=== PATIENT | female | born 1960 | race Caucasian/White ===

== ENCOUNTER 2019-02-23 19:57 | Emergency (ER) | payer MEDICARE, OTHER ==
--- NOTE | 2019-02-23 21:50 | ED ---
Extremity Problem HPI - General Chief complaint: Extremity Problem,Nontraumatic Stated complaint: Knee pain Time Seen by Provider: 02/23/19 21:31 Source: patient Mode of arrival: EMS Limitations: no limitations - History of Present Illness Initial comments: Patient is a 58-year-old female presenting to the emergency Department with complaints of left knee pain 2 days. Patient states her left knee started hurting yesterday but when she woke up this morning the pain has increased. Patient is having a hard time walking and is not able to bend the knee very far. Patient has no prior history of pain or injury in her left knee. Patient denies history of gout. Patient denies fever, chills, nausea, vomiting, redness to the area. No other complaints at this time. - Related Data Allergies Allergy/AdvReac Type Severity Reaction Status Date / Time No Known Allergies Allergy Verified 02/23/19 20:35 Review of Systems ROS Statement: Those systems with pertinent positive or pertinent negative responses have been documented in the HPI. ROS Other: All systems not noted in ROS Statement are negative. Past Medical History Past Medical History: COPD, Dementia, Hypertension, Thyroid Disorder Additional Past Medical History / Comment(s): Hernia History of Any Multi-Drug Resistant Organisms: None Reported Past Surgical History: Orthopedic Surgery Past Psychological History: No Psychological Hx Reported Smoking Status: Current every day smoker Past Alcohol Use History: None Reported Past Drug Use History: None Reported General Exam - General Exam Comments Initial Comments: GENERAL: Well-appearing, well-nourished and in no acute distress. HEAD: Atraumatic, normocephalic. EYES: Pupils equal round and reactive to light, extraocular movements intact, sclera anicteric, conjunctiva are normal. ENT: TMs normal, nares patent, oropharynx clear without exudates. Moist mucous membranes. NECK: Normal range of motion, supple without lymphadenopathy or JVD. LUNGS: Breath sounds clear to auscultation bilaterally and equal. No wheezes rales or rhonchi. HEART: Regular rate and rhythm without murmurs, rubs or gallops. ABDOMEN: Soft, nontender, normoactive bowel sounds. No guarding, no rebound. No masses appreciated. : Deferred EXTREMITIES: Pain with palpation on the lateral aspect of the left knee. Patient has full extension but limited flexion secondary to pain. There is no erythema of the left knee. NEUROLOGICAL: Cranial nerves II through XII grossly intact. Normal speech, normal gait. PSYCH: Normal mood, normal affect. SKIN: Warm, Dry, normal turgor, no rashes or lesions noted. Limitations: no limitations Course Vital Signs 02/23/19 02/23/19 20:30 22:25 Temperature 98.8 F 98.0 F Pulse Rate 99 88 Respiratory 19 22 Rate Blood Pressure 175/84 158/78 O2 Sat by Pulse 93 L 95 Oximetry Medical Decision Making - Medical Decision Making Patient is a 58-year-old female complains of left knee pain 2 days. Patient denies any fall or trauma to the knee. On exam patient is very tender to the lateral aspect of the left knee. There is no swelling of the knee or erythema. X-ray of the left knee shows a small calcification overlying the left LCL. No acute bony abnormalities. Patient will be discharged home and given instructions of icing and gentle range of motion. Patient was given orthopedic referral if symptoms continue for 1-2 weeks. Patient is in agreement with this plan. Return parameters were discussed with patient she verbalized understanding. Case discussed with Dr. Wills. Disposition Clinical Impression: Left lateral knee pain Disposition: HOME SELF-CARE Condition: Stable Instructions (If sedation given, give patient instructions): Knee Pain (ED) Additional Instructions: Please return to the Emergency Department if symptoms worsen or any other concerns. Use ice and Tylenol for knee pain as discussed. Follow up with orthopedic in one to 2 weeks if symptoms continue. Is patient prescribed a controlled substance at d/c from ED?: No Referrals: None,Stated [Primary Care Provider] - 1-2 days Silver Padilla MD [STAFF PHYSICIAN] - 1-2 days
--- NOTE | 2019-02-23 22:11 | XR ---
EXAM: XR Left Knee, 3 views CLINICAL HISTORY: ITS.REASON XR Reason: Pain TECHNIQUE: Three views of the left knee. COMPARISON: None. FINDINGS: Bones/joints: Mild tricompartmental arthrosis. Calcification overlying the left lateral collateral ligament which may represent sequela of prior injury. No acute fracture. No dislocation. Soft tissues: Unremarkable. IMPRESSION: 1. No acute osseous abnormality. 2. Mild tricompartmental arthrosis.
[2019-02-23 22:36] VITALS: BP 158/78; PULSE 88; RESP 22; TEMP 98
== END 2019-02-23 22:25 | disposition home or self-care (01) ==
LOC: EC 19:57
DX: M25.562 Pain in left knee (principal); R93.7 Abnormal findings on diagnostic imaging of other parts of musculoskeletal system; F17.200 Nicotine dependence, unspecified, uncomplicated
CPT/HCPCS: 99283

== ENCOUNTER 2019-04-12 18:43 | Inpatient (IN) | payer MEDICARE, OTHER ==
[2019-04-12] MEDS ORDERED: ALBUTEROL NEBULIZED 2.5 MG/3 ML INHALATION STA (19:20)
[2019-04-12] MEDS ORDERED: IPRATROPIUM 0.5 MG/2.5 ML NEBU INHALATION STA (19:20)
[2019-04-12] MEDS ORDERED: DEXAMETHASONE 4 MG TAB PO STA (19:21)
--- NOTE | 2019-04-12 19:24 | ED ---
General Adult HPI - General Chief complaint: Shortness of Breath Stated complaint: SOB Time Seen by Provider: 04/12/19 18:46 Source: patient, EMS Mode of arrival: EMS Limitations: no limitations - History of Present Illness Initial comments: Dictation was produced using [employer] dictation software. please excuse any grammatical, word or spelling errors. Chief Complaint: 59-year-old female presents with dyspnea. History of Present Illness: 89-year-old female she has been without her medications ever since she was kicked out of a homeless [place] [facility] 3 days ago. Patient states that her medications were thrown away when she got kicked out. She is without her albuterol. Patient reports that she does not have any primary care physician. At one point she was given an six-month supply from a doctor in [place]. Patient disposition to short of breath has not had her medications 3 days. Patient states she has had 4 medications that she does not know the name of them are. The ROS documented in this emergency department record has been reviewed and confirmed by me. Those systems with pertinent positive or negative responses have been documented in the HPI. All other systems are other negative and/or noncontributory. PHYSICAL EXAM: General Impression: Alert and oriented x3, not in acute distress HEENT: Normocephalic atraumatic, extra-ocular movements intact, pupils equal and reactive to light bilaterally, mucous membranes moist. Cardiovascular: Heart regular rate and rhythm, S1&S2 audible, no murmurs, rubs or gallops Chest: Diffuse lung wheezing Abdomen: Bowel sounds present, abdomen soft, non-tender, non-distended, no organomegaly Musculoskeletal: Pulses present and equal in all extremities, no peripheral edema Motor: no focal deficits noted Neurological: CN II-XII grossly intact, no focal motor or sensory deficits noted Skin: Intact with no visualized rashes Psych: Normal affect and mood ED course: 59-year-old female presents with mild COPD exacerbation secondary to medication. She is homeless and without resources to obtain his medications. As upon arrival shows heart rate of 111, O2 sat of 90, rest of vital signs within acceptable limits. Laboratory evaluation obtained. Mild occipital 0.9, rest of labs unremarkable. Chest x-ray shows questionable bilateral lower lobe infiltrates. Patient has any symptoms of pneumonia however given that patient have extensive history of COPD exacerbation patient is given azithromycin. Patient be admitted to observation for COPD exacerbation. EKG interpretation: Ventricular rate 104, sinus tachycardia,. 150, Q is 92, QTC 49. No AR prolongation, no QTC prolongation, no ST or T-wave changes noted. Overall, this EKG is unremarkable - Related Data Home Medications Medication Instructions Recorded Confirmed Albuterol Inhaler [Ventolin Hfa 1 - 2 puff INHALATION RT-Q6H PRN 04/12/19 04/12/19 Inhaler] Atorvastatin [Lipitor] 20 mg PO DAILY 04/12/19 04/12/19 Diltiazem HCl [Cardizem CD] 360 mg PO DAILY 04/12/19 04/12/19 Fluticasone/Vilanterol [Breo 1 puff INHALATION RT-DAILY 04/12/19 04/12/19 Ellipta 100-25 Mcg Inhaler] Ipratropium-Albuterol Nebulize 3 ml INHALATION RT-QID 04/12/19 04/12/19 [Duoneb 0.5 mg-3 mg/3 ml Soln] Levothyroxine Sodium 200 mcg PO DAILY 04/12/19 04/12/19 Lisinopril 40 mg PO BID 04/12/19 04/12/19 Omeprazole 20 mg PO DAILY 04/12/19 04/12/19 amLODIPine [Norvasc] 5 mg PO DAILY 04/12/19 04/12/19 metFORMIN HCL [Glucophage] 1,000 mg PO BID 04/12/19 04/12/19 Allergies Allergy/AdvReac Type Severity Reaction Status Date / Time NSAIDS (Non-Steroidal AdvReac ULCERS Verified 04/12/19 19:05 Anti-Inflamma Review of Systems ROS Statement: Those systems with pertinent positive or pertinent negative responses have been documented in the HPI. ROS Other: All systems not noted in ROS Statement are negative. Past Medical History Past Medical History: COPD, Dementia, Hypertension, Thyroid Disorder Additional Past Medical History / Comment(s): Hernia History of Any Multi-Drug Resistant Organisms: None Reported Past Surgical History: Orthopedic Surgery Past Psychological History: No Psychological Hx Reported Smoking Status: Current every day smoker Past Alcohol Use History: None Reported Past Drug Use History: None Reported General Exam Limitations: no limitations Course Vital Signs 04/12/19 04/12/19 04/12/19 18:46 19:45 20:00 Temperature 98.8 F Pulse Rate 111 H 100 102 H Respiratory 24 Rate Blood Pressure 170/102 O2 Sat by Pulse 90 L Oximetry 04/12/19 21:21 Temperature Pulse Rate 99 Respiratory 18 Rate Blood Pressure 144/79 O2 Sat by Pulse 94 L Oximetry Medical Decision Making - Lab Data Result diagrams: 04/12/19 19:55 04/12/19 19:55 Lab Results 04/12/19 04/12/19 Range/Units 19:55 19:55 WBC 12.9 H (3.8-10.6) k/uL RBC 4.98 (3.80-5.40) m/uL Hgb 13.7 (11.4-16.0) gm/dL Hct 43.2 (34.0-46.0) % MCV 86.7 (80.0-100.0) fL MCH 27.4 (25.0-35.0) pg MCHC 31.6 (31.0-37.0) g/dL RDW 16.2 H (11.5-15.5) % Plt Count 355 (150-450) k/uL Neutrophils % 58 % Lymphocytes % 28 % Monocytes % 4 % Eosinophils % 7 % Basophils % 1 % Neutrophils # 7.5 (1.3-7.7) k/uL Lymphocytes # 3.6 (1.0-4.8) k/uL Monocytes # 0.6 (0-1.0) k/uL Eosinophils # 0.9 H (0-0.7) k/uL Basophils # 0.2 (0-0.2) k/uL Hypochromasia Slight Anisocytosis Slight Sodium 137 (137-145) mmol/L Potassium 4.4 (3.5-5.1) mmol/L Chloride 106 (98-107) mmol/L Carbon Dioxide 23 (22-30) mmol/L Anion Gap 8 mmol/L BUN 23 H (7-17) mg/dL Creatinine 1.07 H (0.52-1.04) mg/dL Est GFR (CKD-EPI)AfAm 66 (>60 ml/min/1.73 sqM) Est GFR (CKD-EPI)NonAf 57 (>60 ml/min/1.73 sqM) Glucose 166 H (74-99) mg/dL Calcium 8.9 (8.4-10.2) mg/dL Disposition Clinical Impression: COPD exacerbation Disposition: ADMITTED IP TO THIS HOSP Condition: Fair Referrals: None,Stated [Primary Care Provider] - 1-2 days Decision Time: 21:25
--- NOTE | 2019-04-12 19:49 | XR ---
EXAMINATION TYPE: XR chest 2V DATE OF EXAM: 04/12/2019 COMPARISON: NONE HISTORY: Short of breath TECHNIQUE: Frontal and lateral views of the chest are obtained. FINDINGS: Heart and mediastinum are normal. There is a 1.5 cm dense nodular opacity in the left para spinal left lower lobe. There is no heart failure. There is probably some infiltrate in both lower lo bes. There is no pleural effusion. Bony thorax appears intact. There is no pleural effusion. IMPRESSION: Mild bilateral lower lobe pulmonary infiltrates. Left lower lobe nodule. This nodule cou ld be a granuloma. Follow-up is recommended show clearing.
[2019-04-12 20:20] LABS: Anisocytosis Slight; Basophils # (A) 0.2 k/uL (0-0.2); Basophils % (A) 1 %; Eosinophils # (A) 0.9 k/uL (0-0.7); Eosinophils % (A) 7 %; HCT 43.2 % (34.0-46.0); HGB 13.7 gm/dL (11.4-16.0); Hypochromasia Slight; Lymphocytes # (A) 3.6 k/uL (1.0-4.8); Lymphocytes % (A) 28 %; MCH 27.4 pg (25.0-35.0); MCHC 31.6 g/dL (31.0-37.0); MCV 86.7 fL (80.0-100.0); Mean Platelet Volume 7.4; Monocytes # (A) 0.6 k/uL (0-1.0); Monocytes % (A) 4 %; Neutrophils # (A) 7.5 k/uL (1.3-7.7); Neutrophils % (A) 58 %; Platelet Count 355 k/uL (150-450); RBC 4.98 m/uL (3.80-5.40); RDW 16.2 % (11.5-15.5); WBC 12.9 k/uL (3.8-10.6)
[2019-04-12 20:25] LABS: Calcium 8.9 mg/dL (8.4-10.2); Potassium 4.4 mmol/L (3.5-5.1)
[2019-04-12] MEDS ORDERED: AZITHROMYCIN 500 MG TAB PO STA (20:31)
[2019-04-12 23:11] LABS: Glucose,Whole Blood 174 mg/dL (75-99)
[2019-04-13] MEDS ORDERED: ALBUTEROL NEBULIZED 2.5 MG/3 ML INHALATION PRN (04:00)
[2019-04-13] MEDS: LEVOTHYROXINE 100 MCG TAB PO SCH (05:43)
[2019-04-13] MEDS: SYMBICORT 80-4.5 MCG INHALER INHALATION SCH ×2 (07:23→19:24)
[2019-04-13] MEDS: IPRATROPIUM-ALBUTEROL 3 ML NEB INHALATION PRN ×3 (07:23→15:14)
[2019-04-13] MEDS: metFORMIN 500 MG TAB PO SCH ×2 (07:44→20:50)
[2019-04-13] MEDS: amLODIPine 5 MG TAB PO SCH (07:44)
[2019-04-13] MEDS: ATORVASTATIN 20 MG TAB PO SCH (07:44)
[2019-04-13] MEDS: INSULIN ASPART (NovoLOG) 100 UNIT/ML VIAL SQ SCH ×4 (07:44→22:48)
[2019-04-13] MEDS: PANTOPRAZOLE 40 MG TABLET PO SCH (07:44)
[2019-04-13] MEDS: LISINOPRIL 20 MG TAB PO SCH ×2 (07:44→20:51)
[2019-04-13] MEDS: AZITHROMYCIN 500 MG TAB PO SCH (07:44)
[2019-04-13 07:45] LABS: Glucose,Whole Blood 276 mg/dL (75-99)
[2019-04-13] MEDS: DILTIAZEM CD 180 MG CAP.ER.24H PO SCH (07:58)
[2019-04-13 12:04] LABS: Glucose,Whole Blood 234 mg/dL (75-99)
[2019-04-13] MEDS ORDERED: ALPRAZolam 0.25 MG TAB PO PRN (16:04)
[2019-04-13] MEDS ORDERED: ACETAMINOPHEN TAB 500 MG TAB PO PRN (16:04)
[2019-04-13 16:59] LABS: Glucose,Whole Blood 179 mg/dL (75-99)
[2019-04-13] MEDS: NICOTINE 14MG/24HR PATCH TRANSDERM SCH (17:29)
[2019-04-13] MEDS: methylPREDNISolone SOD SUCCI 125 MG/2 ML VIAL IV SCH ×2 (17:37→23:52)
--- NOTE | 2019-04-13 18:25 | HP ---
HISTORY AND PHYSICAL DATE OF SERVICE: 04/13/2019 CHIEF COMPLAINT: Shortness of breath. HISTORY OF PRESENT ILLNESS: This 59-year-old woman with a past medical history of multiple medical problems, including COPD, history of diabetes, hypertension, hypothyroidism, hernia, being followed by no primary physician in the outpatient setting, apparently is currently homeless. The patient's medicines were thrown away when she was kicked out of the assisted, according to her. Currently the patient is having increased shortness of breath and cough and sputum. Patient came to [facility] and was admitted for further evaluation and treatment. Chest x-ray showed bilateral pneumonia, right more than left, and the patient was admitted for further evaluation. There is no history of any fever, rigor or chills at this time. PAST MEDICAL HISTORY: 1. COPD. 2. Diabetes mellitus. 3. Hypertension. 4. Hypothyroidism. 5. Hernia repair. HOME MEDICATIONS: 1. Glucophage 1000 mg p.o. b.i.d. 2. Norvasc 5 mg p.o. daily. 3. Omeprazole 20 mg p.o. daily. 4. Lisinopril 40 mg p.o. b.i.d. 5. Levothyroxine 200 mcg p.o. daily. 6. DuoNeb q.i.d. 7. Breo Ellipta 100/25 mg p.o. daily. 8. Cardizem CD 360 mg p.o. daily. 9. Lipitor 20 mg p.o. daily. 10.Ventolin HFA 1-2 puffs q.6 p.r.n. ALLERGIES: NSAIDS. FAMILY HISTORY: No history of heart disease or strokes in the family. SOCIAL HISTORY: History of smoking, ongoing. REVIEW OF SYSTEMS: ENT: Diminished hearing. Diminished vision. CARDIOVASCULAR SYSTEM: No angina, palpitations. RESPIRATORY SYSTEM: As mentioned earlier. GI: No nausea, vomiting. : No dysuria or retention. NERVOUS SYSTEM: No numbness, weakness. ALLERGY/IMMUNOLOGY: No asthma, hayfever. MUSCULOSKELETAL: As mentioned earlier. HEMATOLOGY/ONCOLOGY: No history of anemia. ENDOCRINE: Hypothyroidism. CONSTITUTIONAL: As mentioned earlier. DERMATOLOGY: Negative. RHEUMATOLOGY: Negative. PSYCHIATRY: As mentioned earlier. PHYSICAL EXAMINATION: Patient alert and oriented x3. Pulse is 68, blood pressure 107/61, respiration 16, temperature 98.2, pulse ox 94% on 3 L. HEENT: Conjunctivae normal. Oral mucosa moist. NECK: No jugular venous distention. No carotid bruit. No lymph node enlargement. CARDIOVASCULAR SYSTEM: S1, S2 muffled. No S3. No S4. RESPIRATORY SYSTEM: Breath sounds diminished at the bases. Breathing efforts are markedly increased. Bilateral scattered rhonchi and crackles. Expiratory wheezing also present. ABDOMEN: Soft, non-tender. No mass palpable. LEGS: No edema. No swelling. NERVOUS SYSTEM: Higher functions as mentioned earlier. Moves all 4 limbs. No focal motor or sensory deficit. LYMPHATICS: No lymph node palpable in neck, axillae or groin. SKIN: No ulcer, rash, bleeding. JOINTS: No active deforming arthropathy. LABS: WBC 12.9, hemoglobin 13.7. Sodium 137, potassium 4.4, creatinine 1.07. Accu-Cheks are 174, 276. ASSESSMENT: 1. Chronic obstructive pulmonary disease, acute exacerbation, with bilateral pneumonia, right more than left, possibly gram-negative. 2. Diabetes mellitus, type 2, with hyperglycemia. 3. Increased creatinine with possible acute renal failure, prerenal renal failure, acute tubular necrosis. 4. Increased white count. 5. History of chronic obstructive pulmonary disease. 6. Diabetes mellitus, type 2. 7. Hypertension. 8. Hypothyroidism. 9. History of hernia. 10.History of degenerative joint disease. 11.History of nicotine dependence, continued ongoing. 12.Obesity with body mass index 44.7. 13.Homelessness. RECOMMENDATIONS AND DISCUSSION: In this 59-year-old woman who presented with multiple complex medical issues, we will monitor the patient closely, continue the current management, continue symptomatic treatment. Will initiate pulmonary consultation. Will start bronchodilators. Otherwise, empiric antibiotics. Also recommend close followup with a primary physician Guarded prognosis because of multiple complex medical issues. Further recommendations to follow. Discussed with the patient, who understands and agrees. MMODL / IJN: [id number] /
[2019-04-13] MEDS: IPRATROPIUM-ALBUTEROL 3 ML NEB INHALATION SCH (19:26)
--- NOTE | 2019-04-13 19:43 | P.CNPUL ---
History of Present Illness Consult date: 04/13/19 Requesting physician: Marlo Weaver Reason for consult: dyspnea Chief complaint: Shortness of breath. History of present illness: This is a 59-year-old female patient with a history of hypertension, hypothyroidism, hyperlipidemia, chronic and ongoing tobacco dependence, COPD. She is on Breo, Ventolin HFA, DuoNeb inhalations. She had presented here to the emergency room today with complaints of increasing shortness of breath cough and congestion. She states she has been without her medications for at least 3 days now since she was kicked out of a long term. She states she did not have any primary care physician and her last medications were filled for a 6 month supply from physician in [place]. Chest x-ray shows mild bilateral lobe pulmonary infiltrates, left lower lobe nodule possible granuloma. Initial oxygen saturation 90% on room air. Influenza screen negative. White count 12.9. Hemoglobin 13.7. Creatinine 1.07. She's been initiated on DuoNeb inhalations, IV Solu-Medrol, Symbicort. She is on ceftriaxone and azithromycin. She is seen today in consultation on the regular medical floor. She is currently awake and alert in no acute distress. Breathing a bit easier tonight as compared to earlier this morning. Maintaining O2 saturations in the low 90s on 3 L/m per n mauro cannula. She's afebrile. Hemodynamically stable. Review of Systems REVIEW OF SYSTEMS: CONSTITUTIONAL: Denies any recent significant weight loss or weight gain. EYES: Diminished vision. EARS, NOSE, MOUTH, THROAT: Somewhat hard of hearing. Denies headaches, denies s ore throat. CARDIOVASCULAR: Denies chest pain, palpitations or syncopal episodes. RESPIRATORY: Positive for shortness of breath, cough, congestion no hemoptysis. GASTROINTESTINAL: Denies change in appetite, denies abdominal pain GENITOURINARY: Denies hematuria, denies infections. MUSKULOSKELETAL: Denies pain, denies swelling. INTEGUMENTARY: Denies rash, denies eczema. NEUROLOGICAL: Denies recent memory loss, no recent seizure activity. PSYCHIATRIC: Denies anxiety, denies depression. HEMATOLOGIC/LYMPHATIC: Denies anemia, denies enlarged lymph nodes. Past Medical History Past Medical History: COPD, Diabetes Mellitus, Hypertension, Thyroid Disorder Additional Past Medical History / Comment(s): Hernia History of Any Multi-Drug Resistant Organisms: None Reported Past Surgical History: Orthopedic Surgery Past Psychological History: No Psychological Hx Reported Smoking Status: Current every day smoker Past Alcohol Use History: None Reported Past Drug Use History: None Reported Medications and Allergies Home Medications Medication Instructions Recorded Confirmed Type Albuterol Inhaler [Ventolin Hfa 1 - 2 puff INHALATION RT-Q6H PRN 04/12/19 04/12/19 History Inhaler] Atorvastatin [Lipitor] 20 mg PO DAILY 04/12/19 04/12/19 History Diltiazem HCl [Cardizem CD] 360 mg PO DAILY 04/12/19 04/12/19 History Fluticasone/Vilanterol [Breo 1 puff INHALATION RT-DAILY 04/12/19 04/12/19 History Ellipta 100-25 Mcg Inhaler] Ipratropium-Albuterol Nebulize 3 ml INHALATION RT-QID 04/12/19 04/12/19 History [Duoneb 0.5 mg-3 mg/3 ml Soln] Levothyroxine Sodium 200 mcg PO DAILY 04/12/19 04/12/19 History Lisinopril 40 mg PO BID 04/12/19 04/12/19 History Omeprazole 20 mg PO DAILY 04/12/19 04/12/19 History amLODIPine [Norvasc] 5 mg PO DAILY 04/12/19 04/12/19 History metFORMIN HCL [Glucophage] 1,000 mg PO BID 04/12/19 04/12/19 History Allergies Allergy/AdvReac Type Severity Reaction Status Date / Time NSAIDS (Non-Steroidal AdvReac ULCERS Verified 04/12/19 19:05 Anti-Inflamma Physical Exam Vitals: Vital Signs Temp Pulse Pulse Resp BP BP Pulse Ox 04/13/19 19:26 90 94 L 04/13/19 15:28 92 04/13/19 15:14 88 04/13/19 15:12 16 04/13/19 14:07 98.2 F 68 16 107/61 94 L 04/13/19 11:12 100 04/13/19 10:57 100 04/13/19 08:00 20 04/13/19 07:39 96 04/13/19 07:24 92 04/13/19 05:00 98 F 94 20 127/76 93 L 04/12/19 22:50 98.1 F 99 20 161/89 92 L 04/12/19 22:13 98.8 F 95 20 148/85 93 L 04/12/19 21:47 90 L 04/12/19 21:21 99 24 144/79 94 L 04/12/19 20:00 102 H 04/12/19 19:55 22 04/12/19 19:45 100 Intake and Output 04/13/19 04/13/19 04/13/19 06:59 14:59 22:59 Intake Total 100 520 Balance 100 520 Intake: Oral 100 520 Other: Voiding Method Toilet Toilet Toilet # Voids 2 3 GENERAL EXAM: Alert, pleasant 59-year-old female, comfortable in no apparent distress. On 3 L per nasal cannula. HEAD: Normocephalic. EYES: Normal reaction of pupils, equal size. NOSE: Clear with pink turbinates. THROAT: No erythema or exudates. NECK: No masses, no JVD. CHEST: No chest wall deformity. LUNGS: Equal air entry with end expiratory wheeze, diminished. CVS: S1 and S2 normal with no audible murmur, regular rhythm. ABDOMEN: No hepatosplenomegaly, normal bowel sounds, no guarding or rigidity. SPINE: No scoliosis or deformity SKIN: No rashes CENTRAL NERVOUS SYSTEM: No focal deficits, tone is normal in all 4 extremities. EXTREMITIES: There is no peripheral edema. No clubbing, no cyanosis. Peripheral pulses are intact. Results - Laboratory Findings CBC and BMP: 04/12/19 19:55 04/12/19 19:55 Abnormal lab findings: Abnormal Labs 04/12/19 04/12/19 04/12/19 19:55 19:55 22:58 WBC 12.9 H RDW 16.2 H Eosinophils # 0.9 H BUN 23 H Creatinine 1.07 H Glucose 166 H POC Glucose (mg/dL) 174 H 04/13/19 04/13/19 04/13/19 07:22 11:59 16:54 WBC RDW Eosinophils # BUN Creatinine Glucose POC Glucose (mg/dL) 276 H 234 H 179 H - Diagnostic Findings Chest x-ray: image reviewed Assessment and Plan Assessment: Impression: #1 Acute hypoxic respiratory failure secondary to an acute exacerbation of chronic obstructive pulmonary disease secondary to lack of outpatient medication. #2 Chronic and ongoing tobacco dependence. #3 Hypothyroidism. #4 Hypertension. #5 Hyperlipidemia. #6 Hypothyroidism. Plan: The patient was seen and evaluated by Dr. Roberts. Chest x-ray and labs reviewed. We'll continue with the treatment plan for her COPD exacerbation including DuoNeb inhalations, Symbicort, IV Solu medrol. Empiric antibiotics in the form of ceftriaxone and azithromycin. No clear evidence of pneumonia. She is educated regarding the importance of complete smoking cessation. NicoDerm patch is in place. real estate services coordinator for discharge planning as the patient is currently homeless. Will continue to follow and make further recommendations based on her clinical status. I, the cosigning physician, performed a history & physical examination of the patient. Lungs sounds with end expiratory wheeze.. Maintaining good O2 saturations in the 90s on 3 L/m per nasal cannula I discussed the assessment and plan of care with my nurse practitioner, Esme Smith. I attest to the above note as dictated by her. Time with Patient: Greater than 30
[2019-04-13] MEDS: HEPARIN SODIUM,PORCINE 5,000 UNIT/ML 1 ML VIAL SQ SCH (20:51)
[2019-04-13 21:26] LABS: Glucose,Whole Blood 244 mg/dL (75-99)
[2019-04-14] MEDS: IPRATROPIUM-ALBUTEROL 3 ML NEB INHALATION PRN (00:49)
[2019-04-14] MEDS: methylPREDNISolone SOD SUCCI 125 MG/2 ML VIAL IV SCH ×2 (05:27→12:37)
[2019-04-14] MEDS: LEVOTHYROXINE 100 MCG TAB PO SCH (05:28)
[2019-04-14 07:17] LABS: Glucose,Whole Blood 264 mg/dL (75-99)
[2019-04-14] MEDS: AZITHROMYCIN 500 MG TAB PO SCH (07:45)
[2019-04-14] MEDS: PANTOPRAZOLE 40 MG TABLET PO SCH (07:45)
[2019-04-14] MEDS: ATORVASTATIN 20 MG TAB PO SCH (07:45)
[2019-04-14] MEDS: LISINOPRIL 20 MG TAB PO SCH ×2 (07:45→20:43)
[2019-04-14] MEDS: amLODIPine 5 MG TAB PO SCH (07:45)
[2019-04-14] MEDS: INSULIN ASPART (NovoLOG) 100 UNIT/ML VIAL SQ SCH ×4 (07:45→20:48)
[2019-04-14] MEDS: NICOTINE 14MG/24HR PATCH TRANSDERM SCH (07:45)
[2019-04-14] MEDS: MULTIVITAMINS, THERA 1 EACH TAB PO SCH (07:46)
[2019-04-14] MEDS: HEPARIN SODIUM,PORCINE 5,000 UNIT/ML 1 ML VIAL SQ SCH ×3 (07:46→20:43)
[2019-04-14] MEDS: DILTIAZEM CD 180 MG CAP.ER.24H PO SCH (07:46)
[2019-04-14] MEDS: metFORMIN 500 MG TAB PO SCH ×2 (07:46→20:43)
[2019-04-14] MEDS: IPRATROPIUM-ALBUTEROL 3 ML NEB INHALATION SCH ×4 (09:16→21:47)
[2019-04-14] MEDS: SYMBICORT 80-4.5 MCG INHALER INHALATION SCH ×2 (09:16→21:47)
[2019-04-14 10:02] LABS: Anisocytosis Slight; Basophils % (A) 0 %; Eosinophils # (A) 0.1 k/uL (0-0.7); Eosinophils % (A) 1 %; HGB 13.2 gm/dL (11.4-16.0); Lymphocytes # (A) 1.5 k/uL (1.0-4.8); Lymphocytes % (A) 13 %; MCH 27.3 pg (25.0-35.0); MCHC 31.4 g/dL (31.0-37.0); MCV 86.9 fL (80.0-100.0); Monocytes # (A) 0.2 k/uL (0-1.0); Monocytes % (A) 1 %; Neutrophils # (A) 9.4 k/uL (1.3-7.7); Neutrophils % (A) 84 %; Platelet Count 421 k/uL (150-450); RBC 4.83 m/uL (3.80-5.40); RDW 16.4 % (11.5-15.5); WBC 11.1 k/uL (3.8-10.6)
[2019-04-14 10:09] LABS: Calcium 9.1 mg/dL (8.4-10.2); Potassium 5.2 mmol/L (3.5-5.1)
[2019-04-14 12:18] LABS: Glucose,Whole Blood 311 mg/dL (75-99)
[2019-04-14 13:22] LABS: Glucose,Whole Blood 286 mg/dL (75-99)
--- NOTE | 2019-04-14 13:58 | P.PN ---
Subjective Progress Note Date: 04/14/19 Principal diagnosis: Acute exacerbation of chronic obstructive pulmonary disease. This is a 59-year-old female patient with a history of hypertension, hypothyroidism, hyperlipidemia, chronic and ongoing tobacco dependence, COPD. She is on Breo, Ventolin HFA, DuoNeb inhalations. She had presented here to the emergency room today with complaints of increasing shortness of breath cough and congestion. She states she has been without her medications for at least 3 days now since she was kicked out of a jail. She states she did not have any primary care physician and her last medications were filled for a 6 month supply from physician in [place]. Chest x-ray shows mild bilateral lobe pulmonary infiltrates, left lower lobe nodule possible granuloma. Initial oxygen saturation 90% on room air. Influenza screen negative. White count 12.9. Hemoglobin 13.7. Creatinine 1.07. She's been initiated on DuoNeb inhalations, IV Solu-Medrol, Symbicort. She is on ceftriaxone and azithromycin. She is seen today in consultation on the regular medical floor. She is currently awake and alert in no acute distress. Breathing a bit easier tonight as compared to earlier this morning. Maintaining O2 saturations in the low 90s on 3 L/m per nasal cannula. She's afebrile. Hemodynamically stable. The patient is seen today 04/14/2019 in follow-up on the regular medical floor. She is awake and alert in no acute distress. She is breathing a bit easier today as compared to yesterday. Not quite back to her baseline. 18 O2 saturations in the 90s on room air. She's afebrile. Count 11.1. Hemoglobin 13.2. Creatinine 1.44. Objective - Vital Signs Vital signs: Vital Signs Temp 97.6 F 04/14/19 12:10 Pulse 76 04/14/19 13:14 Resp 20 04/14/19 12:10 BP 102/58 04/14/19 12:10 Pulse Ox 91 L 04/14/19 12:10 Intake & Output 04/13/19 04/14/19 04/14/19 18:59 06:59 18:59 Intake Total 520 Balance 520 Intake: Oral 520 Other: Voiding Method Toilet Toilet # Voids 3 0 1 # Bowel Movements 0 - Exam GENERAL EXAM: Alert, pleasant 59-year-old female, comfortable in no apparent distress. On room air. HEAD: Normocephalic. EYES: Normal reaction of pupils, equal size. NOSE: Clear with pink turbinates. THROAT: No erythema or exudates. NECK: No masses, no JVD. CHEST: No chest wall deformity. LUNGS: Equal air entry with end expiratory wheeze, diminished. CVS: S1 and S2 normal with no audible murmur, regular rhythm. ABDOMEN: No hepatosplenomegaly, normal bowel sounds, no guarding or rigidity. SPINE: No scoliosis or deformity SKIN: No rashes CENTRAL NERVOUS SYSTEM: No focal deficits, tone is normal in all 4 extremities. EXTREMITIES: There is no peripheral edema. No clubbing, no cyanosis. Peripheral pulses are intact. - Labs CBC & Chem 7: 04/14/19 09:04/14/19 09: Labs: Abnormal Lab Results - Last 24 Hours (Table) 04/13/19 04/13/19 04/14/19 Range/Units 16:54 21:17 07:16 WBC (3.8-10.6) k/uL RDW (11.5-15.5) % Neutrophils # (1.3-7.7) k/uL Sodium (137-145) mmol/L Potassium (3.5-5.1) mmol/L Carbon Dioxide (22-30) mmol/L BUN (7-17) mg/dL Creatinine (0.52-1.04) mg/dL Glucose (74-99) mg/dL POC Glucose (mg/dL) 179 H 244 H 264 H (75-99) mg/dL 04/14/19 04/14/19 04/14/19 Range/Units 09:26 09:26 12:12 WBC 11.1 H (3.8-10.6) k/uL RDW 16.4 H (11.5-15.5) % Neutrophils # 9.4 H (1.3-7.7) k/uL Sodium 132 L (137-145) mmol/L Potassium 5.2 H (3.5-5.1) mmol/L Carbon Dioxide 18 L (22-30) mmol/L BUN 42 H (7-17) mg/dL Creatinine 1.44 H (0.52-1.04) mg/dL Glucose 305 H (74-99) mg/dL POC Glucose (mg/dL) 311 H (75-99) mg/dL 04/14/19 Range/Units 13:19 WBC (3.8-10.6) k/uL RDW (11.5-15.5) % Neutrophils # (1.3-7.7) k/uL Sodium (137-145) mmol/L Potassium (3.5-5.1) mmol/L Carbon Dioxide (22-30) mmol/L BUN (7-17) mg/dL Creatinine (0.52-1.04) mg/dL Glucose (74-99) mg/dL POC Glucose (mg/dL) 286 H (75-99) mg/dL Assessment and Plan Assessment: Impression: #1 Acute hypoxic respiratory failure secondary to an acute exacerbation of chronic obstructive pulmonary disease secondary to lack of outpatient medication. #2 Chronic and ongoing tobacco dependence. #3 Hypothyroidism. #4 Hypertension. #5 Hyperlipidemia. #6 Hypothyroidism. Plan: The patient was seen and evaluated by Dr. Roberts. He is improved today as compared to yesterday. We'll continue with the current treatment plan. She is educated regarding the importance of complete smoking cessation. NicoDerm patch is in place. human resources services specialist for discharge planning as the patient is currently homeless. Will continue to follow and make further recommendations based on her clinical status. I, the cosigning physician, performed a history & physical examination of the patient. Lungs sounds with end expiratory wheeze.. Maintaining good O2 saturations in the 90s on room air I discussed the assessment and plan of care with my nurse practitioner, Esme Smith. I attest to the above note as dictated by her.
[2019-04-14] MEDS ORDERED: INSULIN REGULAR 100 UNIT/ML VIAL SQ ONE (14:07)
[2019-04-14] MEDS ORDERED: INSULIN ASPART (NovoLOG) 100 UNIT/ML VIAL SQ ONE (14:28)
[2019-04-14] MEDS ORDERED: ONDANSETRON 4 MG/2 ML VIAL IVP PRN (14:36)
[2019-04-14] MEDS: HYDROcodone/APAP 5-325MG 1 EACH TAB PO PRN ×2 (14:43→20:41)
--- NOTE | 2019-04-14 17:17 | XR ---
EXAMINATION TYPE: XR chest 1V portable DATE OF EXAM: 04/14/2019 COMPARISON: 04/12/2019 HISTORY: Pneumonia TECHNIQUE: Single frontal view of the chest is obtained. FINDINGS: Heart and mediastinum are normal. Lungs are clear. Diaphragm is normal. There is no sign o f pleural effusion. IMPRESSION: No active cardiopulmonary disease. No adverse change compared to recent exam.
[2019-04-14] MEDS: methylPREDNISolone SOD SUCCI 40 MG/ML 1 ML VIAL IV SCH (17:36)
[2019-04-14 17:42] LABS: Glucose,Whole Blood 255 mg/dL (75-99)
[2019-04-14 20:50] LABS: Glucose,Whole Blood 255 mg/dL (75-99)
[2019-04-14 21:04] LABS: Hemoglobin A1C 6.7 % (4.0-6.0)
--- NOTE | 2019-04-14 21:12 | PN ---
PROGRESS NOTE DATE OF SERVICE: 04/14/2019. This 59-year-old woman was admitted with COPD acute exacerbation as well as possible bilateral pneumonia, is being closely monitored at this time. The patient's blood sugar is also elevated up to 311 at this time. Patient also had mild hyponatremia and mild hyperkalemia as well. PAST MEDICAL HISTORY: Reviewed. REVIEW OF SYSTEMS: Cardiovascular system: No angina or palpitations. RESPIRATORY: As mentioned earlier. GI no nausea or vomiting. no dysuria. NERVOUS SYSTEM: No numbness or weakness. ALLERGY/IMMUNOLOGY: No asthma, hayfever. CURRENT MEDICATIONS: Current medications are reviewed and include: 1. Tylenol 500 mg q.6h p.r.n. 2. [place] 5 mg q.6h p.r.n. 3. DuoNeb q.i.d. and p.r.n. 4. Xanax 0.5 t.i.d. 5. Norvasc 5 mg p.o. daily. 6. Lipitor 20 mg. 7. Zithromax 500 mg daily. 8. Symbicort 80/4.5 two puffs b.i.d. 9. Rocephin 1 g daily. 10.Cardizem 360 mg daily. 11.Heparin 5000 subcu b.i.d. 12.NovoLog a.c. and q.h.s. 13.Synthroid 200 mcg p.o. daily. 14.Zestril 40 mg p.o. b.i.d. 15.Glucophage 1000 mg p.o. b.i.d. 16.Solu-Medrol 40 IV q.8h. 17.Multivitamins one p.o. daily. 18.Habitrol 14 daily. 19.Zofran p.r.n. 20.Protonix 40 mg p.o. daily. PHYSICAL EXAM: Patient is alert and oriented x2. Pulse is 71. Blood pressure 102/58, respiration 20, temperature 97.6, pulse ox 91 percent on room air. HEENT is conjunctivae normal. NECK: No JVD. CARDIOVASCULAR: S1, S2. RESPIRATIONS: Breath sounds diminished in the bases. Bilateral scattered rhonchi and crackles. ABDOMEN: Soft, nontender. No mass palpable. LEGS: No edema. No swelling. NERVOUS SYSTEM: Higher functions as mentioned earlier. Moves all four limbs. No focal motor or sensory deficits. SKIN: No ulcer, no rash. No bleeding. JOINTS: No active deforming arthropathy. LABS: WBC 11.1, sodium 132, potassium 5.2. Creatinine is 1.44. Influenza is negative. ASSESSMENT: 1. Chronic obstructive pulmonary disease acute exacerbation with acute bilateral pneumonia, right more than the left with possibly gram-negative. 2. Diabetes mellitus type 2 with hyperglycemia. 3. Increased creatinine with possible acute renal failure possible acute tubular necrosis with prerenal factors. 4. Increased WBC. 5. Chronic obstructive pulmonary disease history. 6. Hypertension. 7. Hypothyroidism. 8. History of hernia. 9. History of degenerative joint disease. 10.History of nicotine dependence, continued ongoing. 11.Obesity with body mass index of 44.7. 12.Homelessness. RECOMMENDATIONS AND DISCUSSION: In this 59-year-old woman who presented with multiple complex medical issues, we will monitor the patient closely, continue the current medications, management and symptomatic treatment. We will taper the steroids at this time. We will repeat labs. Monitor blood sugars closely and additional dose of steroids ordered to control the blood sugars. Continue the antibiotics. I would also recommend repeat chest x-ray also to evaluate for any persistent pneumonia. Otherwise, prognosis guarded because of multiple complex medical issues. Further recommendations to follow. MMODL / IJN: [id number] /
[2019-04-15] MEDS: methylPREDNISolone SOD SUCCI 40 MG/ML 1 ML VIAL IV SCH ×2 (01:08→08:34)
[2019-04-15] MEDS: LEVOTHYROXINE 100 MCG TAB PO SCH (05:31)
[2019-04-15 07:21] LABS: Glucose,Whole Blood 236 mg/dL (75-99)
[2019-04-15] MEDS: IPRATROPIUM-ALBUTEROL 3 ML NEB INHALATION SCH ×4 (07:36→21:38)
[2019-04-15] MEDS: SYMBICORT 80-4.5 MCG INHALER INHALATION SCH ×2 (07:36→21:38)
[2019-04-15] MEDS: PANTOPRAZOLE 40 MG TABLET PO SCH (08:25)
[2019-04-15] MEDS: DILTIAZEM CD 180 MG CAP.ER.24H PO SCH (08:25)
[2019-04-15] MEDS: AZITHROMYCIN 500 MG TAB PO SCH (08:25)
[2019-04-15] MEDS: NICOTINE 14MG/24HR PATCH TRANSDERM SCH (08:25)
[2019-04-15] MEDS: metFORMIN 500 MG TAB PO SCH (08:25)
[2019-04-15] MEDS: amLODIPine 5 MG TAB PO SCH (08:25)
[2019-04-15] MEDS: LISINOPRIL 20 MG TAB PO SCH (08:25)
[2019-04-15] MEDS: ATORVASTATIN 20 MG TAB PO SCH (08:25)
[2019-04-15] MEDS: MULTIVITAMINS, THERA 1 EACH TAB PO SCH (08:25)
[2019-04-15] MEDS: INSULIN ASPART (NovoLOG) 100 UNIT/ML VIAL SQ SCH ×4 (08:26→21:04)
[2019-04-15] MEDS: HEPARIN SODIUM,PORCINE 5,000 UNIT/ML 1 ML VIAL SQ SCH ×2 (08:26→21:04)
[2019-04-15 08:50] LABS: Anisocytosis Slight; Basophils % (A) 0 %; Eosinophils % (A) 0 %; HCT 42.8 % (34.0-46.0); HGB 13.6 gm/dL (11.4-16.0); Lymphocytes # (A) 1.4 k/uL (1.0-4.8); Lymphocytes % (A) 11 %; MCH 27.6 pg (25.0-35.0); MCHC 31.8 g/dL (31.0-37.0); MCV 86.9 fL (80.0-100.0); Monocytes # (A) 0.3 k/uL (0-1.0); Monocytes % (A) 3 %; Neutrophils % (A) 86 %; Platelet Count 444 k/uL (150-450); RBC 4.93 m/uL (3.80-5.40); RDW 16.7 % (11.5-15.5); WBC 12.9 k/uL (3.8-10.6)
[2019-04-15 09:04] LABS: Calcium 9.4 mg/dL (8.4-10.2); Potassium 5.9 mmol/L (3.5-5.1)
[2019-04-15] MEDS: HYDROcodone/APAP 5-325MG 1 EACH TAB PO PRN ×2 (11:56→19:42)
[2019-04-15 11:58] LABS: Glucose,Whole Blood 240 mg/dL (75-99)
[2019-04-15] MEDS: predniSONE 20 MG TAB PO SCH (12:00)
--- NOTE | 2019-04-15 13:13 | P.PN ---
Subjective Progress Note Date: 04/15/19 Acute exacerbation of chronic obstructive pulmonary disease. This is a 59-year-old female patient with a history of hypertension, hypothyroidism, hyperlipidemia, chronic and ongoing tobacco dependence, COPD. She is on Breo, Ventolin HFA, DuoNeb inhalations. She had presented here to the emergency room today with complaints of increasing shortness of breath cough and congestion. She states she has been without her medications for at least 3 days now since she was kicked out of a retirement. She states she did not have any primary care physician and her last medications were filled for a 6 month supply from physician in [place]. Chest x-ray shows mild bilateral lobe pulmonary infiltrates, left lower lobe nodule possible granuloma. Initial oxygen saturation 90% on room air. Influenza screen negative. White count 12.9. Hemoglobin 13.7. Creatinine 1.07. She's been initiated on DuoNeb inhalations, IV Solu-Medrol, Symbicort. She is on ceftriaxone and azithromycin. She is seen today in consultation on the regular medical floor. She is currently awake and alert in no acute distress. Breathing a bit easier tonight as compared to earlier this morning. Maintaining O2 saturations in the low 90s on 3 L/m per nasal cannula. She's afebrile. Hemodynamically stable. The patient is seen today 04/14/2019 in follow-up on the regular medical floor. She is awake and alert in no acute distress. She is breathing a bit easier today as compared to yesterday. Not quite back to her baseline. 18 O2 saturations in the 90s on room air. She's afebrile. Count 11.1. Hemoglobin 13.2. Creatinine 1.44. On 04/15/2019 the patient is slowly improving pH is less short of breath. Less bronchospastic and wheezy. She has no new complaints. She is worried about her discharge planning of the patient is homeless and she was living in a retirement from which she was let go. Her white cell count of 12.8. She was treated with IV Solu Medrol and she was switched to prednisone burst taper starting with 40 mg. He is still on DuoNeb nebulized treatments around the clock. She is also on Rocephin and Zithromax. She did develop an acute kidney injury. On today's evaluation creatinine is up to 1.7 exact cause for this is not clear. I'm going to stop the ERLIN inhibitor. She did not receive any form of nephrotoxic medications. She'll be given IV fluids accordingly. We'll continue to follow. We'll monitor urine output. Objective - Vital Signs Vital signs: Vital Signs Temp 97.7 F 04/15/19 07:00 Pulse 80 04/15/19 11:43 Resp 20 04/15/19 07:00 BP 113/70 04/15/19 07:00 Pulse Ox 91 L 04/15/19 07:00 Intake & Output 04/14/19 04/15/19 04/15/19 18:59 06:59 18:59 Intake Total 200 Balance 200 Intake: Oral 200 Other: Voiding Method Toilet # Voids 3 0 # Bowel Movements 0 - Exam GENERAL EXAM: Alert, pleasant 59-year-old female, comfortable in no apparent distress. On room air. HEAD: Normocephalic. EYES: Normal reaction of pupils, equal size. NOSE: Clear with pink turbinates. THROAT: No erythema or exudates. NECK: No masses, no JVD. CHEST: No chest wall deformity. LUNGS: Equal air entry with end expiratory wheeze, diminished. CVS: S1 and S2 normal with no audible murmur, regular rhythm. ABDOMEN: No hepatosplenomegaly, normal bowel sounds, no guarding or rigidity. SPINE: No scoliosis or deformity SKIN: No rashes CENTRAL NERVOUS SYSTEM: No focal deficits, tone is normal in all 4 extremities. EXTREMITIES: There is no peripheral edema. No clubbing, no cyanosis. Peripheral pulses are intact. - Labs CBC & Chem 7: 04/15/19 08:24 04/15/19 08:24 Labs: Abnormal Lab Results - Last 24 Hours (Table) 04/14/19 04/14/19 04/14/19 Range/Units 09:26 13:19 17:14 WBC (3.8-10.6) k/uL RDW (11.5-15.5) % Neutrophils # (1.3-7.7) k/uL Sodium (137-145) mmol/L Potassium (3.5-5.1) mmol/L Carbon Dioxide (22-30) mmol/L BUN (7-17) mg/dL Creatinine (0.52-1.04) mg/dL Glucose (74-99) mg/dL POC Glucose (mg/dL) 286 H 255 H (75-99) mg/dL Hemoglobin A1c 6.7 H (4.0-6.0) % 04/14/19 04/15/19 04/15/19 Range/Units 20:47 07:14 08:24 WBC 12.9 H (3.8-10.6) k/uL RDW 16.7 H (11.5-15.5) % Neutrophils # 11.0 H (1.3-7.7) k/uL Sodium (137-145) mmol/L Potassium (3.5-5.1) mmol/L Carbon Dioxide (22-30) mmol/L BUN (7-17) mg/dL Creatinine (0.52-1.04) mg/dL Glucose (74-99) mg/dL POC Glucose (mg/dL) 255 H 236 H (75-99) mg/dL Hemoglobin A1c (4.0-6.0) % 04/15/19 04/15/19 Range/Units 08:24 11:49 WBC (3.8-10.6) k/uL RDW (11.5-15.5) % Neutrophils # (1.3-7.7) k/uL Sodium 134 L (137-145) mmol/L Potassium 5.9 H (3.5-5.1) mmol/L Carbon Dioxide 18 L (22-30) mmol/L BUN 61 H (7-17) mg/dL Creatinine 1.70 H (0.52-1.04) mg/dL Glucose 265 H (74-99) mg/dL POC Glucose (mg/dL) 240 H (75-99) mg/dL Hemoglobin A1c (4.0-6.0) % Assessment and Plan Plan: #1 Acute hypoxic respiratory failure secondary to an acute exacerbation of chronic obstructive pulmonary disease secondary to lack of outpatient medication. The patient is a chronic smoker. The patient was Hospital as for an acute COPD exacerbation pH is gradually improving. She is less short of breath on today's evaluation. She is on a prednisone burst taper. She is also on Rocephin and Zithromax. #2 Chronic and ongoing tobacco dependence. #3 Hypothyroidism. #4 Hypertension. #5 Hyperlipidemia. #6 Hypothyroidism. #7 acute kidney injury, the exact cause is not clear. The creatinine is up and the patient is nonoliguric. Rule out ATN. No intake of any nephrotoxic agents. Plan: Monitor urine output. Start the patient normal sed rate of 75 mL's an hour. Repeat blood work in a.m. Obtain ultrasound the kidneys. Nephrology consultation no improvement. Continue prednisone burst taper. Continue DuoNeb nebulized treatments around the clock. We'll continue to follow. While, it's reasonable to stop the ERLIN inhibitor was at the higher dose of 40 mg of lisinopril daily basis.
[2019-04-15] MEDS: SODIUM CHLORIDE 0.9% 1,000 ML IV SCH (13:50)
--- NOTE | 2019-04-15 15:43 | US ---
EXAMINATION TYPE: US kidneys/renal and bladder DATE OF EXAM: 04/15/2019 COMPARISON: NONE CLINICAL HISTORY: PARMINDER. Abnormal labs EXAM MEASUREMENTS: Right Kidney: 10.4 x 4.3 x 4.4 cm Left Kidney: 10.1 x 5.1 x 4.8 cm Pt morbidly obese, difficult exam Right Kidney: Lobulated contour, otherwise appeared wnl Left Kidney: Lobulated contour, otherwise appeared wnl Bladder: Unable to visualize due to large pt body habitus There is no evidence for hydronephrosis at this point in time. No nephrolithiasis is seen. No steven s are identified. The urinary bladder is anechoic. Bilateral ureteral jets are seen. IMPRESSION: No evidence of renal mass or obstruction. Urinary bladder not well evaluated.
[2019-04-15 17:31] LABS: Glucose,Whole Blood 172 mg/dL (75-99)
[2019-04-15] MEDS ORDERED: SODIUM POLYSTYRENE SULFONATE 15 GM/60 ML BOTTLE PO STA (17:34)
--- NOTE | 2019-04-15 19:45 | PN ---
PROGRESS NOTE DATE OF SERVICE: 04/15/2019. This 59-year-old woman was admitted with COPD exacerbation as well as pneumonia is being closely monitored. The patient has significant shortness of breath with cough also. Ultrasound of the abdomen showed no evidence of renal mass or obstruction at this time. The creatinine is elevated. Patient also had hyperkalemia, hyponatremia, also. Kayexalate. Blood sugars elevated. The patient being closely monitored. The patient is apparently homeless currently. Pulmonary is following the patient closely. PAST MEDICAL HISTORY: Reviewed. REVIEW OF SYSTEMS: CARDIOVASCULAR SYSTEM: No angina or palpitations. RESPIRATORY: As mentioned earlier. GI no nausea or vomiting. as mentioned earlier. CENTRAL NERVOUS SYSTEM: No numbness or weakness. CURRENT MEDICATIONS: Reviewed and include: 1. Tylenol p.r.n. 2. [place] 5 mg. 3. DuoNeb q.i.d. and p.r.n. 4. Xanax 0.5 t.i.d. 5. Norvasc 5 mg daily. 6. Lipitor 20 mg p.o. daily. 7. Zithromax 500 mg daily. 8. Symbicort 160/4.5 2 puffs b.i.d. 9. Rocephin 1 g daily. 10.Cardizem. 11.Heparin 5000 subcu b.i.d. 12.NovoLog. 13.Synthroid. 14.Multivitamins. 15.Habitrol 14. 16.Protonix. 17.Prednisone. 18.Kayexalate. PHYSICAL EXAM: Patient is alert and oriented times three. Pulse 72, blood pressure 120/79, respirations 16, temperature 97.8, pulse ox 97 percent on room air. HEENT: Conjunctivae normal. Oral mucosa moist. NECK is no jugular venous distention. No carotid bruit. No lymph node enlargement. CARDIOVASCULAR SYSTEM: S1, S2 muffled. RESPIRATORY: Breath sounds diminished in the bases. Bilateral scattered rhonchi and crackles. ABDOMEN: Soft, nontender. No mass palpable. LEGS: No edema. No swelling. NERVOUS SYSTEM: Higher functions as mentioned earlier. Moves all four limbs. No focal motor or sensory deficits. Lymphatics: No lymph nodes palpable in the neck, axillae or groin. SKIN: No ulcer, rashes or bleeding. JOINTS: No active deforming arthropathy. LABS: WBC 12.2, hemoglobin 13.2. Sodium 130, potassium 5.2. Creatinine is 1.7. ASSESSMENT: 1. Chronic obstructive pulmonary disease acute exacerbation with acute bilateral pneumonia, right more the left possibly gram-negative. 2. Diabetes mellitus type 2 with hyperglycemia. 3. Increased creatinine with possible acute renal failure with possible acute tubular necrosis with prerenal factors. 4. Hyperkalemia. 5. Hyponatremia. 6. Increased WBC. 7. Chronic obstructive pulmonary disease. 8. Hypertension. 9. Hypothyroidism. 10.History of hernia. 11.History of degenerative joint disease. 12.History of nicotine dependence, continued ongoing. 13.Obesity with body mass index 44.7. 14.Homelessness. RECOMMENDATIONS AND DISCUSSION: Recommend to continue current medications, management and symptomatic treatment. Recommend low-potassium diet, Kayexalate, exact etiology of hyperkalemia unclear at this time. We will hold metformin. Monitor blood sugars closely. The overall prognosis guarded because of multiple complex medical issues. Further recommendations to follow. Continue the antibiotics. Follow closely with Pulmonary. MMODL / IJN: [id number] /
[2019-04-15 20:23] LABS: Glucose,Whole Blood 230 mg/dL (75-99)
[2019-04-16] MEDS: SODIUM CHLORIDE 0.9% 1,000 ML IV SCH ×2 (06:11→12:27)
[2019-04-16] MEDS: LEVOTHYROXINE 100 MCG TAB PO SCH (06:11)
[2019-04-16] MEDS: HYDROcodone/APAP 5-325MG 1 EACH TAB PO PRN ×2 (06:12→17:09)
[2019-04-16 07:13] LABS: Glucose,Whole Blood 221 mg/dL (75-99)
[2019-04-16] MEDS: DILTIAZEM CD 180 MG CAP.ER.24H PO SCH (07:54)
[2019-04-16] MEDS: MULTIVITAMINS, THERA 1 EACH TAB PO SCH (07:55)
[2019-04-16] MEDS: AZITHROMYCIN 500 MG TAB PO SCH (07:55)
[2019-04-16] MEDS: amLODIPine 5 MG TAB PO SCH (07:55)
[2019-04-16] MEDS: ATORVASTATIN 20 MG TAB PO SCH (07:55)
[2019-04-16] MEDS: HEPARIN SODIUM,PORCINE 5,000 UNIT/ML 1 ML VIAL SQ SCH ×2 (07:55→21:42)
[2019-04-16] MEDS: predniSONE 20 MG TAB PO SCH (07:56)
[2019-04-16] MEDS: NICOTINE 14MG/24HR PATCH TRANSDERM SCH (07:56)
[2019-04-16] MEDS: INSULIN ASPART (NovoLOG) 100 UNIT/ML VIAL SQ SCH ×4 (07:56→21:41)
[2019-04-16] MEDS: PANTOPRAZOLE 40 MG TABLET PO SCH (07:56)
[2019-04-16] MEDS: IPRATROPIUM-ALBUTEROL 3 ML NEB INHALATION SCH ×4 (08:04→20:47)
[2019-04-16] MEDS: SYMBICORT 80-4.5 MCG INHALER INHALATION SCH ×2 (08:05→20:47)
[2019-04-16 09:23] LABS: HCT 40.7 % (34.0-46.0); HGB 13.2 gm/dL (11.4-16.0); MCHC 32.5 g/dL (31.0-37.0); MCV 86.2 fL (80.0-100.0); RBC 4.72 m/uL (3.80-5.40); WBC 9.6 k/uL (3.8-10.6)
[2019-04-16 09:24] LABS: Anisocytosis Slight; Basophils # (A) 0.1 k/uL (0-0.2); Basophils % (A) 1 %; Eosinophils # (A) 0.1 k/uL (0-0.7); Eosinophils % (A) 1 %; Lymphocytes # (A) 1.2 k/uL (1.0-4.8); Lymphocytes % (A) 12 %; Monocytes # (A) 0.5 k/uL (0-1.0); Monocytes % (A) 6 %; Neutrophils # (A) 7.6 k/uL (1.3-7.7); Neutrophils % (A) 80 %; Platelet Count 339 k/uL (150-450); RDW 17.3 % (11.5-15.5)
[2019-04-16 12:07] LABS: Glucose,Whole Blood 241 mg/dL (75-99)
[2019-04-16 12:31] LABS: Calcium 8.9 mg/dL (8.4-10.2); Potassium 5.9 mmol/L (3.5-5.1)
--- NOTE | 2019-04-16 13:25 | P.PN ---
Subjective Progress Note Date: 04/16/19 Principal diagnosis: Exacerbation of chronic obstructive pulmonary disease This is a 59-year-old female patient with a history of hypertension, hypothyroidism, hyperlipidemia, chronic and ongoing tobacco dependence, COPD. She is on Breo, Ventolin HFA, DuoNeb inhalations. She had presented here to the emergency room today with complaints of increasing shortness of breath cough and congestion. She states she has been without her medications for at least 3 days now since she was kicked out of a long term. She states she did not have any primary care physician and her last medications were filled for a 6 month supply from physician in [place]. Chest x-ray shows mild bilateral lobe pulmonary infiltrates, left lower lobe nodule possible granuloma. Initial oxygen saturat ion 90% on room air. Influenza screen negative. White count 12.9. Hemoglobin 13.7. Creatinine 1.07. She's been initiated on DuoNeb inhalations, IV Solu- Medrol, Symbicort. She is on ceftriaxone and azithromycin. She is seen today in consultation on the regular medical floor. She is currently awake and alert in no acute distress. Breathing a bit easier tonight as compared to earlier this morning. Maintaining O2 saturations in the low 90s on 3 L/m per nasal cannula. She's afebrile. Hemodynamically stable. The patient is seen today 04/14/2019 in follow-up on the regular medical floor. She is awake and alert in no acute distress. She is breathing a bit easier today as compared to yesterday. Not quite back to her baseline. 18 O2 saturations in the 90s on room air. She's afebrile. Count 11.1. Hemoglobin 13.2. Creatinine 1.44. On 04/15/2019 the patient is slowly improving pH is less short of breath. Less bronchospastic and wheezy. She has no new complaints. She is worried about her discharge planning of the patient is homeless and she was living in a long term from which she was let go. Her white cell count of 12.8. She was treated with IV Solu Medrol and she was switched to prednisone burst taper starting with 40 mg. He is still on DuoNeb nebulized treatments around the clock. She is also on Rocephin and Zithromax. She did develop an acute kidney injury. On today's evaluation creatinine is up to 1.7 exact cause for this is not clear. I'm going to stop the ERLIN inhibitor. She did not receive any form of nephrotoxic medications. She'll be given IV fluids accordingly. We'll continue to follow. We'll monitor urine output. On 04/16/2019 patient seen in follow-up on medical surgical floor. Still quite bronchospastic, although she states during has been some improvement in her breathing. Yesterday patient's labs showed evidence of acute kidney injury, and was started on gentle hydration and her ERLIN inhibitor was placed on hold, follow-up labs today showed improvement in patient's renal profile, with BUN of 69 and creatinine down to 1.62. No fever or chills, vital signs are stable, hemodynamically stable, room air pulse ox is 91-92%. Objective - Vital Signs Vital signs: Vital Signs Temp 97.6 F 04/16/19 04:40 Pulse 77 04/16/19 11:39 Resp 20 04/16/19 04:40 BP 100/64 04/16/19 04:40 Pulse Ox 91 L 04/16/19 04:40 Intake & Output 04/15/19 04/16/19 04/16/19 18:59 06:59 18:59 Intake Total 520 650 Balance 520 650 Intake: IV 650 Sodium Chloride 0.9% 1, 600 000 ml @ 75 mls/hr IV . [id number] [facility] Rx#:[id number] cefTRIAXone 1 gm In 50 Sodium Chloride 0.9% 50 ml @ 100 mls/hr IVPB Q24HR [facility] Rx#:[id number] Oral 520 Other: # Voids 3 1 - Exam GENERAL EXAM: Alert, pleasant, 59-year-old obese white female comfortable in no apparent distress. HEAD: Normocephalic/atraumatic. EYES: Normal reaction of pupils, equal size. Conjunctiva pink, sclera white. NOSE: Clear with pink turbinates. THROAT: No erythema or exudates. NECK: No masses, no JVD, no thyroid enlargement, no adenopathy. CHEST: No chest wall deformity. Symmetrical expansion. LUNGS: Equal air entry with diffuse audible wheezing CVS: Regular rate and rhythm, normal S1 and S2, no gallops, no murmurs, no rubs ABDOMEN: Soft, nontender. No hepatosplenomegaly, normal bowel sounds, no guarding or rigidity. EXTREMITIES: No clubbing, no edema, no cyanosis, 2+ pulses and upper and lower extremities. MUSCULOSKELETAL: Muscle strength and tone normal. SPINE: No scoliosis or deformity SKIN: No rashes CENTRAL NERVOUS SYSTEM: Alert and oriented -3. No focal deficits, tone is normal in all 4 extremities. PSYCHIATRIC: Alert and oriented -3. Appropriate affect. Intact judgment and insight. - Labs CBC & Chem 7: 04/16/19 08:08 04/16/19 11:24 Labs: Abnormal Lab Results - Last 24 Hours (Table) 04/15/19 04/15/19 04/16/19 Range/Units 17:16 20:22 07:08 RDW (11.5-15.5) % Sodium (137-145) mmol/L Potassium (3.5-5.1) mmol/L Carbon Dioxide (22-30) mmol/L BUN (7-17) mg/dL Creatinine (0.52-1.04) mg/dL Glucose (74-99) mg/dL POC Glucose (mg/dL) 172 H 230 H 221 H (75-99) mg/dL 04/16/19 04/16/19 04/16/19 Range/Units 08:08 11:24 12:05 RDW 17.3 H (11.5-15.5) % Sodium 134 L (137-145) mmol/L Potassium 5.9 H (3.5-5.1) mmol/L Carbon Dioxide 18 L (22-30) mmol/L BUN 69 H (7-17) mg/dL Creatinine 1.62 H (0.52-1.04) mg/dL Glucose 231 H (74-99) mg/dL POC Glucose (mg/dL) 241 H (75-99) mg/dL Assessment and Plan Plan: #1 Acute hypoxic respiratory failure secondary to an acute exacerbation of chronic obstructive pulmonary disease secondary to lack of outpatient medication. The patient is a chronic smoker. The patient was Hospital as for an acute COPD exacerbation pH is gradually improving. She is less short of breath on today's evaluation. She is on a prednisone burst taper. She is also on Rocephin and Zithromax. #2 Chronic and ongoing tobacco dependence. #3 Hypothyroidism. #4 Hypertension. #5 Hyperlipidemia. #6 Hypothyroidism. #7 acute kidney injury, the exact cause is not clear. The creatinine is up and the patient is nonoliguric. Rule out ATN. No intake of any nephrotoxic agents. Plan: Continue with IV hydration, follow-up BMP tomorrow, continue Rocephin and Zithromax, nebulized bronchodilators. Continue Symbicort, steroids. Still dyspneic and bronchospastic, quite back to baseline I performed a history & physical examination of the patient and discussed their management with my nurse practitioner, Quyen Hunt. I reviewed the nurse practitioner's note and agree with the documented findings and plan of care. Lung sounds are positive for diffuse wheezes throughout the lung cota. The f indings and the impression was discussed with the patient. I attest to the documentation by the nurse practitioner. Time with Patient: Less than 30
[2019-04-16] MEDS ORDERED: DEXTROSE 50% SYRINGE 50 ML IVP STA (16:50)
[2019-04-16] MEDS ORDERED: SODIUM BICARB 8.4% 50 ML SYR (1 MEQ/ML) IV STA (16:51)
[2019-04-16] MEDS ORDERED: INSULIN REGULAR 100 UNIT/ML VIAL IV ONE (16:51)
[2019-04-16] MEDS ORDERED: SODIUM POLYSTYRENE SULFONATE 15 GM/60 ML BOTTLE PO STA (16:53)
[2019-04-16] MEDS ORDERED: DEXTROSE 10 % IN WATER 250 ML IV ONE (16:56)
[2019-04-16 17:19] LABS: Glucose,Whole Blood 286 mg/dL (75-99)
[2019-04-16] MEDS ORDERED: CALCIUM GLUCONATE 1 GM in SODIUM CHLORIDE 0.9% 100 ML IVPB ONE (17:30)
--- NOTE | 2019-04-16 20:07 | PN ---
PROGRESS NOTE DATE OF SERVICE: 04/16/2019. This 59-year-old woman who was admitted with COPD, acute exacerbation, with acute bilateral pneumonia, right more than left, possibly gram-negative, is being closely monitored. No chest pain. No palpitations. No fever. REVIEW OF SYSTEMS: CARDIOVASCULAR SYSTEM: No angina, palpitations. RESPIRATORY SYSTEM: As mentioned earlier. GI: As mentioned earlier. : No dysuria or retention. NERVOUS SYSTEM: No numbness, weakness. MEDICATIONS: Current medications are reviewed and include: 1. Tylenol 500 q.6 p.r.n. 2. [place] 5 mg. 3. DuoNeb q.i.d. and p.r.n. 4. Xanax. 5. Norvasc. 6. Lipitor. 7. Zithromax. 8. Symbicort. 9. Rocephin. 10.Cardizem CD. 11.Heparin. 12.NovoLog. 13.Multivitamins. 14.Habitrol. 15.Zofran. 16.Protonix. 17.Prednisone. 18.Saline drops. Doses are reviewed. PHYSICAL EXAMINATION: On exam, alert and oriented x3. Pulse is 69, blood pressure 114/65, respiration 18, temperature 97.7, pulse ox 94% on room air. HEENT: Conjunctivae normal. NECK: No jugular venous distention. CARDIOVASCULAR SYSTEM: S1, S2 muffled. RESPIRATORY SYSTEM: Breath sounds diminished at the bases. A few scattered rhonchi and crackles. ABDOMEN: Soft, non-tender. LEGS: No edema. No swelling. NERVOUS SYSTEM: No focal deficit. LABS: CBC within normal limits. Sodium 134, potassium 5.9, creatinine 1.62. ASSESSMENT: 1. Chronic obstructive pulmonary disease, acute exacerbation, with acute bilateral pneumonia, right more than left, possibly gram-negative. 2. Diabetes mellitus, type 2, with hyperglycemia. 3. Increased creatinine with possible acute renal failure with possible acute tubular necrosis and prerenal factors. 4. Hyperkalemia. 5. Hyponatremia. 6. Increased white count. 7. Chronic obstructive pulmonary disease. 8. Hypertension. 9. Hypothyroidism. 10.History of hernia. 11.History of degenerative joint disease. 12.History of nicotine dependence, continued and ongoing. 13.Obesity with body mass index of 44.7. 14.Homelessness. RECOMMENDATIONS AND DISCUSSION: I recommend to continue current medications, continue with the monitoring, symptomatic treatment. Otherwise at this time I would recommend Kayexalate. I would also recommend a nephrology consultation. Continue to monitor. Guarded prognosis because of multiple complex medical problems. Will also recommend insulin/glucose regimen. See orders for further details. MMODL / IJN: [id number] /
[2019-04-16 20:42] LABS: Glucose,Whole Blood 337 mg/dL (75-99)
[2019-04-17] MEDS: HYDROcodone/APAP 5-325MG 1 EACH TAB PO PRN ×2 (04:58→12:51)
[2019-04-17] MEDS: LEVOTHYROXINE 100 MCG TAB PO SCH (06:00)
[2019-04-17] MEDS: SODIUM CHLORIDE 0.9% 1,000 ML IV SCH ×2 (06:01→19:14)
[2019-04-17 07:01] LABS: Glucose,Whole Blood 150 mg/dL (75-99)
[2019-04-17] MEDS: SYMBICORT 80-4.5 MCG INHALER INHALATION SCH ×2 (07:19→19:19)
[2019-04-17] MEDS: IPRATROPIUM-ALBUTEROL 3 ML NEB INHALATION SCH ×4 (07:19→19:19)
[2019-04-17] MEDS: INSULIN ASPART (NovoLOG) 100 UNIT/ML VIAL SQ SCH ×4 (08:17→20:43)
[2019-04-17] MEDS: AZITHROMYCIN 500 MG TAB PO SCH (08:18)
[2019-04-17] MEDS: NICOTINE 14MG/24HR PATCH TRANSDERM SCH (08:18)
[2019-04-17] MEDS: ATORVASTATIN 20 MG TAB PO SCH (08:18)
[2019-04-17] MEDS: PANTOPRAZOLE 40 MG TABLET PO SCH (08:18)
[2019-04-17] MEDS: predniSONE 20 MG TAB PO SCH (08:18)
[2019-04-17] MEDS: HEPARIN SODIUM,PORCINE 5,000 UNIT/ML 1 ML VIAL SQ SCH ×2 (08:18→20:43)
[2019-04-17] MEDS: amLODIPine 5 MG TAB PO SCH (08:18)
[2019-04-17] MEDS: DILTIAZEM CD 180 MG CAP.ER.24H PO SCH (08:19)
--- NOTE | 2019-04-17 12:06 | P.PN ---
Subjective Progress Note Date: 04/17/19 Principal diagnosis: Acute exacerbation of chronic obstructive pulmonary disease. This is a 59-year-old female patient with a history of hypertension, hypothyroidism, hyperlipidemia, chronic and ongoing tobacco dependence, COPD. She is on Breo, Ventolin HFA, DuoNeb inhalations. She had presented here to the emergency room today with complaints of increasing shortness of breath cough and congestion. She states she has been without her medications for at least 3 days now since she was kicked out of a prison. She states she did not have any primary care physician and her last medications were filled for a 6 month supply from physician in [place]. Chest x-ray shows mild bilateral lobe pulmonary infiltrates, left lower lobe nodule possible granuloma. Initial oxygen saturation 90% on room air. Influenza screen negative. White count 12.9. Hemoglobin 13.7. Creatinine 1.07. She's been initiated on DuoNeb inhalations, IV Solu-Medrol, Symbicort. She is on ceftriaxone and azithromycin. She is seen today in consultation on the regular medical floor. She is currently awake and alert in no acute distress. Breathing a bit easier tonight as compared to earlier this morning. Maintaining O2 saturations in the low 90s on 3 L/m per nasal cannula. She's afebrile. Hemodynamically stable. Patient is seen today 04/17/2019 in follow-up on the regular medical floor. She is up ambulating in the room. Awake and alert in no acute distress. Less bronchospastic and wheezy. She is maintaining O2 saturations in the 90s on room air. She's been afebrile. Hemodynamically stable. Blood glucose 150. She had been transitioned to oral prednisone. Remains on DuoNeb inhalations, Symbicort, azithromycin. Objective - Vital Signs Vital signs: Vital Signs Temp 97.5 F L 04/17/19 04:55 Pulse 76 04/17/19 07:30 Resp 16 04/17/19 08:00 BP 154/53 04/17/19 04:55 Pulse Ox 94 L 04/17/19 07:21 Intake & Output 04/16/19 04/17/19 04/17/19 18:59 06:59 18:59 Intake Total 650 Balance 650 Intake: IV 650 Sodium Chloride 0.9% 1, 600 000 ml @ 75 mls/hr IV . [id number] [facility] Rx#:[id number] cefTRIAXone 1 gm In 50 Sodium Chloride 0.9% 50 ml @ 100 mls/hr IVPB Q24HR [facility] Rx#:[id number] Other: Voiding Method Toilet Toilet # Voids 3 - Exam GENERAL EXAM: Alert, pleasant 59-year-old female, comfortable in no apparent distress. On room air. HEAD: Normocephalic. EYES: Normal reaction of pupils, equal size. NOSE: Clear with pink turbinates. THROAT: No erythema or exudates. NECK: No masses, no JVD. CHEST: No chest wall deformity. LUNGS: Equal air entry with end expiratory wheeze, diminished. CVS: S1 and S2 normal with no audible murmur, regular rhythm. ABDOMEN: No hepatosplenomegaly, normal bowel sounds, no guarding or rigidity. SPINE: No scoliosis or deformity SKIN: No rashes CENTRAL NERVOUS SYSTEM: No focal deficits, tone is normal in all 4 extremities. EXTREMITIES: There is no peripheral edema. No clubbing, no cyanosis. Peripheral pulses are intact. - Labs CBC & Chem 7: 04/16/19 08:08 04/16/19 11:24 Labs: Abnormal Lab Results - Last 24 Hours (Table) 04/16/19 04/16/19 04/16/19 Range/Units 11:24 12:05 17:10 Sodium 134 L (137-145) mmol/L Potassium 5.9 H (3.5-5.1) mmol/L Carbon Dioxide 18 L (22-30) mmol/L BUN 69 H (7-17) mg/dL Creatinine 1.62 H (0.52-1.04) mg/dL Glucose 231 H (74-99) mg/dL POC Glucose (mg/dL) 241 H 286 H (75-99) mg/dL 04/16/19 04/17/19 Range/Units 20:41 06:58 Sodium (137-145) mmol/L Potassium (3.5-5.1) mmol/L Carbon Dioxide (22-30) mmol/L BUN (7-17) mg/dL Creatinine (0.52-1.04) mg/dL Glucose (74-99) mg/dL POC Glucose (mg/dL) 337 H 150 H (75-99) mg/dL Assessment and Plan Assessment: Impression: #1 Acute hypoxic respiratory failure secondary to an acute exacerbation of chronic obstructive pulmonary disease secondary to lack of outpatient medication. #2 Chronic and ongoing tobacco dependence. #3 Hypothyroidism. #4 Hypertension. #5 Hyperlipidemia. #6 Hypothyroidism. Plan: The patient was seen and evaluated by Dr. Guan She is cleared for discharge from the pulmonary standpoint. information services vice president for discharge planning as the patient is currently homeless. I, the cosigning physician, performed a history & physical examination of the patient. Lungs sounds with end expiratory wheeze. Maintaining good O2 saturations in the 90s on room air. I discussed the assessment and plan of care with my nurse practitioner, Esme Smith. I attest to the above note as dictated by her.
[2019-04-17 12:27] LABS: Glucose,Whole Blood 174 mg/dL (75-99)
[2019-04-17 12:41] LABS: Calcium 9.5 mg/dL (8.4-10.2); Potassium 5.9 mmol/L (3.5-5.1)
[2019-04-17] MEDS: MULTIVITAMINS, THERA 1 EACH TAB PO SCH (12:48)
[2019-04-17] MEDS ORDERED: FUROSEMIDE 10 MG/ML 4 ML VIAL IV STA (15:03)
[2019-04-17 16:49] LABS: Glucose,Whole Blood 219 mg/dL (75-99)
--- NOTE | 2019-04-17 20:40 | CONS ---
CONSULTATION REASON FOR CONSULT: Renal failure. HISTORY OF PRESENT ILLNESS: Patient is a 59-year-old female who was initially admitted to the hospital on 04/12/2019 with complaints of shortness of breath. Patient has underlying history of COPD. She was also started on treatment for pneumonia. Patient's serum creatinine on initial admission was 1.0. It did increase to 1.7 mg/dL yesterday and it is down to 1.28 today. Patient has been voiding. She is currently not hypotensive. She is maintained on IV fluids. Serum potassium has been elevated at 5.9 mEq/L for the last 3 days. Patient has received Kayexalate and IV insulin and dextrose. Currently patient is not on any ERLIN inhibitors. She is incontinent and apparently has been voiding. PAST MEDICAL HISTORY: Past medical history is significant for: 1. Obesity. 2. Hypertension. 3. COPD. 4. Hypothyroidism. 5. Type 2 diabetes. PAST SURGICAL HISTORY: Hernia repair. SOCIAL HISTORY: Patient is a smoker. No history of drug abuse or alcohol abuse. MEDICATIONS: Medications at home prior to admission included: 1. Lipitor. 2. Cardizem. 3. Breathing treatments. 4. Synthroid. 5. Lisinopril. 6. Omeprazole. 7. Norvasc. 8. Glucophage. ALLERGIES: ALLERGIES include NSAIDS. REVIEW OF SYSTEMS: As per HPI. Other systems negative. PHYSICAL EXAMINATION: Patient is comfortable, awake, alert, oriented x3. She is not in any acute distress. Blood pressure was 154/53, heart rate 74 per minute. Patient is afebrile. EXAMINATION OF THE HEART: S1 and S2. EXAMINATION OF LUNGS: Bilateral breath sounds are heard. ABDOMEN: Soft, non-tender. Examination of lower extremities shows chronic skin changes. No edema is noted. 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 LABS: Sodium 138, potassium 5.9, chloride 110. CO2 is 20, BUN 58, serum creatinine 1.28. ASSESSMENT: 1. Acute kidney injury, nonoliguric, currently improved. Etiology is likely hypoperfusion. Blood pressure had been slightly on the lower side at 107 and 102 mmHg about 3-4 days ago and patient was maintained on high-dose ERLIN inhibitors. She is currently off of lisinopril and renal function has improved. Continue with the IV fluids for one more day. 2. Hyperkalemia associated with acute kidney injury. Serum potassium remains elevated. Patient will be maintained on low-potassium diet. Control the blood sugars. I will give her a dose of IV Lasix today as well. Check bladder scan. Rule out urine retention as a cause of hyperkalemia as well. Check CBC, although I doubt any underlying GI bleed. 3. Chronic obstructive pulmonary disease exacerbation, currently improved. 4. Hypothyroidism. 5. Type 2 diabetes. PLAN: Continue IV fluids. Lasix IV x1. Maintain patient on low-potassium diet. Repeat labs in a.m. Thank you for this consultation. Will continue to follow the patient with you during her hospitalization. MMODL / IJN: [id number] /
[2019-04-17 20:57] LABS: Glucose,Whole Blood 220 mg/dL (75-99)
[2019-04-17 22:33] VITALS: RESP 18
--- NOTE | 2019-04-17 23:52 | PN ---
PROGRESS NOTE DATE OF SERVICE: 04/17/2019. This 59-year-old woman who was admitted with COPD, acute exacerbation, and acute bilateral pneumonia is being closely monitored. No chest pain. No palpitations. No fever. The patient is apparently homeless, also. The patient had some issues with the intermediate from where the patient was kicked out apparently. No chest pain. No palpitations. No fever. On exam, alert and oriented x3. Pulse is 77, blood pressure 130/67, respiration 18, temperature 98.5, pulse ox 93% on room air. HEENT: Conjunctivae normal. NECK: No jugular venous distention. CARDIOVASCULAR SYSTEM: S1, S2 muffled. RESPIRATORY SYSTEM: Breath sounds diminished at the bases. A few scattered rhonchi and crackles. ABDOMEN: Soft, non-tender. LEGS: No edema. No swelling. NERVOUS SYSTEM: No focal deficit. LABS: Sodium 138, potassium 5.9. Creatinine is 1.28. ASSESSMENT: 1. Chronic obstructive pulmonary disease, acute exacerbation, with acute bilateral pneumonia, right more than left; possibly gram-negative. 2. Diabetes mellitus, type 2, with hyperglycemia. 3. Increased creatinine with possible acute renal failure with acute tubular necrosis and prerenal factors. 4. Hyperkalemia. 5. Hyponatremia. 6. Increased white count. 7. Chronic obstructive pulmonary disease. 8. Hypertension. 9. Hypothyroidism. 10.History of angina. 11.History of degenerative joint disease. 12.History of nicotine dependence, continued and ongoing. 13.History of obesity with body mass index of 44.7. 14.Homelessness. RECOMMENDATIONS AND DISCUSSION: I recommend to continue current medications, continue with the monitoring, symptomatic treatment. Continue steroids. Continue with antibiotics. Continue with the rest of the medications. Monitor closely with Nephrology. Guarded prognosis because of multiple complex medical issues. Further recommendations to follow. MMODL / IJN: [id number] /
[2019-04-18] MEDS: LEVOTHYROXINE 100 MCG TAB PO SCH (05:34)
[2019-04-18] MEDS: HYDROcodone/APAP 5-325MG 1 EACH TAB PO PRN (05:43)
[2019-04-18 06:21] VITALS: BP 137/73; TEMP 97.5
[2019-04-18 06:59] LABS: Glucose,Whole Blood 126 mg/dL (75-99)
[2019-04-18] MEDS: INSULIN ASPART (NovoLOG) 100 UNIT/ML VIAL SQ SCH ×2 (07:11→11:54)
[2019-04-18] MEDS: IPRATROPIUM-ALBUTEROL 3 ML NEB INHALATION SCH ×2 (07:17→11:03)
[2019-04-18] MEDS: SYMBICORT 80-4.5 MCG INHALER INHALATION SCH (07:17)
[2019-04-18 07:27] VITALS: PULSE 80
[2019-04-18 08:05] LABS: Anisocytosis Slight; Basophils # (A) 0.2 k/uL (0-0.2); Basophils % (A) 2 %; Eosinophils # (A) 0.1 k/uL (0-0.7); Eosinophils % (A) 1 %; HCT 41.9 % (34.0-46.0); HGB 13.1 gm/dL (11.4-16.0); Lymphocytes # (A) 4.3 k/uL (1.0-4.8); Lymphocytes % (A) 37 %; MCH 26.7 pg (25.0-35.0); MCHC 31.2 g/dL (31.0-37.0); MCV 85.6 fL (80.0-100.0); Mean Platelet Volume 7.7; Monocytes # (A) 0.7 k/uL (0-1.0); Monocytes % (A) 6 %; Neutrophils # (A) 6.3 k/uL (1.3-7.7); Neutrophils % (A) 53 %; Platelet Count 322 k/uL (150-450); RDW 16.1 % (11.5-15.5); WBC 11.8 k/uL (3.8-10.6)
[2019-04-18 08:24] LABS: Potassium 5.4 mmol/L (3.5-5.1)
[2019-04-18] MEDS: AZITHROMYCIN 500 MG TAB PO SCH (08:49)
[2019-04-18] MEDS: amLODIPine 5 MG TAB PO SCH (08:49)
[2019-04-18] MEDS: ATORVASTATIN 20 MG TAB PO SCH (08:49)
[2019-04-18] MEDS: predniSONE 20 MG TAB PO SCH (08:49)
[2019-04-18] MEDS: HEPARIN SODIUM,PORCINE 5,000 UNIT/ML 1 ML VIAL SQ SCH (08:49)
[2019-04-18] MEDS: NICOTINE 14MG/24HR PATCH TRANSDERM SCH (08:49)
[2019-04-18] MEDS: PANTOPRAZOLE 40 MG TABLET PO SCH (08:49)
[2019-04-18] MEDS: SODIUM CHLORIDE 0.9% 1,000 ML IV SCH (08:50)
[2019-04-18] MEDS: DILTIAZEM CD 180 MG CAP.ER.24H PO SCH (08:50)
[2019-04-18] MEDS: MULTIVITAMINS, THERA 1 EACH TAB PO SCH (11:52)
[2019-04-18 12:15] LABS: Glucose,Whole Blood 172 mg/dL (75-99)
--- NOTE | 2019-04-18 13:19 | DS ---
DISCHARGE SUMMARY DATE OF SERVICE: 04/18/2019 FINAL DIAGNOSES: 1. Chronic obstructive pulmonary disease acute exacerbation with acute bilateral pneumonia, right more than the left with possibly gram-negative. 2. Diabetes mellitus type 2 with hyperglycemia. 3. Increased creatinine with possible acute renal failure with acute tubular necrosis and prerenal factors. 4. Hyperkalemia. 5. Hyponatremia. 6. Increased WBC. 7. Chronic obstructive pulmonary disease. 8. Hypertension. 9. Hypothyroidism. 10.History of angina. 11.History of degenerative joint disease. 12.History of nicotine dependence, continued ongoing. 13.Obesity with body mass index 44.7. 14.Homelessness. DISCHARGE DISPOSITION: The patient will be discharged in stable condition with guarded prognosis. HISTORY OF PRESENT ILLNESS: This 59-year-old woman with a past medical history of multiple medical problems admitted with COPD acute exacerbation. Patient also had pneumonia treated with antibiotics, bronchodilators, steroids. Dr. Guan saw the patient. Social Work/Case Management is working towards the home situation. Please refer to their notes for further details. On exam, vitals are stable. CARDIOVASCULAR: S1, S2 muffled. RESPIRATORY: A few rhonchi. ABDOMEN: Soft. NERVOUS SYSTEM: No focal deficits. DISCHARGE ADVICE: 1. Diet is cardiac. 2. Activity limited until followup. 3. Follow up with Dr. Hiral Negrete in 2 to 3 days. 4. Follow up with Dr. Esme Smith as recommended. Her medications will be: 1. Breo Ellipta 1 puff daily. 2. Cardizem CD 360 daily. 3. DuoNeb q.i.d. and p.r.n. 4. Glucophage 1000 mg b.i.d. 5. Levothyroxine 200 mcg p.o. daily. 6. Lipitor 20 mg p.o. daily. 7. Lisinopril 40 mg p.o. b.i.d. 8. Norvasc 5 mg p.o. daily. 9. Omeprazole 20 mg p.o. daily. 10.Ventolin p.r.n. 11.Prednisone 40 mg daily for 3 days, 30 for 3 days, 20 for 3 days and 10 for 3 days. 12.Zithromax 500 mg daily for 5 days. Once again the patient will be discharged in stable condition with guarded prognosis. MMODL / IJN: [id number] /
--- NOTE | 2019-04-18 13:53 | P.PN ---
Subjective Progress Note Date: 04/18/19 Principal diagnosis: Acute exacerbation of chronic obstructive pulmonary disease. This is a 59-year-old female patient with a history of hypertension, hypothyroidism, hyperlipidemia, chronic and ongoing tobacco dependence, COPD. She is on Breo, Ventolin HFA, DuoNeb inhalations. She had presented here to the emergency room today with complaints of increasing shortness of breath cough and congestion. She states she has been without her medications for at least 3 days now since she was kicked out of a detention. She states she did not have any primary care physician and her last medications were filled for a 6 month supply from physician in [place]. Chest x-ray shows mild bilateral lobe pulmonary infiltrates, left lower lobe nodule possible granuloma. Initial oxygen saturation 90% on room air. Influenza screen negative. White count 12.9. Hemoglobin 13.7. Creatinine 1.07. She's been initiated on DuoNeb inhalations, IV Solu-Medrol, Symbicort. She is on ceftriaxone and azithromycin. She is seen today in consultation on the regular medical floor. She is currently awake and alert in no acute distress. Breathing a bit easier tonight as compared to earlier this morning. Maintaining O2 saturations in the low 90s on 3 L/m per nasal cannula. She's afebrile. Hemodynamically stable. Patient is seen today 04/17/2019 in follow-up on the regular medical floor. She is up ambulating in the room. Awake and alert in no acute distress. Less bronchospastic and wheezy. She is maintaining O2 saturations in the 90s on room air. She's been afebrile. Hemodynamically stable. Blood glucose 150. She had been transitioned to oral prednisone. Remains on DuoNeb inhalations, Symbicort, azithromycin. The patient is seen today 04/18/2019 in follow-up on the regular medical floor. She is awake and alert in no acute distress. Feeling back to her baseline. No worsening shortness of breath, cough or congestion. She is anxious to be discharged. Objective - Vital Signs Vital signs: Vital Signs Temp 97.5 F L 04/18/19 05:00 Pulse 80 04/18/19 07:26 Resp 18 04/18/19 05:00 BP 137/73 04/18/19 05:00 Pulse Ox 95 04/18/19 05:00 Intake & Output 04/17/19 04/18/19 04/18/19 18:59 06:59 18:59 Intake Total 900 Balance 900 Intake: Oral 900 Other: Voiding Method Toilet Toilet # Voids 3 2 - Exam GENERAL EXAM: Alert, pleasant 59-year-old female, comfortable in no apparent distress. On room air. HEAD: Normocephalic. EYES: Normal reaction of pupils, equal size. NOSE: Clear with pink turbinates. THROAT: No erythema or exudates. NECK: No masses, no JVD. CHEST: No chest wall deformity. LUNGS: Equal air entry with end expiratory wheeze, diminished. CVS: S1 and S2 normal with no audible murmur, regular rhythm. ABDOMEN: No hepatosplenomegaly, normal bowel sounds, no guarding or rigidity. SPINE: No scoliosis or deformity SKIN: No rashes CENTRAL NERVOUS SYSTEM: No focal deficits, tone is normal in all 4 extremities. EXTREMITIES: There is no peripheral edema. No clubbing, no cyanosis. Peripheral pulses are intact. - Labs CBC & Chem 7: 04/18/19 07:14 04/18/19 07:14 Labs: Abnormal Lab Results - Last 24 Hours (Table) 04/17/19 04/17/19 04/18/19 Range/Units 16:35 20:22 06:47 WBC (3.8-10.6) k/uL RDW (11.5-15.5) % Potassium (3.5-5.1) mmol/L BUN (7-17) mg/dL Creatinine (0.52-1.04) mg/dL Glucose (74-99) mg/dL POC Glucose (mg/dL) 219 H 220 H 126 H (75-99) mg/dL 04/18/19 04/18/19 04/18/19 Range/Units 07:14 07:14 11:52 WBC 11.8 H (3.8-10.6) k/uL RDW 16.1 H (11.5-15.5) % Potassium 5.4 H (3.5-5.1) mmol/L BUN 55 H (7-17) mg/dL Creatinine 1.24 H (0.52-1.04) mg/dL Glucose 110 H (74-99) mg/dL POC Glucose (mg/dL) 172 H (75-99) mg/dL Assessment and Plan Assessment: Impression: #1 Acute hypoxic respiratory failure secondary to an acute exacerbation of chronic obstructive pulmonary disease secondary to lack of outpatient medication. #2 Chronic and ongoing tobacco dependence. #3 Hypothyroidism. #4 Hypertension. #5 Hyperlipidemia. #6 Hypothyroidism. Plan: The patient was seen and evaluated by Dr. Guan She is cleared for discharge from the pulmonary standpoint. the plan is return to the detention where she was last stained. She'll continue with bronchodilators, prednisone burst and taper, complete course of antibiotics. She'll follow-up in our office in 1-2 weeks' time. She is encouraged to call sooner with any recurrence of symptoms or other questions or concerns. I, the cosigning physician, performed a history & physical examination of the patient. Lungs sounds with end expiratory wheeze. Maintaining good O2 saturations in the 90s on room air. I discussed the assessment and plan of care with my nurse practitioner, Esme Smith. I attest to the above note as dictated by her.
--- NOTE | 2019-04-18 16:58 | PN ---
PROGRESS NOTE Patient is seen for followup for acute kidney injury. The patient was also hyperkalemic. She received a dose of IV Lasix yesterday. Serum potassium is slightly improved. The patient denies any significant complaints today. On examination, blood pressure 137/73, heart rate 78 per minute. Patient is afebrile. EXAMINATION OF THE HEART: S1 and S2. EXAMINATION OF LUNGS: Bilateral breath sounds are heard. ABDOMEN: Soft, non-tender, obese. Examination of lower extremities shows chronic skin changes. Trace edema is noted. 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 Labs show sodium 137, potassium 5.4, BUN 55, serum creatinine 1.24, hemoglobin 13.1 g/dL. ASSESSMENT: 1. Hyperkalemia associated with acute kidney injury, currently improved. Maintain patient on loop diuretics. 2. Acute kidney injury secondary to hypotension, hypoperfusion, currently improved. Patient is off of ERLIN inhibitors. 3. Hypertension, also controlled. PLAN: Maintain patient on loop diuretics and low-potassium diet. She can be discharged with plans to repeat labs as outpatient. MMODL / IJN: [id number] /
== END 2019-04-18 13:23 | disposition home or self-care (01) | DRG 177 ==
LOC: EC 18:43 → 4MS4W 21:21 → UNDOADMIN 21:21 → INTOOBSV 21:21 → OBSVTOIN 04-16 09:32
PROVIDERS: ADMIT Hospitalist; ATTEND Hospitalist
DX: J15.6 Pneumonia due to other Gram-negative bacteria (principal); N17.0 Acute kidney failure with tubular necrosis; J96.01 Acute respiratory failure with hypoxia; J44.1 Chronic obstructive pulmonary disease with (acute) exacerbation; Z68.41 Body mass index [BMI] 40.0-44.9, adult; E87.1 Hypo-osmolality and hyponatremia; J44.0 Chronic obstructive pulmonary disease with (acute) lower respiratory infection; F17.200 Nicotine dependence, unspecified, uncomplicated; E87.5 Hyperkalemia; E66.9 Obesity, unspecified; I10 Essential (primary) hypertension; E03.9 Hypothyroidism, unspecified; E11.65 Type 2 diabetes mellitus with hyperglycemia; E78.5 Hyperlipidemia, unspecified; F03.90 Unspecified dementia, unspecified severity, without behavioral disturbance, psychotic disturbance, mood disturbance, and anxiety; M19.90 Unspecified osteoarthritis, unspecified site; F17.210 Nicotine dependence, cigarettes, uncomplicated; Z59.0 Homelessness; Z79.899 Other long term (current) drug therapy; Z79.890 Hormone replacement therapy; Z79.84 Long term (current) use of oral hypoglycemic drugs; Z79.51 Long term (current) use of inhaled steroids; Z88.6 Allergy status to analgesic agent
CPT/HCPCS: 36415; 71045; 71046; 76770; 80048; 83036; 85025; 87502; 93005; 94640; 94760; 99285

== ENCOUNTER 2019-04-19 13:37 | Inpatient (IN) | payer MEDICARE, MEDICAID ==
--- NOTE | 2019-04-19 14:41 | ED ---
General Adult HPI - General Chief complaint: Psychiatric Symptoms Stated complaint: mental health Time Seen by Provider: 04/19/19 13:45 Source: patient, RN notes reviewed, old records reviewed Mode of arrival: ambulatory Limitations: no limitations - History of Present Illness Initial comments: 59-year-old female patient presents to ED chief complaint depression. Patient reports that she was recently living at home a senior living, however she states that they gave away her spot making her very depressed that she is homeless. She reports that she does not wish to be live anymore. Patient denies any plan to kill herself or others, denies any actions herself or any other people. Patient denies any other complaints at this time. Systemic: Pt denies fatigue, fever/chills, rash. Pt denies weakness, night sweats, weight loss. Neuro: Pt denies headache, visual disturbances, syncope or pre-syncope. HEENT: Pt denies ocular discharge or irritation, otalgia, rhinorrhea, pharyngitis or notable lymphadenopathy. Cardiopulmonary: Pt denies chest pain, SOB, heart palpitations, dyspnea on exertion. Abdominal/GI: Pt denies abdominal pain, n/v/d. : Pt denies dysuria, burning w/ urination, frequency/urgency. Denies new onset urinary or bowel incontinence. MSK: Pt denies myalgia, loss of strength or function in extremities. Neuro: Pt denies new onset weakness, paresthesias. - Related Data Home Medications Medication Instructions Recorded Confirmed Albuterol Inhaler [Ventolin Hfa 2 puff INHALATION RT-Q6H PRN 04/12/19 04/19/19 Inhaler] Atorvastatin [Lipitor] 20 mg PO DAILY 04/12/19 04/19/19 Diltiazem HCl [Cardizem CD] 360 mg PO DAILY 04/12/19 04/19/19 Fluticasone/Vilanterol [Breo 1 puff INHALATION RT-DAILY 04/12/19 04/19/19 Ellipta 100-25 Mcg Inhaler] Ipratropium-Albuterol Nebulize 3 ml INHALATION RT-QID 04/12/19 04/19/19 [Duoneb 0.5 mg-3 mg/3 ml Soln] Levothyroxine Sodium 200 mcg PO DAILY 04/12/19 04/19/19 Lisinopril 40 mg PO BID 04/12/19 04/19/19 Omeprazole 20 mg PO DAILY 04/12/19 04/19/19 amLODIPine [Norvasc] 5 mg PO DAILY 04/12/19 04/19/19 metFORMIN HCL [Glucophage] 1,000 mg PO BID 04/12/19 04/19/19 Allergies Allergy/AdvReac Type Severity Reaction Status Date / Time NSAIDS (Non-Steroidal AdvReac ULCERS Verified 04/19/19 16:44 Anti-Inflamma Review of Systems ROS Statement: Those systems with pertinent positive or pertinent negative responses have been documented in the HPI. ROS Other: All systems not noted in ROS Statement are negative. Past Medical History Past Medical History: COPD, Diabetes Mellitus, Hypertension, Thyroid Disorder Additional Past Medical History / Comment(s): Hernia History of Any Multi-Drug Resistant Organisms: None Reported Past Surgical History: Orthopedic Surgery Past Psychological History: No Psychological Hx Reported Smoking Status: Current every day smoker Past Alcohol Use History: None Reported Past Drug Use History: None Reported General Exam - General Exam Comments Initial Comments: Constitutional: NAD, AOX3, Pt has pleasant affect. HEENT: NC/AT, trachea midline, neck supple, no lymphadenopathy. Posterior pharynx non erythematous, without exudates. External ears appear normal, without discharge. Mucous membranes moist. Eyes PERRLA, EOM intact. There is no scleral icterus. No pallor noted. Cardiopulmonary: RRR, no murmurs, rubs or gallops, no JVD noted. Lungs CTAB in anterior and posterior cota. No peripheral edema. Abdominal exam: Abdomen soft and non-distended. Abdomen non-tender to palpation in all 4 quadrants. Bowel sounds active in LLQ. No hepatosplenomegaly. No ecchymosis Neuro: CN II-XII grossly intact. No nuchal rigidity. No raccon eyes, no whitfield sign, no hemotympanum. No cervical spinal tenderness. MSK: No posterior calf tenderness bilaterally, homans sign negative bilaterally. Posterior tibialis and radial pulse +2 bilaterally. Sensation intact in upper and lower extremities. Full active ROM in upper and lower extremities, 5/5 stregnth. Limitations: no limitations Course Vital Signs 04/19/19 04/19/19 04/19/19 13:40 15:14 17:50 Temperature 97.4 F L 98.2 F Pulse Rate 118 H 86 81 Respiratory 24 18 18 Rate Blood Pressure 189/84 151/91 137/77 O2 Sat by Pulse 97 94 L 92 L Oximetry Medical Decision Making - Medical Decision Making 59-year-old male patient presents ED for psychiatric complaints. Patient does report depression and some suicidal ideation. Patient is a exam did not display acute pathology. Patient evaluated for EPS recommended admission for further evaluation. Case discussed with Dr. Shin. Disposition Clinical Impression: Psychiatric disturbance Disposition: ADMITTED IP TO THIS HOSP Condition: Serious Is patient prescribed a controlled substance at d/c from ED?: No
[2019-04-19] MEDS ORDERED: NICOTINE 21MG/24HR PATCH TRANSDERM STA (16:32)
[2019-04-19 18:31] LABS: Glucose,Whole Blood 143 mg/dL (75-99)
[2019-04-19 18:56] VITALS: BMI 44.8
[2019-04-19] MEDS ORDERED: MAG HYDROX/AL HYDROX/SIMETH 30 ML CUP PO PRN (19:18)
[2019-04-19] MEDS ORDERED: ZIPRASIDONE 20 MG VIAL IM PRN (19:18)
[2019-04-19] MEDS ORDERED: MAGNESIUM HYDROXIDE 2,400 MG/10 ML CUP PO PRN (19:18)
[2019-04-19] MEDS ORDERED: LORazepam 1 MG TAB PO PRN (19:18)
[2019-04-19 19:52] LABS: Amphetamine Screen,Urine Not Detected (NotDetected); Barbiturate Screen,Urine Not Detected (NotDetected); Benzodiazepines Screen,Urine Not Detected (NotDetected); Cocaine Screen,Urine Not Detected (NotDetected); Methadone Screen, Urine Not Detected (NotDetected); Opiate Screen,Urine Detected (NotDetected); Oxycodone Screen, Urine Not Detected (NotDetected); Phencyclidine Screen,Urine Not Detected (NotDetected); Tricyclic Antidepressant,Urine Not Detected (NotDetected); Urn Cannabinoid Scrn Not Detected (NotDetected)
[2019-04-19 20:08] LABS: Glucose,Whole Blood 131 mg/dL (75-99)
[2019-04-19] MEDS: LISINOPRIL 20 MG TAB PO SCH (20:08)
[2019-04-19] MEDS: metFORMIN 500 MG TAB PO SCH (20:08)
[2019-04-19 20:38] LABS: Appearance,Urine Clear (Clear); Bilirubin,Urine Negative (Negative); Blood,Urine Negative (Negative); Color,Urine Yellow; Glucose,Urine (UA) Negative (Negative); Ketones,Urine Negative (Negative); Leukocyte Esterase,Urine Negative (Negative); Nitrite,Urine Negative (Negative); PH, Urine 5.5 (5.0-8.0); Protein,Urine Trace (Negative); Specific Gravity,Urine 1.016 (1.001-1.035); Urobilinogen,Urine <2.0 mg/dL (<2.0)
[2019-04-19] MEDS: ACETAMINOPHEN TAB 325 MG TAB PO PRN (21:20)
[2019-04-19] MEDS: IPRATROPIUM-ALBUTEROL 3 ML NEB INHALATION SCH (23:21)
[2019-04-20] MEDS: LEVOTHYROXINE 100 MCG TAB PO SCH (06:30)
[2019-04-20 07:43] LABS: Glucose,Whole Blood 86 mg/dL (75-99)
[2019-04-20] MEDS: metFORMIN 500 MG TAB PO SCH ×2 (09:26→18:19)
[2019-04-20] MEDS: LISINOPRIL 20 MG TAB PO SCH ×2 (09:27→21:00)
[2019-04-20] MEDS: PANTOPRAZOLE 40 MG TABLET PO SCH (09:27)
[2019-04-20] MEDS: amLODIPine 5 MG TAB PO SCH (09:27)
[2019-04-20] MEDS: NICOTINE 21MG/24HR PATCH TRANSDERM SCH (09:27)
[2019-04-20] MEDS: DILTIAZEM CD 180 MG CAP.ER.24H PO SCH (09:27)
[2019-04-20] MEDS: ATORVASTATIN 20 MG TAB PO SCH (09:27)
[2019-04-20] MEDS: IPRATROPIUM-ALBUTEROL 3 ML NEB INHALATION SCH ×3 (09:40→20:46)
[2019-04-20] MEDS: SYMBICORT 80-4.5 MCG INHALER INHALATION SCH ×2 (09:40→20:46)
[2019-04-20] MEDS: ESCITALOPRAM 10 MG TAB PO SCH (09:45)
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
[2019-04-20] MEDS: ACETAMINOPHEN TAB 325 MG TAB PO PRN ×2 (09:53→21:54)
[2019-04-20 12:16] LABS: Anisocytosis Slight; Basophils # (A) 0.2 k/uL (0-0.2); Basophils % (A) 2 %; Eosinophils # (A) 0.5 k/uL (0-0.7); Eosinophils % (A) 4 %; Lymphocytes # (A) 3.5 k/uL (1.0-4.8); Lymphocytes % (A) 30 %; MCH 27.4 pg (25.0-35.0); MCHC 32.3 g/dL (31.0-37.0); MCV 84.9 fL (80.0-100.0); Mean Platelet Volume 8.4; Monocytes # (A) 0.8 k/uL (0-1.0); Monocytes % (A) 7 %; Neutrophils # (A) 6.6 k/uL (1.3-7.7); Neutrophils % (A) 57 %; Platelet Count 293 k/uL (150-450); RBC 5.89 m/uL (3.80-5.40); RDW 16.9 % (11.5-15.5); WBC 11.7 k/uL (3.8-10.6)
[2019-04-20 12:17] LABS: HGB 16.1 gm/dL (11.4-16.0)
[2019-04-20 13:03] LABS: Glucose,Whole Blood 111 mg/dL (75-99)
[2019-04-20 15:08] LABS: Albumin 3.8 g/dL (3.5-5.0); Bilirubin,Unconjugated 0.3 mg/dL (0.0-1.1); Calcium 9.7 mg/dL (8.4-10.2); Total Bilirubin 0.3 mg/dL (0.2-1.3); Total Protein 6.6 g/dL (6.3-8.2)
[2019-04-20 17:52] LABS: Glucose,Whole Blood 120 mg/dL (75-99)
[2019-04-20 19:32] LABS: Hemoglobin A1C 7.3 % (4.0-6.0)
[2019-04-20 20:24] LABS: Glucose,Whole Blood 170 mg/dL (75-99)
[2019-04-20] MEDS ORDERED: LOPERAMIDE 2 MG CAP PO STA (20:26)
[2019-04-21] MEDS: IPRATROPIUM-ALBUTEROL 3 ML NEB INHALATION SCH ×4 (03:18→21:25)
[2019-04-21] MEDS: LEVOTHYROXINE 100 MCG TAB PO SCH (06:10)
[2019-04-21 07:48] LABS: Glucose,Whole Blood 106 mg/dL (75-99)
[2019-04-21] MEDS: SYMBICORT 80-4.5 MCG INHALER INHALATION SCH (07:52)
[2019-04-21] MEDS: PANTOPRAZOLE 40 MG TABLET PO SCH (07:52)
[2019-04-21] MEDS: metFORMIN 500 MG TAB PO SCH ×2 (07:52→17:04)
[2019-04-21] MEDS: amLODIPine 5 MG TAB PO SCH (08:00)
[2019-04-21] MEDS: ATORVASTATIN 20 MG TAB PO SCH (08:00)
[2019-04-21] MEDS: ESCITALOPRAM 10 MG TAB PO SCH (08:00)
[2019-04-21] MEDS: LISINOPRIL 20 MG TAB PO SCH ×2 (08:00→21:52)
[2019-04-21] MEDS: NICOTINE 21MG/24HR PATCH TRANSDERM SCH (08:01)
[2019-04-21] MEDS: DILTIAZEM CD 180 MG CAP.ER.24H PO SCH (08:48)
[2019-04-21] MEDS: ACETAMINOPHEN TAB 325 MG TAB PO PRN ×3 (10:30→22:41)
[2019-04-21] MEDS ORDERED: AZITHROMYCIN 500 MG TAB PO STA (12:49)
--- NOTE | 2019-04-21 13:06 | P.HPMEDMHU ---
History of Present Illness H&P Date: 04/21/19 Chief Complaint: consult for MHU HPI The patient is a 59-year-old obese female with a past medical history of COPD, type 2 diabetes essential hypertension hypothyroidism that is currently admitted to the acute inpatient psychiatry service after she presented with depression and increasing feelings of hopelessness. The patient was apparently recently discharged 04/18/19 where she was admitted for bilateral pneumonia and a COPD exacerbation, on discharge the patient did not have any money to fill her prescription and and had subsequently lost her bed [facility] [place] [facility] and subsequently presented here. Apparently the patient is from [place] and is just to find a PCP here, she plans to move to [facility] in the next few weeks. Since discharge the patient denies any subjective fevers or chills, she reports to have quit smoking and has not smoked since 04/18. She denies any significant wheezing but reports a nonproductive cough, she denies any chest pain or shortness of breath. Review of Systems Pertinent positives per HPI all other review of systems negative, she Past Medical History Past Medical History: COPD, Diabetes Mellitus, Hypertension, Thyroid Disorder Additional Past Medical History / Comment(s): Hernia History of Any Multi-Drug Resistant Organisms: None Reported Past Surgical History: Orthopedic Surgery Past Psychological History: No Psychological Hx Reported Smoking Status: Current every day smoker Past Alcohol Use History: None Reported Past Drug Use History: None Reported Medications and Allergies Home Medications Medication Instructions Recorded Confirmed Type Albuterol Inhaler [Ventolin Hfa 2 puff INHALATION RT-Q6H PRN 04/12/19 04/19/19 History Inhaler] Atorvastatin [Lipitor] 20 mg PO DAILY 04/12/19 04/19/19 History Diltiazem HCl [Cardizem CD] 360 mg PO DAILY 04/12/19 04/19/19 History Fluticasone/Vilanterol [Breo 1 puff INHALATION RT-DAILY 04/12/19 04/19/19 History Ellipta 100-25 Mcg Inhaler] Ipratropium-Albuterol Nebulize 3 ml INHALATION RT-QID 04/12/19 04/19/19 History [Duoneb 0.5 mg-3 mg/3 ml Soln] Levothyroxine Sodium 200 mcg PO DAILY 04/12/19 04/19/19 History Lisinopril 40 mg PO BID 04/12/19 04/19/19 History Omeprazole 20 mg PO DAILY 04/12/19 04/19/19 History amLODIPine [Norvasc] 5 mg PO DAILY 04/12/19 04/19/19 History metFORMIN HCL [Glucophage] 1,000 mg PO BID 04/12/19 04/19/19 History Allergies Allergy/AdvReac Type Severity Reaction Status Date / Time NSAIDS (Non-Steroidal AdvReac ULCERS Verified 04/19/19 16:44 Anti-Inflamma Physical Exam Vitals: Vital Signs Temp Pulse Resp BP 04/21/19 06:38 98.4 F 73 18 137/60 04/20/19 21:01 102 H 20 139/86 Constitutional: No acute distress, conversant, pleasant Eyes: Anicteric sclerae, moist conjunctiva, no lid-lag, PERRLA ENMT: NC/AT,Oropharynx clear, no erythema, exudates Neck:Supple, FROM, no masses, or JVD, No carotid bruits; No thyromegaly Lungs: Clear to auscultation, Clear to percussion, Normal respiratory effort, no accessory muscle use Cardiovascular: Heart regular in rate and rhythm, No murmurs, gallops, or rubs no peripheral edema Abdominal: Soft Nontender, nom distended, no guarding, no rebound or rigidity, Normoactive bowel sounds No hepatomegaly, No splenomegaly, No palpable mass No abdominal wall hernia noted Skin: Normal temperature, tone, texture, turgor, No induration No subcutaneous nodules, No rash, lesions, No ulcers Extremities:No digital cyanosis No clubbing, Pedal pulses intact and symmetrical Radial pulses intact and symmetrical Normal gait and station, No ca lf tenderness Psychiatric: Alert and oriented to person, place and time, Appropriate affect Intact judgement Neuro: Muscles Strength 5/5 in all 4 extremities, Sensation to light touch grossly present throughout, Cranial nerves II-XII grossly intact. No focal sensory deficits Cranial Nerve Examination - Cranial Nerves Cranial Nerve II- Optic: Intact Cranial Nerve III- Oculomotor: Intact Cranial Nerve IV- Trochlear: Intact Cranial Nerve V- Trigeminal: Intact Cranial Nerve - Abducens: Intact Cranial Nerve VII- Facial: Intact Cranial Nerve VIII- Auditory: Intact Cranial Nerve IX- Glossopharyngeal: Intact Cranial Nerve X- Vagus: Intact Cranial Nerve XI- Accessory: Intact Cranial Nerve XII- Hypoglossal: Intact Results CBC & Chem 7: 04/20/19 11:28 04/20/19 14:21 Labs: Abnormal Lab Results - Last 24 Hours (Table) 04/20/19 04/20/19 04/20/19 Range/Units 11:28 13:01 14:21 BUN 45 H (7-17) mg/dL Creatinine 1.20 H (0.52-1.04) mg/dL Glucose 167 H (74-99) mg/dL POC Glucose (mg/dL) 111 H (75-99) mg/dL Hemoglobin A1c 7.3 H (4.0-6.0) % Triglycerides 477 H (<150) mg/dL Cholesterol 209 H (<200) mg/dL 04/20/19 04/20/19 04/21/19 Range/Units 17:50 20:22 07:46 BUN (7-17) mg/dL Creatinine (0.52-1.04) mg/dL Glucose (74-99) mg/dL POC Glucose (mg/dL) 120 H 170 H 106 H (75-99) mg/dL Hemoglobin A1c (4.0-6.0) % Triglycerides (<150) mg/dL Cholesterol (<200) mg/dL Assessment and Plan (1) Major depressive disorder Current Visit: Yes Status: Acute Code(s): F32.9 - MAJOR DEPRESSIVE DISORDER, SINGLE EPISODE, UNSPECIFIED SNOMED Code(s): 611499210 (2) Type 2 diabetes mellitus Current Visit: Yes Status: Acute Code(s): E11.9 - TYPE 2 DIABETES MELLITUS WITHOUT COMPLICATIONS SNOMED Code(s): 46764384 (3) Community acquired pneumonia Current Visit: Yes Status: Acute Code(s): J18.9 - PNEUMONIA, UNSPECIFIED ORGANISM SNOMED Code(s): 880943499 (4) COPD (chronic obstructive pulmonary disease) Current Visit: Yes Status: Acute Code(s): J44.9 - CHRONIC OBSTRUCTIVE PULMONARY DISEASE, UNSPECIFIED SNOMED Code(s): 12153071 (5) Essential hypertension Current Visit: Yes Status: Acute Code(s): I10 - ESSENTIAL (PRIMARY) HYPERTENSION SNOMED Code(s): 86752024 Plan: The patient is admitted to acute inpatient psychiatry team will defer to primary regarding ongoing psychotropic medications and cognitive behavioral therapy. Medically speaking the patient was recently discharged for acute COPD exacerbation which now seems to be stable but she was unable to fill her prescriptions for azithromycin and prednisone, we'll plan to resume the patient's antibiotics for the next 5 days, I will hold off on any oral steroids at this time but will restart inhaled steroid. Patient is stable at this time will plan to sign off. I appreciate the opportunity to be involved in this patient's ongoing care. Further questions please not hesitate to contact the [facility] inpatient team
[2019-04-21] MEDS: LOPERAMIDE 2 MG CAP PO PRN (19:29)
[2019-04-21] MEDS: SYMBICORT 160-4.5 MCG INHALER INHALATION SCH (21:25)
[2019-04-22] MEDS: IPRATROPIUM-ALBUTEROL 3 ML NEB INHALATION SCH ×5 (00:31→21:58)
[2019-04-22] MEDS: LEVOTHYROXINE 100 MCG TAB PO SCH (05:59)
[2019-04-22] MEDS: PANTOPRAZOLE 40 MG TABLET PO SCH (08:04)
[2019-04-22] MEDS: metFORMIN 500 MG TAB PO SCH ×2 (08:04→17:53)
[2019-04-22] MEDS: ATORVASTATIN 20 MG TAB PO SCH (08:05)
[2019-04-22] MEDS: LISINOPRIL 20 MG TAB PO SCH ×2 (08:05→21:04)
[2019-04-22] MEDS: amLODIPine 5 MG TAB PO SCH (08:05)
[2019-04-22] MEDS: NICOTINE 21MG/24HR PATCH TRANSDERM SCH (08:05)
[2019-04-22] MEDS: ESCITALOPRAM 10 MG TAB PO SCH (08:05)
[2019-04-22] MEDS: SYMBICORT 160-4.5 MCG INHALER INHALATION SCH ×3 (08:09→21:07)
[2019-04-22] MEDS: DILTIAZEM CD 180 MG CAP.ER.24H PO SCH (08:55)
[2019-04-22] MEDS ORDERED: guaiFENesin 600 MG TABLET.ER PO PRN (12:17)
[2019-04-22] MEDS: AZITHROMYCIN 500 MG TAB PO SCH (12:23)
--- NOTE | 2019-04-22 12:25 | P.PN ---
Progress Note - Text Interval history: The patient's found in her room sleeping she is verbally arousable and follows me to an interview room. She indicates her mood is improving. She is hopeful that her brothers helping her find a residence upon discharge. She states that she doesn't feel as good today struggling with symptoms related to a possible sinus infection. She was seen by internal medicine yesterday she was started on azithromycin to complete her course of antibiotics that was started with her last hospitalization for COPD. The patient has not attended groups this morning but indicates she will continue the rest of the day. She did eat she slept through the night. Mental status exam: The patient is an obese female appearing her stated age. She has a disheveled appearance hygiene is adequate. Speech is fluent spontaneous nonpressured. She is pleasant and cooperative. She denies having any acute suicidal ideation here in the hospital she reports no homicidal ideation intent or plan. She is reporting no symptoms of psychosis. She demonstrates no symptoms of hypomania or william. Insight and judgment improving. Strengths no verbal or physical aggressiveness. Plan: The patient will continue on her current psychotropic medication. We will monitor for safety and continue encouraging her to fully comply with the milieu. Social work will explore placement options for her. She appears to be clinically stabilizing.
[2019-04-22] MEDS: ACETAMINOPHEN TAB 325 MG TAB PO PRN ×2 (13:22→21:04)
[2019-04-22] MEDS: LOPERAMIDE 2 MG CAP PO PRN ×2 (21:04→23:41)
[2019-04-23] MEDS: LEVOTHYROXINE 100 MCG TAB PO SCH (06:43)
[2019-04-23] MEDS: IPRATROPIUM-ALBUTEROL 3 ML NEB INHALATION SCH ×4 (06:43→21:58)
[2019-04-23] MEDS: ACETAMINOPHEN TAB 325 MG TAB PO PRN ×2 (07:10→20:42)
[2019-04-23] MEDS: LISINOPRIL 20 MG TAB PO SCH ×2 (08:20→20:41)
[2019-04-23] MEDS: amLODIPine 5 MG TAB PO SCH (08:20)
[2019-04-23] MEDS: ESCITALOPRAM 10 MG TAB PO SCH (08:20)
[2019-04-23] MEDS: metFORMIN 500 MG TAB PO SCH ×2 (08:20→17:39)
[2019-04-23] MEDS: PANTOPRAZOLE 40 MG TABLET PO SCH (08:20)
[2019-04-23] MEDS: ATORVASTATIN 20 MG TAB PO SCH (08:21)
[2019-04-23] MEDS: DILTIAZEM CD 180 MG CAP.ER.24H PO SCH (08:22)
--- NOTE | 2019-04-23 08:32 | PN ---
PROGRESS NOTE DATE OF SERVICE: 04/23/2019 CHIEF COMPLAINT: The patient was admitted for depression. She felt hopeless and had thoughts of jumping in front of traffic to commit suicide. INTERVAL HISTORY: Patient has been doing better. She said her mood is improving. She has been talking to her brother about options for residence once she is discharged. She says at this point there is an option that she could live in a residential facility in [place] that is close to where her brother lives. At this point, she said her brother has been checking on bed availability. In addition, part of the plans would be that her sister- in-law would need to pick her up after [id number]'s work. She then would go to social security because she would need to have a payee in order to be admitted to that facility. She said if all the plans are put in place, she has the option of living there for 6 to 12 months, which would give her time to work on more independent living. The patient still has some anxiety about getting all the plans in place. She has had some contact with her family over the weekend. She tolerates her psychotropic medications. MENTAL STATUS: Patient gave fairly good eye contact. She was somewhat restless. She answered questions with direct responses. Her thoughts were clear. Her affect was somewhat constricted. Her mood was reserved though not clearly down or depressed. She did not appear to be significantly distressed. ASSESSMENT: I will continue the current diagnosis and treatment plan. I will continue psychotropic medications the same. I reviewed issues with Social Work. We will need to have contacts most likely with the brother and [id number] as part of arranging followup. It is anticipated that the patient might be able to be discharged as early as tomorrow if she continues to show improvement in her mood and if discharge planning is solidified. We will continue to focus on stabilization and discharge planning. MMODL / IJN: [id number] /
[2019-04-23] MEDS: NICOTINE 21MG/24HR PATCH TRANSDERM SCH (10:23)
[2019-04-23] MEDS: SYMBICORT 160-4.5 MCG INHALER INHALATION SCH ×2 (10:27→20:40)
[2019-04-23] MEDS: AZITHROMYCIN 500 MG TAB PO SCH (14:05)
[2019-04-24] MEDS: IPRATROPIUM-ALBUTEROL 3 ML NEB INHALATION SCH ×3 (00:07→21:48)
[2019-04-24] MEDS: LEVOTHYROXINE 100 MCG TAB PO SCH (06:24)
[2019-04-24] MEDS: ESCITALOPRAM 10 MG TAB PO SCH (08:58)
[2019-04-24] MEDS: PANTOPRAZOLE 40 MG TABLET PO SCH (08:58)
[2019-04-24] MEDS: DILTIAZEM CD 180 MG CAP.ER.24H PO SCH (08:58)
[2019-04-24] MEDS: metFORMIN 500 MG TAB PO SCH ×2 (08:58→16:41)
[2019-04-24] MEDS: amLODIPine 5 MG TAB PO SCH (08:59)
[2019-04-24] MEDS: LISINOPRIL 20 MG TAB PO SCH ×2 (08:59→22:24)
[2019-04-24] MEDS: NICOTINE 21MG/24HR PATCH TRANSDERM SCH (08:59)
[2019-04-24] MEDS: ATORVASTATIN 20 MG TAB PO SCH (08:59)
[2019-04-24] MEDS: SYMBICORT 160-4.5 MCG INHALER INHALATION SCH ×2 (08:59→20:57)
--- NOTE | 2019-04-24 09:53 | P.DS ---
Providers Date of admission: 04/19/19 17:27 Expected date of discharge: 04/24/19 Attending physician: Juan R Hendricks Consults: 04/19/19 19:18 Consult Physician Routine Consulting Provider: Maureen Jose Consult Reason/Comments: H & P and medical care Do you want consulting provider notified?: Yes Primary care physician: Stated None - Discharge Diagnosis(es) (1) Major depressive disorder, recurrent severe without psychotic features Current Visit: Yes Status: Acute Priority: High (2) Anxiety disorder, unspecified Current Visit: Yes Status: Acute Priority: Medium Hospital Course: Brief summary of admission note: This patient is a 59-year-old but female who was admitted to the mental health unit through the emergency room for suicidal ideation. The patient states that she's been struggling with severe symptoms of depression and she felt hopeless. She presented to the hospital reporting that she would jump in front of a vehicle to commit suicide. She reported her primary stressor was being homeless. She described a history of major depressive episodes as well as anxiety attacks. For full details please refer to my psychiatric evaluation dated 04/20/2019. Summary of hospital course: The patient was admitted to the mental health unit voluntarily. We reviewed her present symptoms and treatment options. We decided to initiate Lexapro 10 mg daily for depressive and anxiety symptoms. She was seen by internal medicine for routine history and physical exam. She was placed on a course of antibiotics for recent pulmonary issue. She was seen by social work for routine psychosocial assessment and for discharge planning. The patient had been residing with her brother who is trying to assist her in finding placement. It appears that she may be able to get her own apartment once discharged she plans to stay with a friend as part of a transition process. During the course of her admission she reported a progressive improvement of symptoms as well as a resolution of suicidal ideation. Mental status exam: The patient is a morbidly obese female appearing her stated age. She has adequate hygiene and fair grooming. Eye contact is appropriate. Speech is fluent spontaneous nonpressured. She is pleasant and cooperative during the interaction. She reports her mood is better she denies having any suicidal or homicidal ideation intent or plan. She states she no longer feels hopeless. She reports no auditory or visual hallucinations or any specific delusions. There is no observed evidence of psychosis. She demonstrates no tangential thinking loose associations or flight of ideas he does not appear hypomanic or manic. Insight and judgment grossly intact. She is oriented to person place and date. She demonstrates no involuntary movements she demonstrates no verbal or physical aggressiveness. Continuously she describes several examples of future oriented thinking. Impressions 1. Major depressive disorder recurrent severe without psychosis, anxiety unspecified Plan: The patient will be discharged mental health unit today to reside with her friend Bill. This will be part of a transition process until she gets her own residence. She feels that her brother has been supportive and is assisting with this search. She will continue on Lexapro 10 mg daily. She will follow-up with her primary care physician as needed. She has not been using any alcohol marijuana or illicit drugs. At this time there is no imminent safety risk she is appropriate for transition outpatient care. She is instructed to return to the hospital with any acute safety concerns. Patient Condition at Discharge: Stable Plan - Discharge Summary New Discharge Prescriptions: New Nicotine 21Mg/24Hr Patch [Habitrol] 1 patch TRANSDERM DAILY #14 patch Escitalopram [Lexapro] 10 mg PO DAILY #30 tab Azithromycin [Zithromax] 500 mg PO DAILY@1200 #3 tab Continue Omeprazole 20 mg PO DAILY Albuterol Inhaler [Ventolin Hfa Inhaler] 2 puff INHALATION RT-Q6H PRN PRN Reason: Shortness Of Breath metFORMIN HCL [Glucophage] 1,000 mg PO BID Lisinopril 40 mg PO BID Levothyroxine Sodium 200 mcg PO DAILY Diltiazem HCl [Cardizem CD] 360 mg PO DAILY amLODIPine [Norvasc] 5 mg PO DAILY Ipratropium-Albuterol Nebulize [Duoneb 0.5 mg-3 mg/3 ml Soln] 3 ml INHALATION RT-QID Fluticasone/Vilanterol [Breo Ellipta 100-25 Mcg Inhaler] 1 puff INHALATION RT-DAILY Atorvastatin [Lipitor] 20 mg PO DAILY Discharge Medication List Albuterol Inhaler [Ventolin Hfa Inhaler] 2 puff INHALATION RT-Q6H PRN 04/12/19 [History] Atorvastatin [Lipitor] 20 mg PO DAILY 04/12/19 [History] Diltiazem HCl [Cardizem CD] 360 mg PO DAILY 04/12/19 [History] Fluticasone/Vilanterol [Breo Ellipta 100-25 Mcg Inhaler] 1 puff INHALATION RT- DAILY 04/12/19 [History] Ipratropium-Albuterol Nebulize [Duoneb 0.5 mg-3 mg/3 ml Soln] 3 ml INHALATION RT-QID 04/12/19 [History] Levothyroxine Sodium 200 mcg PO DAILY 04/12/19 [History] Lisinopril 40 mg PO BID 04/12/19 [History] Omeprazole 20 mg PO DAILY 04/12/19 [History] amLODIPine [Norvasc] 5 mg PO DAILY 04/12/19 [History] metFORMIN HCL [Glucophage] 1,000 mg PO BID 04/12/19 [History] Azithromycin [Zithromax] 500 mg PO DAILY@1200 #3 tab 04/24/19 [Rx] Escitalopram [Lexapro] 10 mg PO DAILY #30 tab 04/24/19 [Rx] Nicotine 21Mg/24Hr Patch [Habitrol] 1 patch TRANSDERM DAILY #14 patch 04/24/19 [Rx] Follow up Appointment(s)/Referral(s): None,Stated [Primary Care Provider] - 1-2 days
[2019-04-24] MEDS: AZITHROMYCIN 500 MG TAB PO SCH (13:55)
[2019-04-24] MEDS: ACETAMINOPHEN TAB 325 MG TAB PO PRN (15:58)
[2019-04-24] MEDS: LOPERAMIDE 2 MG CAP PO PRN (15:59)
[2019-04-25] MEDS: IPRATROPIUM-ALBUTEROL 3 ML NEB INHALATION SCH (06:01)
[2019-04-25] MEDS: LEVOTHYROXINE 100 MCG TAB PO SCH (06:09)
[2019-04-25 06:36] VITALS: BP 106/52; PULSE 68; RESP 16; TEMP 97.8
--- NOTE | 2019-04-25 08:50 | P.DS ---
Providers Date of admission: 04/19/19 17:27 Expected date of discharge: 04/25/19 Attending physician: Juan R Hendricks Consults: 04/19/19 19:18 Consult Physician Routine Consulting Provider: Maureen Jose Consult Reason/Comments: H & P and medical care Do you want consulting provider notified?: Yes Primary care physician: Stated None - Discharge Diagnosis(es) (1) Major depressive disorder, recurrent severe without psychotic features Current Visit: Yes Status: Acute Priority: High (2) Anxiety disorder, unspecified Current Visit: Yes Status: Acute Priority: Medium Hospital Course: The patient was slated to be discharged yesterday. Please refer to the discharge summary dictated 04/24/2019. The discharge was discontinued as she could not be transported to her residence until today. Mental status exam: The patient is an overweight female appearing her stated age. She is dressed in her own clothing hygiene grooming fair. Eye contact is appropriate. Speech is fluent spontaneous nonpressured. She indicates her mood is good. Affect is euthymic. She denies having any suicidal or homicidal ideation intent or plan. She reports no auditory or visual hallucinations or any specific delusions. There is no observed evidence of psychosis. She demonstrates no hypomanic or manic symptoms. She seated calmly in the chair. She is oriented to person place and date. She describes future oriented thinking. Insight and judgment grossly intact. Impressions 1. Major depressive disorder recurrent severe without psychosis, anxiety disorder unspecified Plan: The patient will be discharged mental health unit today. She'll continue on BuSpar 10 mg daily. Her family has identified a placement for her and they will transfer her there upon discharge. There is no imminent safety risk is appropriate for transition outpatient care. She is instructed to return to the hospital any acute safety concerns. Patient Condition at Discharge: Stable Plan - Discharge Summary New Discharge Prescriptions: New Nicotine 21Mg/24Hr Patch [Habitrol] 1 patch TRANSDERM DAILY #14 patch Escitalopram [Lexapro] 10 mg PO DAILY #30 tab Azithromycin [Zithromax] 500 mg PO DAILY@1200 #3 tab Continue Omeprazole 20 mg PO DAILY Albuterol Inhaler [Ventolin Hfa Inhaler] 2 puff INHALATION RT-Q6H PRN PRN Reason: Shortness Of Breath metFORMIN HCL [Glucophage] 1,000 mg PO BID Lisinopril 40 mg PO BID Levothyroxine Sodium 200 mcg PO DAILY Diltiazem HCl [Cardizem CD] 360 mg PO DAILY amLODIPine [Norvasc] 5 mg PO DAILY Ipratropium-Albuterol Nebulize [Duoneb 0.5 mg-3 mg/3 ml Soln] 3 ml INHALATION RT-QID Fluticasone/Vilanterol [Breo Ellipta 100-25 Mcg Inhaler] 1 puff INHALATION RT-DAILY Atorvastatin [Lipitor] 20 mg PO DAILY Discharge Medication List Albuterol Inhaler [Ventolin Hfa Inhaler] 2 puff INHALATION RT-Q6H PRN 04/12/19 [History] Atorvastatin [Lipitor] 20 mg PO DAILY 04/12/19 [History] Diltiazem HCl [Cardizem CD] 360 mg PO DAILY 04/12/19 [History] Fluticasone/Vilanterol [Breo Ellipta 100-25 Mcg Inhaler] 1 puff INHALATION RT- DAILY 04/12/19 [History] Ipratropium-Albuterol Nebulize [Duoneb 0.5 mg-3 mg/3 ml Soln] 3 ml INHALATION RT-QID 04/12/19 [History] Levothyroxine Sodium 200 mcg PO DAILY 04/12/19 [History] Lisinopril 40 mg PO BID 04/12/19 [History] Omeprazole 20 mg PO DAILY 04/12/19 [History] amLODIPine [Norvasc] 5 mg PO DAILY 04/12/19 [History] metFORMIN HCL [Glucophage] 1,000 mg PO BID 04/12/19 [History] Azithromycin [Zithromax] 500 mg PO DAILY@1200 #3 tab 04/24/19 [Rx] Escitalopram [Lexapro] 10 mg PO DAILY #30 tab 04/24/19 [Rx] Nicotine 21Mg/24Hr Patch [Habitrol] 1 patch TRANSDERM DAILY #14 patch 04/24/19 [Rx] Follow up Appointment(s)/Referral(s): [facility] [Other] - 04/25/19 12:00 pm (Radha Sewell ) [facility] [NON-STAFF] - 1 Week Patient Instructions/Handouts: How to Stop Smoking (DC), Pneumococcal Vaccine for Adults (DC), Depression (DC), COPD (Chronic Obstructive Pulmonary Disease) (DC), Hypertension (DC), Anxiety (GEN), Diabetes and Nutrition (DC) Activity/Diet/Wound Care/Special Instructions: Activity and diet as tolerated. No guns or weapons in the home. Refrain from drugs or alcohol not prescribed by the doctor. Take all meds as prescribed adn attend all follow up appointments as scheduled. If in need of refills go to the outpatient psychiatrist or your primary doctor. If in crisis please go to the emergency department for evaluation
[2019-04-25] MEDS: NICOTINE 21MG/24HR PATCH TRANSDERM SCH (08:52)
[2019-04-25] MEDS: LISINOPRIL 20 MG TAB PO SCH (08:53)
[2019-04-25] MEDS: ESCITALOPRAM 10 MG TAB PO SCH (08:53)
[2019-04-25] MEDS: metFORMIN 500 MG TAB PO SCH (08:53)
[2019-04-25] MEDS: amLODIPine 5 MG TAB PO SCH (08:53)
[2019-04-25] MEDS: DILTIAZEM CD 180 MG CAP.ER.24H PO SCH (08:53)
[2019-04-25] MEDS: PANTOPRAZOLE 40 MG TABLET PO SCH (08:53)
[2019-04-25] MEDS: ATORVASTATIN 20 MG TAB PO SCH (08:53)
[2019-04-25] MEDS: SYMBICORT 160-4.5 MCG INHALER INHALATION SCH (08:54)
== END 2019-04-25 10:23 | disposition home or self-care (01) | DRG 885 ==
LOC: EC 13:37 → 3MHU 17:27
PROVIDERS: ADMIT Psychiatry & Neurology Psychiatry; ATTEND Psychiatry & Neurology Psychiatry
DX: F33.2 Major depressive disorder, recurrent severe without psychotic features (principal); J18.9 Pneumonia, unspecified organism; R45.851 Suicidal ideations; J44.0 Chronic obstructive pulmonary disease with (acute) lower respiratory infection; E03.9 Hypothyroidism, unspecified; E11.9 Type 2 diabetes mellitus without complications; E66.01 Morbid (severe) obesity due to excess calories; E78.5 Hyperlipidemia, unspecified; F17.200 Nicotine dependence, unspecified, uncomplicated; F41.1 Generalized anxiety disorder; I10 Essential (primary) hypertension; Z62.810 Personal history of physical and sexual abuse in childhood; T43.225A Adverse effect of selective serotonin reuptake inhibitors, initial encounter; Z59.0 Homelessness; Z79.899 Other long term (current) drug therapy; Z79.890 Hormone replacement therapy; Z91.410 Personal history of adult physical and sexual abuse
CPT/HCPCS: 80053; 80061; 80306; 81003; 82075; 82248; 83036; 84443; 85025; 94640; 99285

== ENCOUNTER 2019-09-10 23:06 | Inpatient (IN) | payer MEDICARE, OTHER ==
[2019-09-10] MEDS ORDERED: MORPHINE SULFATE 2 MG/ML SYRINGE IVP STA (23:38)
[2019-09-10] MEDS ORDERED: SODIUM CHLORIDE 0.9% 500 ML 500 ML IV STA (23:38)
[2019-09-10] MEDS ORDERED: ONDANSETRON 4 MG/2 ML VIAL IVP STA (23:38)
--- NOTE | 2019-09-10 23:53 | XR ---
EXAMINATION TYPE: XR foot complete RT DATE OF EXAM: 09/10/2019 COMPARISON: NONE HISTORY: Leg swelling TECHNIQUE: 3 views FINDINGS: Metatarsals are intact. There is soft tissue swelling of the forefoot. There is an Achilles calcaneal spur. I see no fracture nor dislocation. IMPRESSION: Soft tissue swelling. No fracture seen.
[2019-09-10] MEDS ORDERED: IPRATROPIUM-ALBUTEROL 3 ML NEB INHALATION STA (23:59)
[2019-09-11 00:45] LABS: Basophils # (A) 0.2 k/uL (0-0.2); Basophils % (A) 1 %; Eosinophils # (A) 0.6 k/uL (0-0.7); Eosinophils % (A) 5 %; HCT 44.1 % (34.0-46.0); HGB 14.2 gm/dL (11.4-16.0); Lymphocytes # (A) 2.8 k/uL (1.0-4.8); Lymphocytes % (A) 22 %; MCH 26.8 pg (25.0-35.0); MCHC 32.3 g/dL (31.0-37.0); MCV 83.1 fL (80.0-100.0); Mean Platelet Volume 7.7; Monocytes # (A) 0.7 k/uL (0-1.0); Monocytes % (A) 6 %; Neutrophils # (A) 8.4 k/uL (1.3-7.7); Neutrophils % (A) 65 %; Platelet Count 409 k/uL (150-450); RBC 5.31 m/uL (3.80-5.40); RDW 14.5 % (11.5-15.5); WBC 12.9 k/uL (3.8-10.6)
[2019-09-11 00:48] LABS: Albumin 3.8 g/dL (3.5-5.0); Calcium 9.4 mg/dL (8.4-10.2); Potassium 5.1 mmol/L (3.5-5.1); Total Bilirubin 0.5 mg/dL (0.2-1.3); Total Protein 6.8 g/dL (6.3-8.2)
--- NOTE | 2019-09-11 01:12 | XR ---
EXAMINATION TYPE: XR chest 2V DATE OF EXAM: 09/11/2019 COMPARISON: 04/14/2019 HISTORY: Cough TECHNIQUE: FINDINGS: There is a small infiltrate at the left lung base. There is no heart failure. Costophrenic angles are clear. There is minor spurring in the thoracic spine. There is no pleural effusion. Heart size is fairly normal. IMPRESSION: There is a new small infiltrate left lower lobe compared to last exam. No heart failure.
--- NOTE | 2019-09-11 01:43 | US ---
EXAMINATION TYPE: US venous doppler duplex LE RT DATE OF EXAM: 09/11/2019 1:25 AM COMPARISON: NONE CLINICAL HISTORY: Right leg swelling and pain. Right leg swelling and pain x 2 days. No hx of DVT. Pa tient does not take blood thinners. SIDE PERFORMED: Right TECHNIQUE: The lower extremity deep venous system is examined utilizing real time linear array sonog jacqueline with graded compression, doppler sonography and color-flow sonography. VESSELS IMAGED: External Iliac Vein (EIV) Common Femoral Vein Deep Femoral Vein Greater Saphenous Vein * Femoral Vein Popliteal Vein Small Saphenous Vein * Proximal Calf Veins (* superficial vessels) Right Leg: No evidence of DVT in veins imaged at this time from prox calf veins to EIV. IMPRESSION: No evidence of deep vein thrombosis in the right leg.
[2019-09-11 01:47] LABS: Appearance,Urine Cloudy (Clear); Bacteria,Urine Few /hpf; Bilirubin,Urine Negative (Negative); Blood,Urine Negative (Negative); Color,Urine Yellow; Glucose,Urine (UA) Negative (Negative); Hyaline Casts,Urine 3 /lpf (0-2); Ketones,Urine Trace (Negative); Leukocyte Esterase,Urine Large (Negative); Mucus,Urine Few /hpf; Nitrite,Urine Positive (Negative); PH, Urine 5.5 (5.0-8.0); Protein,Urine 1+ (Negative); RBC,Urine 3 /hpf (0-5); Squamous Epithelial Cell,Urine 6 /hpf (0-4); WBC,Urine 84 /hpf (0-5)
--- NOTE | 2019-09-11 01:56 | ED ---
General Adult HPI - General Source: patient, EMS Mode of arrival: EMS Limitations: no limitations <Angelic Zamarripa - Last Filed: 09/11/19 03:00> <Kj Wilsl - Last Filed: 09/11/19 03:11> - General Chief complaint: Extremity Problem,Nontraumatic Stated complaint: R foot pain Time Seen by Provider: 09/10/19 23:30 - History of Present Illness Initial comments: 59-year-old female patient presents to the emergency department today for evaluation of right foot pain and swelling. Patient states that symptoms s tarted today. Patient states she is unable to walk on the foot due to the pain. Patient states that she has felt unwell, chillded, and feverish. Patient denies any injury to the foot. Denies any history of similar symptoms. Patient is home O2 dependent. States she has a chronic cough with sputum production. She denies any increased shortness of breath. She denies any nausea or vomiting. Denies any diarrhea. Patient denies any recent rash, chest pain, abdominal pain, diarrhea, constipation, back pain, numbness, tingling, dizziness, weakness, hematuria, dysuria, urinary urgency, urinary frequency, headache, visual changes, or any other complaints. (Angelic Zamarripa) - Related Data Home Medications Medication Instructions Recorded Confirmed Albuterol Inhaler [Ventolin Hfa 2 puff INHALATION RT-Q6H PRN 04/12/19 04/19/19 Inhaler] Atorvastatin [Lipitor] 20 mg PO DAILY 04/12/19 04/19/19 Diltiazem HCl [Cardizem CD] 360 mg PO DAILY 04/12/19 04/19/19 Fluticasone/Vilanterol [Breo 1 puff INHALATION RT-DAILY 04/12/19 04/19/19 Ellipta 100-25 Mcg Inhaler] Ipratropium-Albuterol Nebulize 3 ml INHALATION RT-QID 04/12/19 04/19/19 [Duoneb 0.5 mg-3 mg/3 ml Soln] Levothyroxine Sodium 200 mcg PO DAILY 04/12/19 04/19/19 Lisinopril 40 mg PO BID 04/12/19 04/19/19 Omeprazole 20 mg PO DAILY 04/12/19 04/19/19 amLODIPine [Norvasc] 5 mg PO DAILY 04/12/19 04/19/19 metFORMIN HCL [Glucophage] 1,000 mg PO BID 04/12/19 04/19/19 Previous Rx's Medication Instructions Recorded Azithromycin [Zithromax] 500 mg PO DAILY@1200 #3 tab 04/24/19 Escitalopram [Lexapro] 10 mg PO DAILY #30 tab 04/24/19 Nicotine 21Mg/24Hr Patch [Habitrol] 1 patch TRANSDERM DAILY #14 patch 04/24/19 Allergies Allergy/AdvReac Type Severity Reaction Status Date / Time NSAIDS (Non-Steroidal AdvReac ULCERS Verified 04/19/19 16:44 Anti-Inflamma Review of Systems ROS Other: All systems not noted in ROS Statement are negative. <Angelic Zamarripa - Last Filed: 09/11/19 03:00> ROS Other: All systems not noted in ROS Statement are negative. <Kj Wills - Last Filed: 09/11/19 03:11> ROS Statement: Those systems with pertinent positive or pertinent negative responses have been documented in the HPI. Past Medical History Past Medical History: Asthma, COPD, Diabetes Mellitus, Hypertension, Thyroid D isorder Additional Past Medical History / Comment(s): Hernia History of Any Multi-Drug Resistant Organisms: None Reported Past Surgical History: Orthopedic Surgery Additional Past Surgical History / Comment(s): teeth extraction 2 weeks ago total top 5-6 teeth total. Past Psychological History: No Psychological Hx Reported Smoking Status: Current every day smoker Past Alcohol Use History: None Reported Past Drug Use History: None Reported <Angelic Zamarripa - Last Filed: 09/11/19 03:00> General Exam Limitations: no limitations General appearance: alert, in no apparent distress, other (Physical well-dev eloped, well-nourished, ill-appearing adult female patient in no acute distress. Vital signs upon presentation are temperature 100.5F, pulse 94, respirations 21, blood pressure 132/73, pulse ox 92% on room air) Eye exam: Present: normal appearance, PERRL, EOMI. Absent: scleral icterus, conjunctival injection, periorbital swelling ENT exam: Present: normal exam, normal oropharynx, mucous membranes moist Respiratory exam: Present: wheezes (Coarse expiratory wheezing noted throughout the posterior lung field). Absent: respiratory distress, rales, rhonchi, stridor Cardiovascular Exam: Present: regular rate, normal rhythm, normal heart sounds. Absent: systolic murmur, diastolic murmur, rubs, gallop, clicks GI/Abdominal exam: Present: soft, normal bowel sounds. Absent: distended, tenderness, guarding, rebound, rigid Extremities exam: Present: full ROM, tenderness (Over the entirety of the right foot. ), normal capillary refill, other (There is generalized swelling of the right foot, there is some redness encompassing the right great toe and second toe. Foot is hot to touch. No calf tenderness. Pedal and post tibial pulse is 2+ and equal biaterally.). Absent: pedal edema, joint swelling, calf tenderness Neurological exam: Present: alert, oriented X3, CN II-XII intact Psychiatric exam: Present: normal affect, normal mood Skin exam: Present: warm, dry, intact, normal color. Absent: rash <Angelic Zamarripa - Last Filed: 09/11/19 03:00> Course Vital Signs 09/10/19 09/11/19 09/11/19 23:15 00:07 00:19 Temperature 100.5 F H Pulse Rate 94 85 85 Respiratory 21 Rate Blood Pressure 132/73 O2 Sat by Pulse 92 L Oximetry Medical Decision Making - Lab Data Result diagrams: 09/11/19 00:20 09/11/19 00:20 - Radiology Data Radiology results: report reviewed, image reviewed <Angelic Zamarripa - Last Filed: 09/11/19 03:00> - Lab Data Result diagrams: 09/11/19 00:20 09/11/19 00:20 <Kj Wills - Last Filed: 09/11/19 03:11> - Medical Decision Making 59-year-old female patient presents to the emergency department today with a chief complaint of right foot pain and swelling. Patient states symptoms started today. Denies history of similar symptoms. Patient was febrile upon arrival to 100.5. Patient's lungs were quite wheezy and she appeared to be short of breath. She is oxygen dependent at 3 L. Chest x-ray did reveal left lower lobe infiltrate. Labs reviewed and did reveal mildly elevated white blood cell, positive urinary tract infection. We'll been to the hospital and treat with Levaquin for pneumonia, UTI, and possible sialitis of the right foot. I did discuss findings with also the patient and she is agreeable with this plan. (Angelic Zamarripa) I saw this patient in conjunction with the physician promotions assistant sales marketing. I performed independent history and physical exam. Agree with case management. (Kj Wills) - Lab Data Lab Results 09/11/19 09/11/19 09/11/19 Range/Units 00:20 00:20 00:20 WBC 12.9 H (3.8-10.6) k/uL RBC 5.31 (3.80-5.40) m/uL Hgb 14.2 (11.4-16.0) gm/dL Hct 44.1 (34.0-46.0) % MCV 83.1 (80.0-100.0) fL MCH 26.8 (25.0-35.0) pg MCHC 32.3 (31.0-37.0) g/dL RDW 14.5 (11.5-15.5) % Plt Count 409 (150-450) k/uL Neutrophils % 65 % Lymphocytes % 22 % Monocytes % 6 % Eosinophils % 5 % Basophils % 1 % Neutrophils # 8.4 H (1.3-7.7) k/uL Lymphocytes # 2.8 (1.0-4.8) k/uL Monocytes # 0.7 (0-1.0) k/uL Eosinophils # 0.6 (0-0.7) k/uL Basophils # 0.2 (0-0.2) k/uL Sodium 136 L (137-145) mmol/L Potassium 5.1 (3.5-5.1) mmol/L Chloride 105 (98-107) mmol/L Carbon Dioxide 23 (22-30) mmol/L Anion Gap 8 mmol/L BUN 29 H (7-17) mg/dL Creatinine 1.46 H (0.52-1.04) mg/dL Est GFR (CKD-EPI)AfAm 45 (>60 ml/min/1.73 sqM) Est GFR (CKD-EPI)NonAf 39 (>60 ml/min/1.73 sqM) Glucose 69 L (74-99) mg/dL Plasma Lactic Acid Angus 1.7 (0.7-2.0) mmol/L Calcium 9.4 (8.4-10.2) mg/dL Total Bilirubin 0.5 (0.2-1.3) mg/dL AST 18 (14-36) U/L ALT 13 (4-34) U/L Alkaline Phosphatase 125 (38-126) U/L Total Protein 6.8 (6.3-8.2) g/dL Albumin 3.8 (3.5-5.0) g/dL Urine Color Urine Appearance (Clear) Urine pH (5.0-8.0) Ur Specific [place] (1.001-1.035) Urine Protein (Negative) Urine Glucose (UA) (Negative) Urine Ketones (Negative) Urine Blood (Negative) Urine Nitrite (Negative) Urine Bilirubin (Negative) Urine Urobilinogen (<2.0) mg/dL Ur Leukocyte Esterase (Negative) Urine RBC (0-5) /hpf Urine WBC (0-5) /hpf Ur Squamous Epith Cells (0-4) /hpf Urine Bacteria (None) /hpf Hyaline Casts (0-2) /lpf Urine Mucus (None) /hpf 09/11/19 Range/Units 01:36 WBC (3.8-10.6) k/uL RBC (3.80-5.40) m/uL Hgb (11.4-16.0) gm/dL Hct (34.0-46.0) % MCV (80.0-100.0) fL MCH (25.0-35.0) pg MCHC (31.0-37.0) g/dL RDW (11.5-15.5) % Plt Count (150-450) k/uL Neutrophils % % Lymphocytes % % Monocytes % % Eosinophils % % Basophils % % Neutrophils # (1.3-7.7) k/uL Lymphocytes # (1.0-4.8) k/uL Monocytes # (0-1.0) k/uL Eosinophils # (0-0.7) k/uL Basophils # (0-0.2) k/uL Sodium (137-145) mmol/L Potassium (3.5-5.1) mmol/L Chloride (98-107) mmol/L Carbon Dioxide (22-30) mmol/L Anion Gap mmol/L BUN (7-17) mg/dL Creatinine (0.52-1.04) mg/dL Est GFR (CKD-EPI)AfAm (>60 ml/min/1.73 sqM) Est GFR (CKD-EPI)NonAf (>60 ml/min/1.73 sqM) Glucose (74-99) mg/dL Plasma Lactic Acid Angus (0.7-2.0) mmol/L Calcium (8.4-10.2) mg/dL Total Bilirubin (0.2-1.3) mg/dL AST (14-36) U/L ALT (4-34) U/L Alkaline Phosphatase (38-126) U/L Total Protein (6.3-8.2) g/dL Albumin (3.5-5.0) g/dL Urine Color Yellow Urine Appearance Cloudy H (Clear) Urine pH 5.5 (5.0-8.0) Ur Specific [place]oll 1.030 (1.001-1.035) Urine Protein 1+ H (Negative) Urine Glucose (UA) Negative (Negative) Urine Ketones Trace H (Negative) Urine Blood Negative (Negative) Urine Nitrite Positive H (Negative) Urine Bilirubin Negative (Negative) Urine Urobilinogen 2.0 (<2.0) mg/dL Ur Leukocyte Esterase Large H (Negative) Urine RBC 3 (0-5) /hpf Urine WBC 84 H (0-5) /hpf Ur Squamous Epith Cells 6 H (0-4) /hpf Urine Bacteria Few H (None) /hpf Hyaline Casts 3 H (0-2) /lpf Urine Mucus Few H (None) /hpf - Radiology Data Venous Doppler duplex of the right lower extremity was obtained. Report was reviewed in its entirety. Impression by Dr. Alvarado shows no evidence of deep pain thrombosis on the right leg. Two-view x-ray of the chest is obtained. Report was reviewed in its entirety. Impression by Dr. Alvarado shows new small infiltrate left lower lobe compared to last exam. No Heart failure. 3 views of the right foot are obtained. Report was reviewed in its entirety. Impression by Dr. Alvarado shows soft tissue swelling. No fracture seen (Angelic Zamarripa) Disposition Decision to Admit Reason: Admit from EC Decision Date: 09/11/19 Decision Time: 02:41 <Angelic Zamarripa - Last Filed: 09/11/19 03:00> <Kj Wills - Last Filed: 09/11/19 03:11> Clinical Impression: Left lower lobe pneumonia, Urinary tract infection, Cellulitis of right foot Narrative: Rule out gout (Angelic Zamarripa) Disposition: ADMITTED IP TO THIS HOSP Condition: Serious Referrals: Harvey Barker MD [STAFF PHYSICIAN] - 1-2 days
[2019-09-11] MEDS ORDERED: LEVOFLOXACIN 750MG-D5W PMX 750 MG in DEXTROSE/WATER 1 150ML.BAG IVPB STA (02:11)
[2019-09-11] MEDS ORDERED: NALOXONE 0.4 MG/ML 1 ML VIAL IV PRN (02:41)
[2019-09-11] MEDS ORDERED: ACETAMINOPHEN TAB 325 MG TAB PO PRN (02:41)
[2019-09-11] MEDS ORDERED: LEVOFLOXACIN 750MG-D5W PMX 750 MG in DEXTROSE/WATER 1 150ML.BAG IVPB SCH (03:00)
[2019-09-11] MEDS: SODIUM CHLORIDE 0.9% 1,000 ML IV SCH ×3 (03:27→23:26)
[2019-09-11 03:35] LABS: Glucose,Whole Blood 96 mg/dL (75-99)
[2019-09-11] MEDS: MORPHINE SULFATE 4 MG/ML SYRINGE IV PRN ×2 (07:39→17:16)
[2019-09-11] MEDS: IPRATROPIUM-ALBUTEROL 3 ML NEB INHALATION SCH ×5 (08:54→20:54)
[2019-09-11] MEDS ORDERED: LOPERAMIDE 2 MG CAP PO PRN (10:44)
[2019-09-11] MEDS ORDERED: FLUTICASONE 50MCG/SPRAY NASAL 16GM EA NOSTRIL PRN (10:44)
[2019-09-11] MEDS: ONDANSETRON 4 MG/2 ML VIAL IVP PRN (11:25)
[2019-09-11 12:07] LABS: Glucose,Whole Blood 104 mg/dL (75-99)
[2019-09-11] MEDS: methylPREDNISolone SOD SUCCI 40 MG/ML 1 ML VIAL IV SCH ×2 (12:14→20:39)
[2019-09-11] MEDS ORDERED: INSULIN ASPART (NovoLOG) 100 UNIT/ML VIAL SQ SCH (12:30)
--- NOTE | 2019-09-11 12:44 | P.HPIM ---
History of Present Illness 59-year-old female came with complaints of swelling in the right foot and the patient has right toe swelling redness mild tenderness local is of temperature in the right toe. This is also complaining of cough not bringing up much pa tient still smokes about half a pack a day. Patient does have COPD he uses certain happy to his apartment patient denied any dysuria urinary urgency- related frequency patient had low-grade fever. Chest x-ray showed left lower lobe infiltrate. Patient is wheezing significantly. Urine is abnormal but patient doesn't have any UTI symptoms Review of Systems REVIEW OF SYSTEMS: CONSTITUTIONAL: No fever, no malaise, no fatigue. HEENT: No recent visual problems or hearing problems. Denied any sore throat. CARDIOVASCULAR: No chest pain, orthopnea, PND, no palpitations, no syncope. PULMONARY: as mentioned in HPI GASTROINTESTINAL: No diarrhea, no nausea, no vomiting, no abdominal pain. NEUROLOGICAL: No headaches, no weakness, no numbness. HEMATOLOGICAL: Denies any bleeding or petechiae. GENITOURINARY: Denies any burning micturition, frequency, or urgency. MUSCULOSKELETAL/RHEUMATOLOGICAL: as mentioned in HPI ENDOCRINE: Denies any polyuria or polydipsia. The rest of the 14-point review of systems is negative. Past Medical History Past Medical History: Asthma, COPD, Diabetes Mellitus, Hypertension, Thyroid Dis order Additional Past Medical History / Comment(s): Hernia History of Any Multi-Drug Resistant Organisms: None Reported Past Surgical History: Orthopedic Surgery Additional Past Surgical History / Comment(s): teeth extraction 2 weeks ago total top 5-6 teeth total. Past Psychological History: No Psychological Hx Reported Smoking Status: Current every day smoker Past Alcohol Use History: None Reported Past Drug Use History: None Reported Medications and Allergies Home Medications Medication Instructions Recorded Confirmed Type Albuterol Inhaler [Ventolin Hfa 2 puff INHALATION RT-Q6H PRN 04/12/19 09/11/19 History Inhaler] Atorvastatin [Lipitor] 20 mg PO DAILY@0804/12/19 09/11/19 History Diltiazem HCl [Cardizem CD] 360 mg PO DAILY@0800 04/12/19 09/11/19 History Fluticasone/Vilanterol [Breo 1 puff INHALATION RT-DAILY 04/12/19 09/11/19 History Ellipta 100-25 Mcg Inhaler] Ipratropium-Albuterol Nebulize 3 ml INHALATION RT-QID 04/12/19 09/11/19 History [Duoneb 0.5 mg-3 mg/3 ml Soln] Levothyroxine Sodium 200 mcg PO DAILY@79904/12/19 09/11/19 History Lisinopril 40 mg PO BID@799,199904/12/19 09/11/19 History Omeprazole 20 mg PO DAILY@79904/12/19 09/11/19 History amLODIPine [Norvasc] 5 mg PO DAILY@79904/12/19 09/11/19 History metFORMIN HCL [Glucophage] 1,000 mg PO BID@799,199904/12/19 09/11/19 History Carbamide Peroxide [Debrox Otic] 5 - 10 drops BOTH EARS BID PRN 09/11/19 09/11/19 History Escitalopram [Lexapro] 10 mg PO DAILY@79909/11/19 09/11/19 History Fluticasone Nasal [place] [Flonase 1 spr EA NOSTRIL BID PRN 09/11/19 09/11/19 History Nasal [place]] Loperamide [Imodium] 2 mg PO QID PRN 09/11/19 09/11/19 History Nicotine 14Mg/24Hr Patch [Habitrol 1 patch TRANSDERM DAILY 09/11/19 09/11/19 History 14Mg/24Hr Patch] glipiZIDE [Glucotrol] 10 mg PO DAILY@79909/11/19 09/11/19 History Allergies Allergy/AdvReac Type Severity Reaction Status Date / Time NSAIDS (Non-Steroidal AdvReac ULCERS Verified 09/11/19 10:06 Anti-Inflamma Physical Exam Vitals: Vital Signs Temp Pulse Pulse Resp BP BP Pulse Ox 09/11/19 09:05 84 09/11/19 08:57 78 91 L 09/11/19 07:00 98.4 F 89 18 119/74 94 L 09/11/19 04:00 80 09/11/19 03:29 98.8 F 69 18 106/63 92 L 09/11/19 03:03 98.2 F 80 19 122/69 91 L 09/11/19 00:19 85 09/11/19 00:07 85 09/10/19 23:15 100.5 F H 94 21 132/73 92 L Intake and Output 09/10/19 09/11/19 09/11/19 22:59 06:59 14:59 Intake Total 150 236 Balance 150 236 Intake: Intake, IV Titration 150 Amount Levofloxacin 750Mg-D5w 150 Pmx 750 mg In Dextrose/ Water 1 150ml.bag @ 100 mls/hr IVPB Q24H [facility] Rx#: [id number] Oral 236 Other: Voiding Method Toilet Weight 102.965 kg PHYSICAL EXAMINATION: GENERAL: The patient is alert and oriented x3, not in any acute distress. Well developed, well nourished. HEENT: Pupils are round and equally reacting to light. EOMI. No scleral icterus. No conjunctival pallor. Normocephalic, atraumatic. No pharyngeal erythema. No thyromegaly. CARDIOVASCULAR: S1 and S2 present. No murmurs, rubs, or gallops. PULMONARY: significantly decreased air entry bilateral ankles significant wheezing on exam no crackles were appreciated no bronchophony or egophony ABDOMEN: Soft, nontender, nondistended, normoactive bowel sounds. No palpable or ganomegaly. MUSCULOSKELETAL: No joint swelling or deformity. EXTREMITIES: No cyanosis, clubbing, or pedal edema. she does have swelling of the right foot with the redness in the right great toe with mild tenderness and local is of temperature NEUROLOGICAL: Gross neurological examination did not reveal any focal deficits. SKIN: No rashes. Results CBC & Chem 7: 09/11/19 00:20 09/11/19 00:20 Labs: Abnormal Lab Results - Last 24 Hours (Table) 09/11/19 09/11/19 09/11/19 Range/Units 00:20 00:20 01:36 WBC 12.9 H (3.8-10.6) k/uL Neutrophils # 8.4 H (1.3-7.7) k/uL Sodium 136 L (137-145) mmol/L BUN 29 H (7-17) mg/dL Creatinine 1.46 H (0.52-1.04) mg/dL Glucose 69 L (74-99) mg/dL POC Glucose (mg/dL) (75-99) mg/dL Urine Appearance Cloudy H (Clear) Urine Protein 1+ H (Negative) Urine Ketones Trace H (Negative) Urine Nitrite Positive H (Negative) Ur Leukocyte Esterase Large H (Negative) Urine WBC 84 H (0-5) /hpf Ur Squamous Epith Cells 6 H (0-4) /hpf Urine Bacteria Few H (None) /hpf Hyaline Casts 3 H (0-2) /lpf Urine Mucus Few H (None) /hpf 09/11/19 Range/Units 12:05 WBC (3.8-10.6) k/uL Neutrophils # (1.3-7.7) k/uL Sodium (137-145) mmol/L BUN (7-17) mg/dL Creatinine (0.52-1.04) mg/dL Glucose (74-99) mg/dL POC Glucose (mg/dL) 104 H (75-99) mg/dL Urine Appearance (Clear) Urine Protein (Negative) Urine Ketones (Negative) Urine Nitrite (Negative) Ur Leukocyte Esterase (Negative) Urine WBC (0-5) /hpf Ur Squamous Epith Cells (0-4) /hpf Urine Bacteria (None) /hpf Hyaline Casts (0-2) /lpf Urine Mucus (None) /hpf Thrombosis Risk Factor Assmnt - Choose All That Apply Any of the Below Risk Factors Present?: Yes Each Factor Represents 1 point: Age 41-60 years, Obesity (BMI >25) Thrombosis Risk Factor Assessment Total Risk Factor Score: 2 Thrombosis Risk Factor Assessment Level: Low Risk Assessment and Plan Plan: -acute on chronic hypercapnic respiratory failure secondary to COPD exacerbation patient was started on systemic steroids continue with inhalational treatments. Patient will be started on Rocephin will discontinue levofloxacin. I cannot completely rule out pneumonia patient has a mild infiltrate the left lower lobe patient does have fever that can be from gout. Patient may have come in today quite pneumonia which I cannot rule out -right great toe swelling: Clinically appears like gout suspicion is low for septic arthritis and fever can be from gout itself systemic steroids will be helpful patient cannot be on an assays because of her creatinine. Infectious disease was consulted next and heaviness and Y bacteria will not require any antibiotics -Continue nicotine use: Counseling was provided -Acute renal failure on chronic kidney disease, acute renal failure prerenal [place] otemia patient was started on IV fluids will repeat basic volley profile again tomorrow, chronic kidney disease probably secondary to diabetic nephropathy -Type 2 diabetes mellitus excellent-hypertension -hyperlipidemia -DVT prophylaxis with subcutaneous heparin GI prophylaxis with Pepcid
[2019-09-11 17:03] LABS: Glucose,Whole Blood 219 mg/dL (75-99)
[2019-09-11] MEDS: HEPARIN SODIUM,PORCINE 5,000 UNIT/ML 1 ML VIAL SQ SCH ×2 (17:17→23:25)
[2019-09-11] MEDS: FAMOTIDINE 20 MG TAB PO SCH (17:18)
[2019-09-11] MEDS: INSULIN ASPART (NovoLOG) 100 UNIT/ML VIAL SQ SCH ×2 (17:18→20:38)
[2019-09-11 20:11] LABS: Glucose,Whole Blood 290 mg/dL (75-99)
[2019-09-11] MEDS ORDERED: FAMOTIDINE 20 MG TAB PO SCH (21:00)
--- NOTE | 2019-09-11 22:50 | P.CONS ---
History of Present Illness - Reason for Consult Consult date: 09/11/19 Fever and right foot pain Requesting physician: Cyndi Costa - Chief Complaint right foot pain x 2 days - History of Present Illness Patient is a 59-year female presenting to the ER at [facility] last night with chief complaints of right foot pain and swelling. The patient has been going on for about a day before she presented to the hospital and has regularly. Progressed to the point the patient able to walk on the foot due to pain patient describing the pain to be more of a sharp and worse on pressure currently did have some swelling but no redness or skin breakdown on any drainage and the patient denies any history of any trauma patient also complaining of fever with chills patient denies having any headache or URI symptoms denies having chest pain she did have some minimal cough but not bringing up any sputum no nausea vomiting abdominal pain or any diarrhea and no significant urinary symptoms with the symptom the patient was evaluated by the ER physician on arrival to the ER the patient had fever 100.5 her white count was elevated at 12.9 thousand the patient UA was positive patient did have a x- rays of the foot which show soft tissue swelling no fracture seen chest x-ray infiltrate left lower lobe compared to last exam with concern for possible pneumonia patient has been started on Rocephin 1 g daily infectious disease was consulted for further recommendation benefit questionable cellulitis to the right foot area. Review of Systems Positive point has been mentioned in HPI rest of the systems are negative Past Medical History Past Medical History: Asthma, COPD, Diabetes Mellitus, Hypertension, Thyroid Disorder Additional Past Medical History / Comment(s): Hernia History of Any Multi-Drug Resistant Organisms: None Reported Past Surgical History: Orthopedic Surgery Additional Past Surgical History / Comment(s): teeth extraction 2 weeks ago total top 5-6 teeth total. Past Psychological History: No Psychological Hx Reported Smoking Status: Current every day smoker Past Alcohol Use History: None Reported Past Drug Use History: None Reported Medications and Allergies Home Medications Medication Instructions Recorded Confirmed Type Albuterol Inhaler [Ventolin Hfa 2 puff INHALATION RT-Q6H PRN 04/12/19 09/11/19 History Inhaler] Atorvastatin [Lipitor] 20 mg PO DAILY@79904/12/19 09/11/19 History Diltiazem HCl [Cardizem CD] 360 mg PO DAILY@79904/12/19 09/11/19 History Fluticasone/Vilanterol [Breo 1 puff INHALATION RT-DAILY 04/12/19 09/11/19 History Ellipta 100-25 Mcg Inhaler] Ipratropium-Albuterol Nebulize 3 ml INHALATION RT-QID 04/12/19 09/11/19 History [Duoneb 0.5 mg-3 mg/3 ml Soln] Levothyroxine Sodium 200 mcg PO DAILY@79904/12/19 09/11/19 History Lisinopril 40 mg PO BID@799,199904/12/19 09/11/19 History Omeprazole 20 mg PO DAILY@79904/12/19 09/11/19 History amLODIPine [Norvasc] 5 mg PO DAILY@79904/12/19 09/11/19 History metFORMIN HCL [Glucophage] 1,000 mg PO BID@799,199904/12/19 09/11/19 History Carbamide Peroxide [Debrox Otic] 5 - 10 drops BOTH EARS BID PRN 09/11/19 09/11/19 History Escitalopram [Lexapro] 10 mg PO DAILY@79909/11/19 09/11/19 History Fluticasone Nasal [place] [Flonase 1 spr EA NOSTRIL BID PRN 09/11/19 09/11/19 History Nasal [place]] Loperamide [Imodium] 2 mg PO QID PRN 09/11/19 09/11/19 History Nicotine 14Mg/24Hr Patch [Habitrol 1 patch TRANSDERM DAILY 09/11/19 09/11/19 History 14Mg/24Hr Patch] glipiZIDE [Glucotrol] 10 mg PO DAILY@79909/11/19 09/11/19 History Allergies Allergy/AdvReac Type Severity Reaction Status Date / Time NSAIDS (Non-Steroidal AdvReac ULCERS Verified 09/11/19 10:06 Anti-Inflamma Physical Exam Vitals: Vital Signs Temp Pulse Pulse Resp BP BP Pulse Ox 09/11/19 21:05 88 09/11/19 20:56 84 09/11/19 20:00 97.8 F 81 18 143/80 92 L 09/11/19 17:25 84 09/11/19 17:13 76 09/11/19 15:57 18 09/11/19 14:48 98 F 66 18 104/66 96 09/11/19 14:02 88 09/11/19 13:52 84 09/11/19 09:05 84 09/11/19 08:57 78 91 L 09/11/19 07:00 98.4 F 89 18 119/74 94 L 09/11/19 04:00 80 09/11/19 03:29 98.8 F 69 18 106/63 92 L 09/11/19 03:03 98.2 F 80 19 122/69 91 L 09/11/19 00:19 85 09/11/19 00:07 85 09/10/19 23:15 100.5 F H 94 21 132/73 92 L Intake and Output 09/11/19 09/11/19 09/11/19 06:59 14:59 22:59 Intake Total 446 536 746 Balance 446 536 746 Intake: Intake, IV Titration 150 300 Amount Levofloxacin 750Mg-D5w 150 Pmx 750 mg In Dextrose/ Water 1 150ml.bag @ 100 mls/hr IVPB Q24H JAGDEEP Rx#: [id number] cefTRIAXone 1 gm In 300 Sodium Chloride 0.9% 50 ml @ 100 mls/hr IVPB Q24HR JAGDEEP Rx#:[id number] Oral 296 236 746 Other: Voiding Method Toilet Bedside Commode Diaper # Voids 1 Weight 102.965 kg GENERAL DESCRIPTION: Middle-aged female lying in bed, no distress. No tachypnea or accessory muscle of respiration use. HEENT: Shows Pallor , no scleral icterus. Oral mucous membrane is dry. NECK: Trachea central, no thyromegaly. LUNGS: Unlabored breathing. Decreased breath sound at the base. No wheeze or crackle. HEART: S1, S2, regular rate and rhythm. ABDOMEN: Soft, no tenderness , guarding or rigidity EXTREMITIES: No edema of feet. Right foot is swollen and tender to touch no significant redness no open wound or any drainage SKIN: No rash, no masses palpable. NEUROLOGICAL: The patient is awake, alert, oriented x3, mood and affect normal. Results CBC & Chem 7: 09/11/19 00:20 09/11/19 00:20 Labs: Abnormal Lab Results - Last 24 Hours (Table) 09/11/19 09/11/19 09/11/19 Range/Units 00:20 00:20 01:36 WBC 12.9 H (3.8-10.6) k/uL Neutrophils # 8.4 H (1.3-7.7) k/uL Sodium 136 L (137-145) mmol/L BUN 29 H (7-17) mg/dL Creatinine 1.46 H (0.52-1.04) mg/dL Glucose 69 L (74-99) mg/dL POC Glucose (mg/dL) (75-99) mg/dL Urine Appearance Cloudy H (Clear) Urine Protein 1+ H (Negative) Urine Ketones Trace H (Negative) Urine Nitrite Positive H (Negative) Ur Leukocyte Esterase Large H (Negative) Urine WBC 84 H (0-5) /hpf Ur Squamous Epith Cells 6 H (0-4) /hpf Urine Bacteria Few H (None) /hpf Hyaline Casts 3 H (0-2) /lpf Urine Mucus Few H (None) /hpf 09/11/19 09/11/19 09/11/19 Range/Units 12:05 17:02 20:09 WBC (3.8-10.6) k/uL Neutrophils # (1.3-7.7) k/uL Sodium (137-145) mmol/L BUN (7-17) mg/dL Creatinine (0.52-1.04) mg/dL Glucose (74-99) mg/dL POC Glucose (mg/dL) 104 H 219 H 290 H (75-99) mg/dL Urine Appearance (Clear) Urine Protein (Negative) Urine Ketones (Negative) Urine Nitrite (Negative) Ur Leukocyte Esterase (Negative) Urine WBC (0-5) /hpf Ur Squamous Epith Cells (0-4) /hpf Urine Bacteria (None) /hpf Hyaline Casts (0-2) /lpf Urine Mucus (None) /hpf Assessment and Plan Assessment: Patient presented hospital predominantly with pain to the right foot area which seem to have diffuse swelling no significant redness patient did have tenderness to the big toe and base of the heel with concern for possible gouty arthritis clinically doubt cellulitis 2-patient did have low-grade fever and white count concern for possible left lower lobe pneumonia likely community-acquired 3-patient with a positive UA but no significant urinary symptoms likely asymptomatic bacteriuria (1) Gouty arthritis Current Visit: Yes Status: Acute Code(s): M10.9 - GOUT, UNSPECIFIED SNOMED Code(s): 02130097 (2) Left lower lobe pneumonia Current Visit: Yes Status: Acute Code(s): J18.9 - PNEUMONIA, UNSPECIFIED ORGANISM SNOMED Code(s): 987338821 Plan: 1-check uric acid level and steroids has been added by admitting team 2-Rocephin 1 g daily and Zithromax to cover for community-acquired pneumonia 3-obtain a sputum for Gram stain and culture We will follow on clinical condition and cultures to further adjust medication if needed Thank you for this consultation we will follow the patient along with you Time with Patient: Greater than 30
[2019-09-12] MEDS ORDERED: LEVOFLOXACIN 750MG-D5W PMX 750 MG in DEXTROSE/WATER 1 150ML.BAG IVPB SCH (04:00)
[2019-09-12] MEDS: LEVOTHYROXINE 100 MCG TAB PO SCH (05:31)
[2019-09-12] MEDS: IPRATROPIUM-ALBUTEROL 3 ML NEB INHALATION PRN (05:46)
[2019-09-12 07:02] LABS: Glucose,Whole Blood 222 mg/dL (75-99)
[2019-09-12 07:37] LABS: Basophils # (A) 0.1 k/uL (0-0.2); Basophils % (A) 1 %; Eosinophils % (A) 0 %; HCT 43.6 % (34.0-46.0); HGB 13.7 gm/dL (11.4-16.0); Hypochromasia Slight; Lymphocytes # (A) 1.3 k/uL (1.0-4.8); Lymphocytes % (A) 12 %; MCH 27.3 pg (25.0-35.0); MCHC 31.4 g/dL (31.0-37.0); MCV 86.9 fL (80.0-100.0); Mean Platelet Volume 7.9; Monocytes # (A) 0.4 k/uL (0-1.0); Monocytes % (A) 4 %; Neutrophils # (A) 8.7 k/uL (1.3-7.7); Neutrophils % (A) 83 %; Platelet Count 396 k/uL (150-450); RBC 5.02 m/uL (3.80-5.40); RDW 14.8 % (11.5-15.5); WBC 10.5 k/uL (3.8-10.6)
[2019-09-12 07:50] LABS: Calcium 9.4 mg/dL (8.4-10.2); Potassium 5.4 mmol/L (3.5-5.1); Uric Acid 11.4 mg/dL (3.7-7.4)
[2019-09-12] MEDS: FAMOTIDINE 20 MG TAB PO SCH (07:50)
[2019-09-12] MEDS: methylPREDNISolone SOD SUCCI 40 MG/ML 1 ML VIAL IV SCH ×2 (07:50→21:21)
[2019-09-12] MEDS: HEPARIN SODIUM,PORCINE 5,000 UNIT/ML 1 ML VIAL SQ SCH ×2 (07:51→17:14)
[2019-09-12] MEDS: amLODIPine 5 MG TAB PO SCH (07:51)
[2019-09-12] MEDS: PANTOPRAZOLE 40 MG TABLET PO SCH (07:51)
[2019-09-12] MEDS: ESCITALOPRAM 10 MG TAB PO SCH (07:51)
[2019-09-12] MEDS: DILTIAZEM CD 180 MG CAP.ER.24H PO SCH (07:51)
[2019-09-12] MEDS: INSULIN ASPART (NovoLOG) 100 UNIT/ML VIAL SQ SCH ×4 (07:52→21:21)
[2019-09-12] MEDS: IPRATROPIUM-ALBUTEROL 3 ML NEB INHALATION SCH ×5 (07:53→19:52)
[2019-09-12] MEDS: NICOTINE 14MG/24HR PATCH TRANSDERM SCH (08:00)
[2019-09-12 09:20] LABS: C Reactive Protein 182.8 mg/L (<10.0)
--- NOTE | 2019-09-12 11:28 | CDI ---
Documentation Clarification Form Date: 09/12/2019 10:53:02 AM From: Colleen Hughes RN, CCDS Admit Date: 09/11/2019 02:43:00 AM Patient Name: Lillie Santana Visit Number: [id number] Discharge Date: ATTENTION: The Clinical Documentation Specialists (CDI) and [facility] Coding Staff appreciate your assistance in clarifying documentation. Please respond to the clarification below the line at the bottom and electronically sign. The CDI & [facility] Coding staff will review the response and follow-up if needed. Please note: Queries are made part of the Legal Health Record. If you have any questions, please contact the author of this message via ITS. Dr. Cyndi Costa Patient was admitted with acute on chronic renal failure per H&P on 09/11/19. Specificity is needed for the stage of chronic renal failure. History/Risk Factors: Diabetes Mellitus, Hypertension, Chronic renal failure Clinical Indicators: 59-year-old with complaints of right foot pain swelling was found on 09/11/19 and had a BUN 29, Creatinine 1.46, and GFR 39. 09/12/19 BUN 37, CR 1.57 GFR: 36 Patients Baseline BUN/CR/GFR Not known Treatment: IV.9 % @100 mls/hr Monitor BUN, Creatinine In order to capture the severity of condition, please clarify if the condition signifies: CKD Stage 3 (GFR 30-59) Other, please specify Unable to determine (Last Revision: November 2017) MTDD
[2019-09-12 11:51] LABS: Glucose,Whole Blood 240 mg/dL (75-99)
--- NOTE | 2019-09-12 15:11 | P.PN ---
Subjective Progress Note Date: 09/12/19 Principal diagnosis: 59-year-old female came with complaints of swelling in the right foot and the patient has right toe swelling redness mild tenderness local is of temperature in the right toe. This is also complaining of cough not bringing up much patient still smokes about half a pack a day. Patient does have COPD he uses certain happy to his apartment patient denied any dysuria urinary urgency- related frequency patient had low-grade fever. Chest x-ray showed left lower lobe infiltrate. Patient is wheezing significantly. Urine is abnormal but patient doesn't have any UTI symptoms 09/12/2019 Patient is lying in bed resting but easily arousable. Patient states that she had a brief asthma attack this morning requiring high flow oxygen for a few minutes and is currently on 4-5 L of oxygen via nasal cannula and states that her shortness of breath has improved. Patient is currently on IV steroids and will continue at this time. Patient continues to have right foot swelling but denies any pain and discomfort today. No redness noted and no open lesions noted as well. Patient states that she is having some left lung discomfort with inspiration. Patient denies any chest pain, worsening shortness breath, or palpitations. Patient is afebrile today. Patient denies any nausea or vomiting and is tolerating diet. Objective - Vital Signs Vital signs: Vital Signs Temp 97.7 F 09/12/19 07:00 Pulse 80 09/12/19 11:35 Resp 20 09/12/19 08:50 BP 103/65 09/12/19 07:00 Pulse Ox 88 L 09/12/19 08:04 Intake & Output 09/11/19 09/12/19 09/12/19 18:59 06:59 18:59 Intake Total 1132 1350 592 Balance 1132 1350 592 Intake: Intake, IV Titration 300 1200 Amount Sodium Chloride 0.9% 1, 1200 000 ml @ 100 mls/hr IV . Q10H JAGDEEP Rx#:[id number] cefTRIAXone 1 gm In 300 Sodium Chloride 0.9% 50 ml @ 100 mls/hr IVPB Q24HR JAGDEEP Rx#:[id number] Oral 832 150 592 Other: Voiding Method Bedside Commode Bedside Commode Diaper Diaper # Voids 1 - Exam GENERAL: The patient is alert and oriented x3, not in any acute distress. Well developed, well nourished. HEENT: Pupils are round and equally reacting to light. EOMI. No scleral icterus. No conjunctival pallor. Normocephalic, atraumatic. No pharyngeal erythema. No thyromegaly. CARDIOVASCULAR: S1 and S2 present. No murmurs, rubs, or gallops. PULMONARY: significantly decreased air entry bilateral with expiratory wheezing noted on exam, no crackles were appreciated, no bronchophony or egophony ABDOMEN: Soft, nontender, nondistended, normoactive bowel sounds. No palpable organomegaly. MUSCULOSKELETAL: No joint swelling or deformity. EXTREMITIES: No cyanosis, clubbing, or pedal edema. she does have swelling of the right foot with mild redness in the right great toe with no tenderness on palpation and warm to the touch NEUROLOGICAL: Gross neurological examination did not reveal any focal deficits. SKIN: No rashes. - Labs CBC & Chem 7: 09/12/19 07:09/12/19 07:04 Labs: Abnormal Lab Results - Last 24 Hours (Table) 09/11/19 09/11/19 09/12/19 Range/Units 17:02 20:09 07:00 Neutrophils # (1.3-7.7) k/uL Sodium (137-145) mmol/L Potassium (3.5-5.1) mmol/L Carbon Dioxide (22-30) mmol/L BUN (7-17) mg/dL Creatinine (0.52-1.04) mg/dL Glucose (74-99) mg/dL POC Glucose (mg/dL) 219 H 290 H 222 H (75-99) mg/dL Uric Acid (3.7-7.4) mg/dL C-Reactive Protein (<10.0) mg/L Procalcitonin (0.02-0.09) ng/mL 09/12/19 09/12/19 09/12/19 Range/Units 07:04 07:04 07:04 Neutrophils # 8.7 H (1.3-7.7) k/uL Sodium 135 L (137-145) mmol/L Potassium 5.4 H (3.5-5.1) mmol/L Carbon Dioxide 19 L (22-30) mmol/L BUN 37 H (7-17) mg/dL Creatinine 1.57 H (0.52-1.04) mg/dL Glucose 220 H (74-99) mg/dL POC Glucose (mg/dL) (75-99) mg/dL Uric Acid 11.4 H (3.7-7.4) mg/dL C-Reactive Protein 182.8 H (<10.0) mg/L Procalcitonin 0.15 H (0.02-0.09) ng/mL 09/12/19 Range/Units 11:50 Neutrophils # (1.3-7.7) k/uL Sodium (137-145) mmol/L Potassium (3.5-5.1) mmol/L Carbon Dioxide (22-30) mmol/L BUN (7-17) mg/dL Creatinine (0.52-1.04) mg/dL Glucose (74-99) mg/dL POC Glucose (mg/dL) 240 H (75-99) mg/dL Uric Acid (3.7-7.4) mg/dL C-Reactive Protein (<10.0) mg/L Procalcitonin (0.02-0.09) ng/mL Microbiology - Last 24 Hours (Table) 09/11/19 00:20 Blood Culture - Preliminary Blood No Growth after 24 hours 09/11/19 Unknown Urine Culture - Preliminary Urine,Clean Catch Assessment and Plan Assessment: -acute on chronic hypercapnic respiratory failure secondary to COPD exacerbation. Patient is being maintained on systemic steroids and will continue with bronchodilators at this time. Patient will also continue on IV Rocephin at this time. Patient is currently requiring 4-5 L of oxygen via nasal cannula normally uses 2-2-1/2 L at home. -right great toe swelling: Clinically appears like gout although suspicion is low, possibly gouty arthritis. Redness has slightly improved of the right great toe and still having significant right foot swelling. Colchicine will be started. Infectious disease is following. -Continued nicotine use: Counseling was provided -Acute renal failure on chronic kidney disease stage III, acute renal failure prerenal azotemia patient being maintained on IV fluids at 100 mL per hour. will repeat a.m. labs, chronic kidney disease probably secondary to diabetic nephropathy -Type 2 diabetes mellitus -hypertension -hyperlipidemia -DVT prophylaxis with subcutaneous heparin -GI prophylaxis with Pepcid Plan: Recommend to continue current medications, management, and symptomatic treatment. Patient being started on colchicine for possible gouty arthritis flareup and will monitor closely. Will repeat a.m. labs as creatinine was slightly elevated. Will continue to monitor blood sugars closely as the blood sugars have been slightly elevated most likely due to IV steroids. Further recommendations to follow based on clinical course.
[2019-09-12 16:50] LABS: Glucose,Whole Blood 243 mg/dL (75-99)
[2019-09-12] MEDS: diphenhydrAMINE 2% CREAM 28.4 GM TUBE TOPICAL SCH (17:14)
[2019-09-12] MEDS: ONDANSETRON 4 MG/2 ML VIAL IVP PRN (20:39)
[2019-09-12 20:42] LABS: Glucose,Whole Blood 274 mg/dL (75-99)
[2019-09-12] MEDS: SODIUM CHLORIDE 0.9% 1,000 ML IV SCH (20:48)
[2019-09-12] MEDS: COLCHICINE 0.6 MG EACH PO SCH (21:21)
--- NOTE | 2019-09-12 21:32 | PN ---
PROGRESS NOTE DATE OF SERVICE: 09/12/2019 REASON FOR FOLLOW UP: 1. Pneumonia. 2. The right foot pain is unlikely gouty arthritis. INTERVAL HISTORY: The patient is currently afebrile. The patient seemed to be breathing more comfortably. The patient did have a cough with occasional sputum production. No hemoptysis. No nausea, vomiting, abdominal pain and pain to the right foot area has improved. PHYSICAL EXAMINATION: Blood pressure 138/77 with a pulse of 76, temperature 97.5. She is 98% on high-flow oxygen. General description is a middle-aged female up in the bed in no distress. Respiratory system: Unlabored breathing with bilateral expiratory wheeze. Heart S1, S2. Regular rate and rhythm. Abdomen soft, no tenderness. LABS: Hemoglobin 13.1, white count 10.5. BUN of 37. Creatinine 1.57. Uric acid of 11.4, a CRP and procalcitonin level elevated. Blood culture so far negative. DIAGNOSTIC IMPRESSION/PLAN: 1. Patient admitted to the hospital with right foot pain with swelling but no redness, likely representing acute gouty arthritis, currently being maintained on steroids. 2. Patient with left lower lobe infiltrate, likely a community-acquired pneumonia to continue with Rocephin and Zithromax. 3. Monitor clinical course closely. MMODL / IJN: [id number] /
[2019-09-13] MEDS: HEPARIN SODIUM,PORCINE 5,000 UNIT/ML 1 ML VIAL SQ SCH ×4 (00:54→23:44)
[2019-09-13] MEDS: SODIUM CHLORIDE 0.9% 1,000 ML IV SCH ×3 (06:05→23:44)
[2019-09-13 06:50] LABS: Glucose,Whole Blood 199 mg/dL (75-99)
[2019-09-13] MEDS: FAMOTIDINE 20 MG TAB PO SCH (07:51)
[2019-09-13] MEDS: LEVOTHYROXINE 100 MCG TAB PO SCH (07:51)
[2019-09-13] MEDS: COLCHICINE 0.6 MG EACH PO SCH (07:51)
[2019-09-13] MEDS: ESCITALOPRAM 10 MG TAB PO SCH (07:51)
[2019-09-13] MEDS: PANTOPRAZOLE 40 MG TABLET PO SCH (07:51)
[2019-09-13] MEDS: DILTIAZEM CD 180 MG CAP.ER.24H PO SCH (07:51)
[2019-09-13] MEDS: amLODIPine 5 MG TAB PO SCH (07:52)
[2019-09-13] MEDS: INSULIN ASPART (NovoLOG) 100 UNIT/ML VIAL SQ SCH ×4 (07:52→20:56)
[2019-09-13] MEDS: diphenhydrAMINE 2% CREAM 28.4 GM TUBE TOPICAL SCH ×2 (07:53→21:04)
[2019-09-13] MEDS: NICOTINE 14MG/24HR PATCH TRANSDERM SCH (07:53)
[2019-09-13] MEDS: IPRATROPIUM-ALBUTEROL 3 ML NEB INHALATION SCH ×4 (08:01→19:07)
[2019-09-13] MEDS ORDERED: COLCHICINE 0.6 MG EACH PO SCH (09:00)
[2019-09-13 09:36] LABS: Calcium 9.6 mg/dL (8.4-10.2); Potassium 5.4 mmol/L (3.5-5.1)
[2019-09-13] MEDS: methylPREDNISolone SOD SUCCI 40 MG/ML 1 ML VIAL IV SCH ×2 (10:50→20:56)
[2019-09-13 11:39] LABS: Glucose,Whole Blood 219 mg/dL (75-99)
[2019-09-13] MEDS: DOXYCYCLINE 100 MG CAP PO SCH ×2 (12:15→20:56)
--- NOTE | 2019-09-13 16:05 | P.PN ---
Subjective Progress Note Date: 09/13/19 Principal diagnosis: 59-year-old female came with complaints of swelling in the right foot and the patient has right toe swelling redness mild tenderness local is of temperature in the right toe. This is also complaining of cough not bringing up much patient still smokes about half a pack a day. Patient does have COPD he uses certain happy to his apartment patient denied any dysuria urinary urgency- related frequency patient had low-grade fever. Chest x-ray showed left lower lobe infiltrate. Patient is wheezing significantly. Urine is abnormal but patient doesn't have any UTI symptoms 09/12/2019 Patient is lying in bed resting but easily arousable. Patient states that she had a brief asthma attack this morning requiring high flow oxygen for a few minutes and is currently on 4-5 L of oxygen via nasal cannula and states that her shortness of breath has improved. Patient is currently on IV steroids and will continue at this time. Patient continues to have right foot swelling but denies any pain and discomfort today. No redness noted and no open lesions noted as well. Patient states that she is having some left lung discomfort with inspiration. Patient denies any chest pain, worsening shortness breath, or palpitations. Patient is afebrile today. Patient denies any nausea or vomiting and is tolerating diet. 09/13/2019 In follow-up today patient is lying in bed sleeping but easily arousable. Patient continues to require 5 L of oxygen via nasal cannula with oxygen saturation of 91%. Patient currently remains on IV steroids along with bronchodilators and will continue at this time. Patient remains quite short of breath and will repeat a chest x-ray in the morning. Patient's right foot swelling has improved and patient is maintained on colchicine daily and will continue at this time. Physical therapy to evaluate the patient as the patient lays in bed most of the day. Patient is being transitioned to oral doxycycline and will continue with IV Rocephin. No Reports of chest pain or palpitations. Patient is afebrile. No reports of nausea or vomiting and patient is tolerating diet. Objective - Vital Signs Vital signs: Vital Signs Temp 97.6 F 09/13/19 08:23 Pulse 72 09/13/19 11:32 Resp 18 09/13/19 08:38 BP 116/74 09/13/19 08:23 Pulse Ox 91 L 09/13/19 08:23 Intake & Output 09/12/19 09/13/19 09/13/19 18:59 06:59 18:59 Intake Total 828 236 Balance 828 236 Intake: Oral 828 236 Other: Voiding Method Bedside Commode Bedside Commode Bedside Commode Diaper Diaper Diaper Incontinent # Voids 1 1 3 - Exam GENERAL: The patient is alert and oriented x3, not in any acute distress. Well developed, well nourished. HEENT: Pupils are round and equally reacting to light. EOMI. No scleral icterus. No conjunctival pallor. Normocephalic, atraumatic. No pharyngeal erythema. No thyromegaly. CARDIOVASCULAR: S1 and S2 present. No murmurs, rubs, or gallops. PULMONARY: significantly decreased air entry bilateral with expiratory wheezing noted on exam, no crackles were appreciated, no bronchophony or egophony ABDOMEN: Soft, nontender, nondistended, normoactive bowel sounds. No palpable organomegaly. MUSCULOSKELETAL: No joint swelling or deformity. EXTREMITIES: No cyanosis, clubbing, or pedal edema. Right foot swelling has minimized with no redness noted NEUROLOGICAL: Gross neurological examination did not reveal any focal deficits. SKIN: No rashes. - Labs CBC & Chem 7: 09/12/19 07:04 09/13/19 09:02 Labs: Abnormal Lab Results - Last 24 Hours (Table) 09/12/19 09/12/19 09/13/19 Range/Units 16:49 20:39 06:47 Potassium (3.5-5.1) mmol/L Chloride (98-107) mmol/L Carbon Dioxide (22-30) mmol/L BUN (7-17) mg/dL Creatinine (0.52-1.04) mg/dL Glucose (74-99) mg/dL POC Glucose (mg/dL) 243 H 274 H 199 H (75-99) mg/dL 09/13/19 09/13/19 Range/Units 09:02 11:36 Potassium 5.4 H (3.5-5.1) mmol/L Chloride 110 H (98-107) mmol/L Carbon Dioxide 17 L (22-30) mmol/L BUN 41 H (7-17) mg/dL Creatinine 1.24 H (0.52-1.04) mg/dL Glucose 202 H (74-99) mg/dL POC Glucose (mg/dL) 219 H (75-99) mg/dL Microbiology - Last 24 Hours (Table) 09/11/19 00:20 Blood Culture - Preliminary Blood No Growth after 48 hours Assessment and Plan Assessment: -acute on chronic hypercapnic respiratory failure secondary to COPD exacerbation. Patient is being maintained on systemic steroids and will continue with bronchodilators at this time. Patient will also continue on IV Rocephin and oral doxycycline is being added at this time. Patient is currently requiring 4-5 L of oxygen via nasal cannula normally uses 2-2-1/2 L at home. Will repeat a chest x-ray in the morning and encourage increase in activity. -right great toe swelling: Clinically appears like gout although suspicion is low, possibly gouty arthritis. Redness and swelling has improved of the right foot and patient is maintained on colchicine -Continued nicotine use: Counseling was provided -Acute renal failure on chronic kidney disease stage III, acute renal failure prerenal azotemia, chronic kidney disease stage III probably secondary to diabetic nephropathy. Will repeat a.m. labs. Creatinine today slightly improved and is currently 1.24 -Type 2 diabetes mellitus -hypertension -hyperlipidemia -DVT prophylaxis with subcutaneous heparin -GI prophylaxis with Pepcid Plan: Recommend to continue current medications, management, and symptomatic treatment. Patient being maintained on colchicine showing significant improvement of the right foot swelling and redness. Will repeat a chest x-ray in the morning as patient continues to require 4-5 L of oxygen via nasal cannula. PT to evaluate the patient and encouraged the patient to increase activity as tolerated and get up and out of the bed. Further recommendations to follow based on clinical course.
[2019-09-13 17:04] LABS: Glucose,Whole Blood 283 mg/dL (75-99)
[2019-09-13 20:44] LABS: Glucose,Whole Blood 338 mg/dL (75-99)
[2019-09-13] MEDS: IPRATROPIUM-ALBUTEROL 3 ML NEB INHALATION PRN (21:14)
--- NOTE | 2019-09-13 23:00 | PN ---
PROGRESS NOTE DATE OF SERVICE: 09/13/2019 REASON FOR FOLLOWUP: 1. Pneumonia. 2. Right foot pain, likely gout. INTERVAL HISTORY: The patient is currently afebrile. The patient has been breathing comfortably. Denies having any chest pain. She did have some cough with occasional sputum. No nausea, no vomiting. No abdominal pain or diarrhea. PHYSICAL EXAMINATION: Blood pressure 110/68 with a pulse of 53, temperature of 98. She is 96% on room air. General description is a middle-aged female up in the bed in no distress. RESPIRATORY SYSTEM: Unlabored breathing. Occasional wheeze. HEART: S1, S2. Regular rate and rhythm. ABDOMEN: Soft. No tenderness. Right foot swelling has much improved. LABS: BUN of 41, creatinine is 1.24. Blood culture negative. No sputum collected. DIAGNOSTIC IMPRESSION AND PLAN: 1. Patient admitted to hospital predominantly with right foot pain which is likely related to the gout, being treated with steroids. 2. Patient with a fever and left lower lobe pneumonia, community-acquired; responded to the Rocephin and doxycycline; to finish therapy with a short course of oral Ceftin. Continue supportive care. MMODL / IJN: [id number] /
[2019-09-14] MEDS: LEVOTHYROXINE 100 MCG TAB PO SCH (06:20)
[2019-09-14 07:12] LABS: Glucose,Whole Blood 201 mg/dL (75-99)
[2019-09-14] MEDS: INSULIN ASPART (NovoLOG) 100 UNIT/ML VIAL SQ SCH ×4 (07:47→22:12)
[2019-09-14] MEDS: IPRATROPIUM-ALBUTEROL 3 ML NEB INHALATION SCH ×4 (07:52→19:58)
--- NOTE | 2019-09-14 08:21 | XR ---
EXAMINATION TYPE: XR chest 2V DATE OF EXAM: 09/14/2019 COMPARISON: 09/11/2019, 04/12/2019 TECHNIQUE: PA and lateral views submitted. HISTORY: Shortness of breath FINDINGS: Heart size mildly prominent there is an area of consolidation involving the right lower lobe with sma ll effusion. Left lung clear. Vague density in the right upper lobe is now noted. No pneumothorax. Hy pertrophic and degenerative change of the spine. There is a 1 cm nodule in the left retrocardiac joe on which may be posterior on the lateral view. IMPRESSION: 1. Right lower lobe infiltrate and small effusion appears new correlate for pneumonia. Additionally t here is patchy infiltrate in the right upper lobe which may represent area of multifocal pneumonia. F ollow to resolution to exclude underlying neoplasm. 2. There is a 1 cm nodule in the left retrocardiac region. Stable from the x-ray of 04/12/2019
[2019-09-14 08:38] LABS: Calcium 9.1 mg/dL (8.4-10.2); Potassium 5.8 mmol/L (3.5-5.1)
[2019-09-14] MEDS: DOXYCYCLINE 100 MG CAP PO SCH ×2 (08:39→22:12)
[2019-09-14] MEDS: PANTOPRAZOLE 40 MG TABLET PO SCH (08:39)
[2019-09-14] MEDS: ESCITALOPRAM 10 MG TAB PO SCH (08:39)
[2019-09-14] MEDS: amLODIPine 5 MG TAB PO SCH (08:39)
[2019-09-14] MEDS: DILTIAZEM CD 180 MG CAP.ER.24H PO SCH (08:39)
[2019-09-14] MEDS: COLCHICINE 0.6 MG EACH PO SCH (08:40)
[2019-09-14] MEDS ORDERED: SODIUM POLYSTYRENE SULFONATE 15 GM/60 ML BOTTLE PO STA (09:18)
[2019-09-14] MEDS: HEPARIN SODIUM,PORCINE 5,000 UNIT/ML 1 ML VIAL SQ SCH ×2 (09:34→15:55)
[2019-09-14] MEDS: methylPREDNISolone SOD SUCCI 40 MG/ML 1 ML VIAL IV SCH ×2 (09:34→22:12)
[2019-09-14] MEDS: NICOTINE 14MG/24HR PATCH TRANSDERM SCH (09:35)
[2019-09-14] MEDS: diphenhydrAMINE 2% CREAM 28.4 GM TUBE TOPICAL SCH ×2 (09:36→22:12)
[2019-09-14 11:44] LABS: Glucose,Whole Blood 204 mg/dL (75-99)
[2019-09-14] MEDS: SODIUM CHLORIDE 0.9% 1,000 ML IV SCH (12:09)
[2019-09-14] MEDS ORDERED: FUROSEMIDE 10 MG/ML 2 ML VIAL IV ONE (14:38)
[2019-09-14] MEDS ORDERED: SODIUM POLYSTYRENE SULFONATE 15 GM/60 ML BOTTLE PO ONE (15:31)
--- NOTE | 2019-09-14 15:46 | P.DS ---
Providers Date of admission: 09/11/19 02:43 Expected date of discharge: 09/14/19 Attending physician: Marlo Weaver Consults: 09/11/19 11:56 Consult Physician Routine Consulting Provider: Gab Rogers Consult Reason/Comments: fever, right toe swelling, r/O infection Do you want consulting provider notified?: Yes Primary care physician: Physician Nonstaff Hospital Course: Final diagnosis -acute on chronic hypercapnic respiratory failure secondary to COPD exacerbation -right great toe swelling: possibly gouty arthritis. -Continued nicotine use: Counseling was provided -Acute renal failure on chronic kidney disease stage III, acute renal failure prerenal azotemia, chronic kidney disease stage III probably secondary to diabetic nephropathy -Type 2 diabetes mellitus -hyperkalemia -hypertension -hyperlipidemia -DVT prophylaxis -GI prophylaxis Discharge disposition Patient Is being discharged in a stable condition with guarded prognosis to home and will follow-up with primary care provider out of [place] upon discharge. Patient will continue on a prednisone taper along with oral antibiotics in the form of Ceftin twice daily for the next 5 days. Total time taken is 35 minutes. History of present illness 59-year-old female came with complaints of swelling in the right foot and the patient has right toe swelling redness mild tenderness local is of temperature in the right toe. This is also complaining of cough not bringing up much patient still smokes about half a pack a day. Patient does have COPD he uses certain happy to his apartment patient denied any dysuria urinary urgency- related frequency patient had low-grade fever. Chest x-ray showed left lower lobe infiltrate. Patient is wheezing significantly. Urine is abnormal but patient doesn't have any UTI symptoms 09/14/2019 In follow-up today patient is currently on 2-1/2-3 L of oxygen and saturating well. Patient states that her breathing and shortness of breath have improved. Patient's potassium was slightly elevated at 5.8 and was given Kayexalate. Patient's repeat potassium is 5.6 and will be given another dose of Kayexalate along with a dose of IV Lasix and will have patient follow-up with primary care provider for repeat labs in a few days. Patient Is adamant about going home today and states she feels much better and is ready to go home. Patient's right foot swelling has improved and is back to baseline. She has no tenderness or redness noted. Currently patient denies any chest pain or palpitations. Patient is afebrile. She denies any nausea or vomiting and is tolerating diet. Patient's condition is stable and will be going home today. On exam vital signs are stable. Temp is 97.7F, pulse is 74, respirations are 18, blood pressure is 145/67, oxygen saturation is 95% on 2 L via nasal cannula. Cardio S1, S2 are present. Respiratory system shows diminished breath sounds at the bases with a few scattered wheezes noted. Abdomen is soft, obese, nontender. Nervous system shows no focal deficits. Please refer to medication reconciliation sheet for a list of medications. Patient Condition at Discharge: Stable Plan - Discharge Summary New Discharge Prescriptions: New Cefuroxime Axetil [Ceftin] 500 mg PO BID 5 Days #10 tab predniSONE 10 mg PO DIRECTED #30 tab Continue Omeprazole 20 mg PO DAILY@0800 Albuterol Inhaler [Ventolin Hfa Inhaler] 2 puff INHALATION RT-Q6H PRN PRN Reason: Shortness Of Breath metFORMIN HCL [Glucophage] 1,000 mg PO BID@0800,1999 Levothyroxine Sodium 200 mcg PO DAILY@0800 Diltiazem HCl [Cardizem CD] 360 mg PO DAILY@0800 amLODIPine [Norvasc] 5 mg PO DAILY@0800 Ipratropium-Albuterol Nebulize [Duoneb 0.5 mg-3 mg/3 ml Soln] 3 ml INHALATION RT-QID Fluticasone/Vilanterol [Breo Ellipta 100-25 Mcg Inhaler] 1 puff INHALATION RT-DAILY Carbamide Peroxide [Debrox Otic] 5 - 10 drops BOTH EARS BID PRN PRN Reason: WAX REMOVAL Fluticasone Nasal Kim [Flonase Nasal Kim] 1 spr EA NOSTRIL BID PRN PRN Reason: Allergy Symptoms glipiZIDE [Glucotrol] 10 mg PO DAILY@0800 Loperamide [Imodium] 2 mg PO QID PRN PRN Reason: Diarrhea Nicotine 14Mg/24Hr Patch [Habitrol] 1 patch TRANSDERM DAILY Escitalopram [Lexapro] 10 mg PO DAILY@0800 Discontinued Lisinopril 40 mg PO BID@0800,1999 Atorvastatin [Lipitor] 20 mg PO DAILY@0800 Discharge Medication List Albuterol Inhaler [Ventolin Hfa Inhaler] 2 puff INHALATION RT-Q6H PRN 04/12/19 [History] Diltiazem HCl [Cardizem CD] 360 mg PO DAILY@0804/12/19 [History] Fluticasone/Vilanterol [Breo Ellipta 100-25 Mcg Inhaler] 1 puff INHALATION RT- DAILY 04/12/19 [History] Ipratropium-Albuterol Nebulize [Duoneb 0.5 mg-3 mg/3 ml Soln] 3 ml INHALATION RT-QID 04/12/19 [History] Levothyroxine Sodium 200 mcg PO DAILY@79904/12/19 [History] Omeprazole 20 mg PO DAILY@79904/12/19 [History] amLODIPine [Norvasc] 5 mg PO DAILY@79904/12/19 [History] metFORMIN HCL [Glucophage] 1,000 mg PO BID@0800,199904/12/19 [History] Carbamide Peroxide [Debrox Otic] 5 - 10 drops BOTH EARS BID PRN 09/11/19 [History] Escitalopram [Lexapro] 10 mg PO DAILY@0800 09/11/19 [History] Fluticasone Nasal Kim [Flonase Nasal Kim] 1 spr EA NOSTRIL BID PRN 09/11/19 [History] Loperamide [Imodium] 2 mg PO QID PRN 09/11/19 [History] Nicotine 14Mg/24Hr Patch [Habitrol] 1 patch TRANSDERM DAILY 09/11/19 [History] glipiZIDE [Glucotrol] 10 mg PO DAILY@0809/11/19 [History] Cefuroxime Axetil [Ceftin] 500 mg PO BID 5 Days #10 tab 09/14/19 [Rx] predniSONE 10 mg PO DIRECTED #30 tab 09/14/19 [Rx] Follow up Appointment(s)/Referral(s): Dayday Ludwig [NON-STAFF] - Ambulatory/Diagnostic Orders: Basic Metabolic Panel [LAB.AMB] Time Frame: 3 Days, Location: None Selected Activity/Diet/Wound Care/Special Instructions: PCP: Dr. Ankur Barker from [facility] - [phone] [facility] will deliver rollator to bedside before discharge. Activity Limited until follow-up Continue with low potassium heart healthy diet Continue with antibiotics until finished Continue with a prednisone taper Repeat labs in 3 days to monitor potassium Discharge Disposition: HOME WITH HOME HEALTH SERVICES
[2019-09-14 16:40] LABS: Glucose,Whole Blood 267 mg/dL (75-99)
--- NOTE | 2019-09-14 16:40 | CDI ---
Documentation Clarification Form Date: 09/14/2019 04:08:36 PM From: Colleen Hughes RN, CCDS Admit Date: 09/11/2019 02:43:00 AM Patient Name: Lillie Santana Visit Number: [id number] Discharge Date: ATTENTION: The Clinical Documentation Specialists (CDI) and [facility] Coding Staff appreciate your assistance in clarifying documentation. Please respond to the clarification below the line at the bottom and electronically sign. The CDI & [facility] Coding staff will review the response and follow-up if needed. Please note: Queries are made part of the Legal Health Record. If you have any questions, please contact the author of this message via ITS. Dr. Marlo Weaver The diagnosis pneumonia was documented in the H&P, "I cannot completely rule out pneumonia. Patient has a mild infiltrate the left lower lobe". but is not noted in subsequent documentation. History/Risk Factors: COPD, Current every day smoker Clinical Indicators: 09/11/19 presents to ER for evaluation of right foot pain and swelling. Patient states she had chills and feverish. She is home O2 dependent. States she has a chronic cough with sputum production. She denied any increased shortness of breath, 09/11 ER evaluation respiratory exam: wheezes (Coarse expiratory wheezing noted throughout the posterior lung field) 2/ Vitas sign on presentation Temp. 100.5, pulse 94 respirations 21 blood pressure 132/75, pulse ox 92 % on room air. 09/11 Labs: WBC 12.9 NA+ 136, CR 1.46 09/11 Chest x-ray: Left lower lobe infiltrate 09/13/19 ID (Dr. Grubbsed: "Patient with fever and left lower lobe pneumonia, community-acquired; respond to Rocephin and doxycycline". Treatment: Duoneb 0.5 mg in 3ml Inhalation Q2 PRN Rocephin 1 gm IVPD Q24 HRS Vibromycin 100 mg PO BID Solu-medrol 40 IV Q 12 HRS Monitor O2 sat's (titrate) Please clarify if the left lower lobe pneumonia was Present/active this admission Treated and resolved this admission Ruled out Other, please specify Clinically unable to determine (Last Query Form Revision: April 2019) NOT MY DOCUMENTATION MTDD
[2019-09-14] MEDS ORDERED: INSULIN ASPART (NovoLOG) 100 UNIT/ML VIAL SQ ONE (17:16)
[2019-09-14] MEDS ORDERED: MAGNESIUM HYDROXIDE 2,400 MG/10 ML CUP PO PRN (17:16)
[2019-09-14 20:19] LABS: Glucose,Whole Blood 262 mg/dL (75-99)
--- NOTE | 2019-09-14 20:28 | PN ---
PROGRESS NOTE DATE OF SERVICE: 09/14/2019 REASON FOR FOLLOWUP: Pneumonia, community-acquired. INTERVAL HISTORY: The patient is currently afebrile. The patient has been breathing comfortably. Denies having any chest pain. Occasional cough. No nausea or vomiting or abdominal pain. Her pain to the right foot is currently controlled. PHYSICAL EXAMINATION: Blood pressure 145/67 with a pulse of 74, temperature 97.7. She is 95% on 2 L nasal cannula. General description is a middle-aged female lying in bed in no distress. RESPIRATORY SYSTEM: Unlabored breathing. Coarse breath sounds at the base. No wheeze. HEART: S1, S2. Regular rate and rhythm. ABDOMEN: Soft. No tenderness. LABS/IMAGING: X-ray of the right lower lobe: Pneumonia. Creatinine is 1.15. Blood culture negative. She was unable to provide any sputum. DIAGNOSTIC IMPRESSION AND PLAN: 1. Patient admitted to hospital with a fever; source likely right lower lobe pneumonia, likely community-acquired, as the patient clinically is responding to the Rocephin and . She will finish therapy with oral Ceftin. 2. Right foot pain, likely gout, being treated with steroids. Continue supportive care. MMODL / IJN: [id number] /
[2019-09-14 21:30] LABS: Glucose,Whole Blood 262 mg/dL (75-99)
[2019-09-15] MEDS: HEPARIN SODIUM,PORCINE 5,000 UNIT/ML 1 ML VIAL SQ SCH ×3 (00:37→15:55)
[2019-09-15] MEDS: LEVOTHYROXINE 100 MCG TAB PO SCH (06:02)
[2019-09-15 06:45] LABS: Glucose,Whole Blood 196 mg/dL (75-99)
[2019-09-15] MEDS: amLODIPine 5 MG TAB PO SCH (07:33)
[2019-09-15] MEDS: PANTOPRAZOLE 40 MG TABLET PO SCH (07:33)
[2019-09-15] MEDS: methylPREDNISolone SOD SUCCI 40 MG/ML 1 ML VIAL IV SCH ×2 (07:34→07:44)
[2019-09-15] MEDS: INSULIN ASPART (NovoLOG) 100 UNIT/ML VIAL SQ SCH ×2 (07:34→12:13)
[2019-09-15] MEDS: DILTIAZEM CD 180 MG CAP.ER.24H PO SCH (07:35)
[2019-09-15] MEDS: ESCITALOPRAM 10 MG TAB PO SCH (07:35)
[2019-09-15] MEDS: COLCHICINE 0.6 MG EACH PO SCH (07:35)
[2019-09-15] MEDS: DOXYCYCLINE 100 MG CAP PO SCH (07:36)
[2019-09-15] MEDS: NICOTINE 14MG/24HR PATCH TRANSDERM SCH (07:36)
[2019-09-15] MEDS: IPRATROPIUM-ALBUTEROL 3 ML NEB INHALATION SCH ×3 (08:31→15:58)
[2019-09-15 09:03] VITALS: BP 139/83; RESP 17; TEMP 97.9
[2019-09-15 11:38] VITALS: PULSE 80
[2019-09-15 11:59] LABS: Glucose,Whole Blood 261 mg/dL (75-99)
[2019-09-15] MEDS: diphenhydrAMINE 2% CREAM 28.4 GM TUBE TOPICAL SCH (12:15)
--- NOTE | 2019-09-15 13:35 | PN ---
PROGRESS NOTE DATE OF SERVICE: 09/15/2019 REASON FOR FOLLOWUP: Pneumonia. INTERVAL HISTORY: The patient is currently afebrile. Patient has been breathing more comfortably. The patient denies having any chest pain. She did have some cough not bringing up any sputum. No nausea, no vomiting. No abdominal pain. No diarrhea. PHYSICAL EXAMINATION: Blood pressure 139/83 with a pulse of 76, temperature 97.9. She is 91% on 3 L nasal cannula. General description is a middle-aged female lying in bed in no distress. RESPIRATORY SYSTEM: Unlabored breathing, decreased intensity of breath sounds. No wheeze. HEART: S1, S2. Regular rate and rhythm. ABDOMEN: Soft, no tenderness. LABS: No new labs have been obtained today. Blood and urine cultures have been negative. No sputum has been collected. DIAGNOSTIC IMPRESSION AND PLAN: 1. Patient presented to the hospital with a fever, shortness of breath and cough, evidence of pneumonia likely community acquired clinically responding to the Rocephin and doxycycline with the plan to finish therapy with oral Ceftin. Monitor clinical course closely. 2. Right foot pain, likely acute gouty arthritis responding to the steroids. Continue supportive care. MMODL / IJN: [id number] /
--- NOTE | 2019-09-15 23:36 | P.PN ---
Subjective Progress Note Date: 09/15/19 Principal diagnosis: COPD exacerbation. Ms. Santana is a 59-year-old female with history of CKD, hypertension, hyperlipidemia, morbid obesity with BMI of 41 admitted to the hospital for acute on chronic hypercapnic respiratory failure due to COPD exacerbation. Patient was discharged yesterday but as her potassium was high at 5.6 the discharge was held. Overnight no active issues reported by the nursing staff. Patient received a dose of Kayexalate and her potassium repeat for this morning is 4.5. Patient states that her breathing is back to her baseline and she is on 2.5 L of oxygen at home and she is ready to go home. Patient denies having any other active complaints. Objective - Vital Signs Vital signs: Vital Signs Temp 97.9 F 09/15/19 08:08 Pulse 80 09/15/19 11:38 Resp 17 09/15/19 08:08 BP 139/83 09/15/19 08:08 Pulse Ox 94 L 09/15/19 08:33 Intake & Output 09/14/19 09/15/19 09/15/19 18:59 06:59 18:59 Intake Total 200 860 Balance 200 860 Intake: Oral 200 860 Other: Voiding Method Bedside Commode Bedside Commode Incontinent Incontinent # Voids 1 2 # Bowel Movements 3 - Exam GEN. APPEARANCE: morbidly obese , alert, in no apparent distress RESPIRATORY EXAM: Decreased bilateral air entry. Mild wheezes bilaterally. No crackles CARDIOVASCULAR EXAM: regular rate, normal rhythm, normal heart sounds. EXTREMITIES EXAM: mild edema NEUROLOGICAL EXAM: alert, oriented X3 PSYCHIATRIC EXAM: normal affect, normal mood SKIN EXAM: warm, dry, intact, normal color. Absent: rash - Labs CBC & Chem 7: 09/12/19 07:04 09/15/19 09:50 Labs: Abnormal Lab Results - Last 24 Hours (Table) 09/14/19 09/14/19 09/15/19 Range/Units 20:18 21:28 06:43 POC Glucose (mg/dL) 262 H 262 H 196 H (75-99) mg/dL 09/15/19 Range/Units 11:57 POC Glucose (mg/dL) 261 H (75-99) mg/dL Microbiology - Last 24 Hours (Table) 09/11/19 00:20 Blood Culture - Preliminary Blood No Growth after 96 hours Assessment and Plan Assessment: ASSESSMENT Acute on chronic hypercapnic respiratory failure Right great toe gouty attack Acute kidney injury on CKD stage III Type 2 diabetes mellitus Hypertension Hyperlipidemia Morbid obesity with BMI of 41 PLAN: Patient's repeat potassium was 4.5 today. Patient's discharge medications have already been done yesterday. Patient is advised to follow-up with her PCP for repeat BMP. She has been discharged home.
--- NOTE | 2019-09-19 09:57 | CDI ---
Documentation Clarification Form Date: 09/19/2019 09:45:35 AM From: Colleen Hughes RN, CCDS Admit Date: 09/11/2019 02:43:00 AM Patient Name: Lillie Santana Visit Number: [id number] Discharge Date: 09/15/2019 05:27:00 PM ATTENTION: The Clinical Documentation Specialists (CDI) and [facility] Coding Staff appreciate your assistance in clarifying documentation. Please respond to the clarification below the line at the bottom and electronically sign. The CDI & [facility] Coding staff will review the response and follow-up if needed. Please note: Queries are made part of the Legal Health Record. If you have any questions, please contact the author of this message via ITS. Dr. Chantell Capps The diagnosis pneumonia was documented in the H&P, "I cannot completely rule out pneumonia. Patient has a mild infiltrate the left lower lobe". but is not noted in subsequent documentation. History/Risk Factors: COPD, Current every day smoker Clinical Indicators: 09/11/19 presents to ER for evaluation of right foot pain and swelling. patient states she had chills and feverish. She is home O2 dependent. States she has a chronic cough with sputum production. She denied any increased shortness of breath, 09/11/ER evaluation respiratory exam: wheezes (Coarse expiratory wheezing noted throughout the posterior lung field) 09/10/19 Vitas sign on presentation Temp. 100.5, pulse 94 respirations 21 blood pressure 132/75, pulse ox 92 % on room air. 09/11/ Labs: WBC 12.9 NA+ 136, CR 1.46 09/11/19 Chest x-ray: Left lower lobe infiltrate 09/13/19 ID (Dr. Grubbsed: "Patient with fever and left lower lobe pneumonia, community-acquired; respond to Rocephin and doxycycline". Treatment: Duoneb 0.5 mg in 3ml Inhalation Q2 PRN Rocephin 1 gm IVPD Q24 HRS Vibromycin 100 mg PO BID Solu-medrol 40 IV Q 12 HRS Monitor O2 sat's (titrate) Please clarify if the left lower lobe pneumonia was Present/active this admission Treated and resolved this admission Ruled out Other, please specify Clinically unable to determine (Last Query Form Revision: April 2019) Present/active this admission MTDD
== END 2019-09-15 17:27 | disposition home health service (06) | DRG 193 ==
LOC: EC 23:06 → SUPCPDRO 23:06 → 4SSUR 09-11 02:43
PROVIDERS: ADMIT Hospitalist; ATTEND Hospitalist
DX: J18.9 Pneumonia, unspecified organism (principal); J96.22 Acute and chronic respiratory failure with hypercapnia; J44.1 Chronic obstructive pulmonary disease with (acute) exacerbation; Z68.41 Body mass index [BMI] 40.0-44.9, adult; N17.9 Acute kidney failure, unspecified; J44.0 Chronic obstructive pulmonary disease with (acute) lower respiratory infection; M10.9 Gout, unspecified; E11.22 Type 2 diabetes mellitus with diabetic chronic kidney disease; E66.01 Morbid (severe) obesity due to excess calories; E78.5 Hyperlipidemia, unspecified; E87.5 Hyperkalemia; F17.210 Nicotine dependence, cigarettes, uncomplicated; N18.3 Chronic kidney disease, stage 3 (moderate); I12.9 Hypertensive chronic kidney disease with stage 1 through stage 4 chronic kidney disease, or unspecified chronic kidney disease; Z79.52 Long term (current) use of systemic steroids; Z79.84 Long term (current) use of oral hypoglycemic drugs; Z79.890 Hormone replacement therapy; Z79.899 Other long term (current) drug therapy; Z99.81 Dependence on supplemental oxygen; Z88.6 Allergy status to analgesic agent; Z98.890 Other specified postprocedural states
CPT/HCPCS: 36415; 71046; 80048; 80053; 81001; 83605; 84132; 84145; 84550; 85025; 86140; 87040; 87086; 93005; 94640; 94760; 96361; 96365; 96375; 99285

== ENCOUNTER 2019-10-24 17:04 | Inpatient (IN) | payer MEDICARE, OTHER ==
[2019-10-24] MEDS ORDERED: SODIUM CHLORIDE 0.9% 1,000 ML IV STA (17:32)
[2019-10-24 17:44] LABS: Basophils % (A) 0 %; Eosinophils # (A) 0.2 k/uL (0-0.7); Eosinophils % (A) 1 %; HCT 45.2 % (34.0-46.0); HGB 14.7 gm/dL (11.4-16.0); Lymphocytes # (A) 1.7 k/uL (1.0-4.8); Lymphocytes % (A) 9 %; MCH 26.4 pg (25.0-35.0); MCHC 32.4 g/dL (31.0-37.0); Monocytes # (A) 0.4 k/uL (0-1.0); Monocytes % (A) 2 %; Neutrophils # (A) 15.5 k/uL (1.3-7.7); Neutrophils % (A) 86 %; Platelet Count 297 k/uL (150-450); RBC 5.55 m/uL (3.80-5.40); RDW 15.5 % (11.5-15.5)
[2019-10-24 17:55] LABS: Albumin 3.4 g/dL (3.5-5.0); Calcium 8.7 mg/dL (8.4-10.2); Potassium 4.2 mmol/L (3.5-5.1); Total Bilirubin 0.6 mg/dL (0.2-1.3); Total Protein 6.3 g/dL (6.3-8.2)
[2019-10-24] MEDS ORDERED: MORPHINE SULFATE 4 MG/ML SYRINGE IVP STA (18:27)
[2019-10-24] MEDS ORDERED: ONDANSETRON 4 MG/2 ML VIAL IVP STA (18:27)
[2019-10-24 18:28] LABS: MCV 81.5 fL (80.0-100.0)
--- NOTE | 2019-10-24 19:02 | ED ---
Nausea/Vomiting/Diarrhea HPI - General Chief complaint: Nausea/Vomiting/Diarrhea Stated complaint: NVD Time Seen by Provider: 10/24/19 17:10 Source: EMS Mode of arrival: EMS Limitations: no limitations - History of Present Illness Initial comments: The patient is a 59-year-old female past history of COPD currently on 2.5 liters of home O2, diabetes and hypertension who presents to emergency room with reported nausea, vomiting and diarrhea. Symptoms started on Tuesday after she ate [place] food. States that other people did eat the same food and are not sick. He states it was almost immediately after that she began having vomiting with diarrhea. The vomiting has since stopped however she continues to have brown, loose watery stools. She denies melenic stools or hematochezia. No fevers or chills. States that she has not eaten since Tuesday. She has been unable to take any of her medications including her insulin. She denies a cough or shortness of breath worse than her baseline. States her pulse ox on 2 L is normally around 96%. She denies any chest pain. No back or flank pain. Admits to increased frequency of urination. Denies dysuria. No recent antibiotic use or travel. No history of C. diff. Does report a history of colitis and diverticulitis. Patient has pain in her left lower quadrant. She has not taken any medications at home for symptoms. There are no alleviating, precipitating or modifying factors - Related Data Home Medications Medication Instructions Recorded Confirmed Albuterol Inhaler [Ventolin Hfa 2 puff INHALATION RT-Q6H PRN 04/12/19 10/24/19 Inhaler] Diltiazem HCl [Cardizem CD] 360 mg PO DAILY@79904/12/19 10/24/19 Ipratropium-Albuterol Nebulize 3 ml INHALATION RT-QID 04/12/19 10/24/19 [Duoneb 0.5 mg-3 mg/3 ml Soln] Levothyroxine Sodium 200 mcg PO DAILY@79904/12/19 10/24/19 Omeprazole 20 mg PO DAILY@79904/12/19 10/24/19 metFORMIN HCL [Glucophage] 1,000 mg PO BID@08,199904/12/19 10/24/19 Fluticasone Nasal [place] [Flonase 1 spray EA NOSTRIL BID PRN 09/11/19 10/24/19 Nasal [place]] Loperamide [Imodium] 2 mg PO QID PRN 09/11/19 10/24/19 glipiZIDE [Glucotrol] 10 mg PO DAILY@0800 09/11/19 10/24/19 Fenofibrate Nanocrystallized 145 mg PO DAILY 10/24/19 10/24/19 [Fenofibrate] Tiotropium 18 Mcg/Puff [Spiriva] 1 cap INHALATION RT-DAILY 10/24/19 10/24/19 Previous Rx's Medication Instructions Recorded amLODIPine [Norvasc] 5 mg PO DAILY #30 tab 09/15/19 Cefdinir [Omnicef] 300 mg PO BID 7 Days #14 cap 10/28/19 Lactobacillus Acidoph & [place] 1 each PO QID #30 packet 10/28/19 [Lactinex] metroNIDAZOLE [Flagyl] 500 mg PO TID #21 tab 10/28/19 predniSONE [Deltasone] 40 mg PO DAILY #30 tab 10/28/19 Allergies Allergy/AdvReac Type Severity Reaction Status Date / Time NSAIDS (Non-Steroidal AdvReac ULCERS Verified 10/24/19 20:42 Anti-Inflamma Review of Systems ROS Statement: Those systems with pertinent positive or pertinent negative responses have been documented in the HPI. ROS Other: All systems not noted in ROS Statement are negative. Past Medical History Past Medical History: Asthma, COPD, Diabetes Mellitus, Hypertension, Thyroid Disorder Additional Past Medical History / Comment(s): Hernia History of Any Multi-Drug Resistant Organisms: None Reported Past Surgical History: Orthopedic Surgery Additional Past Surgical History / Comment(s): teeth extraction 2 weeks ago total top 5-6 teeth total. Past Psychological History: No Psychological Hx Reported Smoking Status: Current every day smoker Past Alcohol Use History: None Reported Past Drug Use History: None Reported - Past Family History Father Family Medical History: Liver Disease Mother Family Medical History: COPD, Diabetes Mellitus, Hypertension General Exam Limitations: no limitations General appearance: alert, in no apparent distress Head exam: Present: atraumatic, normocephalic, normal inspection Eye exam: Present: normal appearance, PERRL, EOMI. Absent: scleral icterus, conjunctival injection, periorbital swelling ENT exam: Present: mucous membranes dry Neck exam: Present: normal inspection. Absent: tenderness, meningismus, lymphadenopathy Respiratory exam: Present: normal lung sounds bilaterally. Absent: respiratory distress, wheezes, rales, rhonchi, stridor Cardiovascular Exam: Present: regular rate, normal rhythm, normal heart sounds. Absent: systolic murmur, diastolic murmur, rubs, gallop, clicks GI/Abdominal exam: Present: soft, tenderness (LLQ ), normal bowel sounds. Absent: distended, guarding, rebound, rigid Extremities exam: Present: full ROM, normal capillary refill, other (lower extremities are covered in stool). Absent: tenderness, pedal edema, joint swelling, calf tenderness Back exam: Present: normal inspection Neurological exam: Present: alert, oriented X3, CN II-XII intact Psychiatric exam: Present: normal affect, normal mood Skin exam: Present: warm, dry, intact, normal color. Absent: rash Course Vital Signs 10/24/19 10/24/19 10/24/19 17:08 20:26 21:30 Temperature 97.9 F 96.2 F L Pulse Rate 88 85 Pulse Rate [ 111 H Pulse Oximetery ] Respiratory 18 18 20 Rate Blood Pressure 179/78 150/93 Blood Pressure 132/74 [Left Arm] O2 Sat by Pulse 90 L 94 L 96 Oximetry Medical Decision Making - Medical Decision Making Upon arrival the patient was placed in room 21. A thorough history and physical exam was performed. Pulse ox noted to be low at 90. Patient states she normally sat 86% on 2-1/2 L. Peripheral IV is established. She is given a liter bolus of normal saline. She is also given 4 mg of Zofran to the IV. Patient is requesting prescription for pain and was given 4 mg of morphine. Laboratory studies were conducted. They demonstrate a white blood cell count of 18. Creatinine 1.3. BUN 70. Glucose 172. Anion gap of 12. Lactic acid 2.3. UA shows small blood with rare mucous. CT of the patient's abdomen and pelvis demonstrates wall thickening involving the left colon, distal transverse colon and splenic flexure suggestive of nonspecific colitis. Adjacent mesenteric edema. Sigmoid diverticulosis without diverticulitis. Concern for right lower lobe pneumonia. The patient does not demonstrate any signs of clinical pneumonia. She denies a cough or shortness of breath. I discussed diagnosis, differential treatment options. We did complete a 12-lead EKG which demonstrat es a prolonged QT therefore I will hold off on any further Zofran. She also has a bifascicular block therefore I do add on a magnesium level and a troponin level. Blood cultures obtained patient was initiated on Zosyn. I recommended hospital admission for continued fluid hydration and antiemetics. The patient agreed to this. I called and discussed the case with Dr. Bee who accepted admission. Patient was placed on 100 mL of normal saline per hour. She is currently awaiting a bed on the floor - Lab Data Result diagrams: 10/28/19 06:15 10/28/19 06:15 Lab Results 10/24/19 10/24/19 10/24/19 Range/Units 17:35 17:35 17:35 WBC 18.0 H (3.8-10.6) k/uL RBC 5.55 H (3.80-5.40) m/uL Hgb 14.7 (11.4-16.0) gm/dL Hct 45.2 (34.0-46.0) % MCV 81.5 D (80.0-100.0) fL MCH 26.4 (25.0-35.0) pg MCHC 32.4 (31.0-37.0) g/dL RDW 15.5 (11.5-15.5) % Plt Count 297 (150-450) k/uL Neutrophils % 86 % Lymphocytes % 9 % Monocytes % 2 % Eosinophils % 1 % Basophils % 0 % Neutrophils # 15.5 H (1.3-7.7) k/uL Lymphocytes # 1.7 (1.0-4.8) k/uL Monocytes # 0.4 (0-1.0) k/uL Eosinophils # 0.2 (0-0.7) k/uL Basophils # 0.0 (0-0.2) k/uL Sodium 134 L (137-145) mmol/L Potassium 4.2 (3.5-5.1) mmol/L Chloride 99 (98-107) mmol/L Carbon Dioxide 23 (22-30) mmol/L Anion Gap 12 mmol/L BUN 70 H (7-17) mg/dL Creatinine 1.31 H (0.52-1.04) mg/dL Est GFR (CKD-EPI)AfAm 51 (>60 ml/min/1.73 sqM) Est GFR (CKD-EPI)NonAf 45 (>60 ml/min/1.73 sqM) Glucose 172 H (74-99) mg/dL Lactic Ac Sepsis Rflx Plasma Lactic Acid Angus 2.3 H* (0.7-2.0) mmol/L Calcium 8.7 (8.4-10.2) mg/dL Magnesium (1.6-2.3) mg/dL Total Bilirubin 0.6 (0.2-1.3) mg/dL AST 24 (14-36) U/L ALT 14 (4-34) U/L Alkaline Phosphatase 104 (38-126) U/L Troponin I (0.000-0.034) ng/mL Total Protein 6.3 (6.3-8.2) g/dL Albumin 3.4 L (3.5-5.0) g/dL Lipase 17 L (23-300) U/L Urine Color Urine Appearance (Clear) Urine pH (5.0-8.0) Ur Specific [place] (1.001-1.035) Urine Protein (Negative) Urine Glucose (UA) (Negative) Urine Ketones (Negative) Urine Blood (Negative) Urine Nitrite (Negative) Urine Bilirubin (Negative) Urine Urobilinogen (<2.0) mg/dL Ur Leukocyte Esterase (Negative) Urine RBC (0-5) /hpf Urine WBC (0-5) /hpf Ur Squamous Epith Cells (0-4) /hpf Urine Mucus (None) /hpf 10/24/19 10/24/19 10/24/19 Range/Units 17:35 17:35 18:52 WBC (3.8-10.6) k/uL RBC (3.80-5.40) m/uL Hgb (11.4-16.0) gm/dL Hct (34.0-46.0) % MCV (80.0-100.0) fL MCH (25.0-35.0) pg MCHC (31.0-37.0) g/dL RDW (11.5-15.5) % Plt Count (150-450) k/uL Neutrophils % % Lymphocytes % % Monocytes % % Eosinophils % % Basophils % % Neutrophils # (1.3-7.7) k/uL Lymphocytes # (1.0-4.8) k/uL Monocytes # (0-1.0) k/uL Eosinophils # (0-0.7) k/uL Basophils # (0-0.2) k/uL Sodium (137-145) mmol/L Potassium (3.5-5.1) mmol/L Chloride (98-107) mmol/L Carbon Dioxide (22-30) mmol/L Anion Gap mmol/L BUN (7-17) mg/dL Creatinine (0.52-1.04) mg/dL Est GFR (CKD-EPI)AfAm (>60 ml/min/1.73 sqM) Est GFR (CKD-EPI)NonAf (>60 ml/min/1.73 sqM) Glucose (74-99) mg/dL Lactic Ac Sepsis Rflx Y Plasma Lactic Acid [place] (0.7-2.0) mmol/L Calcium (8.4-10.2) mg/dL Magnesium 1.8 (1.6-2.3) mg/dL Total Bilirubin (0.2-1.3) mg/dL AST (14-36) U/L ALT (4-34) U/L Alkaline Phosphatase (38-126) U/L Troponin I <0.012 (0.000-0.034) ng/mL Total Protein (6.3-8.2) g/dL Albumin (3.5-5.0) g/dL Lipase (23-300) U/L Urine Color Urine Appearance (Clear) Urine pH (5.0-8.0) Ur Specific [place] (1.001-1.035) Urine Protein (Negative) Urine Glucose (UA) (Negative) Urine Ketones (Negative) Urine Blood (Negative) Urine Nitrite (Negative) Urine Bilirubin (Negative) Urine Urobilinogen (<2.0) mg/dL Ur Leukocyte Esterase (Negative) Urine RBC (0-5) /hpf Urine WBC (0-5) /hpf Ur Squamous Epith Cells (0-4) /hpf Urine Mucus (None) /hpf 10/24/19 Range/Units 19:59 WBC (3.8-10.6) k/uL RBC (3.80-5.40) m/uL Hgb (11.4-16.0) gm/dL Hct (34.0-46.0) % MCV (80.0-100.0) fL MCH (25.0-35.0) pg MCHC (31.0-37.0) g/dL RDW (11.5-15.5) % Plt Count (150-450) k/uL Neutrophils % % Lymphocytes % % Monocytes % % Eosinophils % % Basophils % % Neutrophils # (1.3-7.7) k/uL Lymphocytes # (1.0-4.8) k/uL Monocytes # (0-1.0) k/uL Eosinophils # (0-0.7) k/uL Basophils # (0-0.2) k/uL Sodium (137-145) mmol/L Potassium (3.5-5.1) mmol/L Chloride (98-107) mmol/L Carbon Dioxide (22-30) mmol/L Anion Gap mmol/L BUN (7-17) mg/dL Creatinine (0.52-1.04) mg/dL Est GFR (CKD-EPI)AfAm (>60 ml/min/1.73 sqM) Est GFR (CKD-EPI)NonAf (>60 ml/min/1.73 sqM) Glucose (74-99) mg/dL Lactic Ac Sepsis Rflx Plasma Lactic Acid [place] (0.7-2.0) mmol/L Calcium (8.4-10.2) mg/dL Magnesium (1.6-2.3) mg/dL Total Bilirubin (0.2-1.3) mg/dL AST (14-36) U/L ALT (4-34) U/L Alkaline Phosphatase (38-126) U/L Troponin I (0.000-0.034) ng/mL Total Protein (6.3-8.2) g/dL Albumin (3.5-5.0) g/dL Lipase (23-300) U/L Urine Color Yellow Urine Appearance Clear (Clear) Urine pH 6.0 (5.0-8.0) Ur Specific [place] 1.045 H (1.001-1.035) Urine Protein 1+ H (Negative) Urine Glucose (UA) Negative (Negative) Urine Ketones Negative (Negative) Urine Blood Small H (Negative) Urine Nitrite Negative (Negative) Urine Bilirubin Negative (Negative) Urine Urobilinogen <2.0 (<2.0) mg/dL Ur Leukocyte Esterase Negative (Negative) Urine RBC 2 (0-5) /hpf Urine WBC 2 (0-5) /hpf Ur Squamous Epith Cells 4 (0-4) /hpf Urine Mucus Rare H (None) /hpf - EKG Data EKG Comments: EKG demonstrates a sinus tachycardia with a ventricular rate of 111. Occasional PVCs. WA interval 144. QRS 144. QTC of 514. Right bundle branch block. Left posterior fascicular block. EKG is compared to previous and is changed. Disposition Clinical Impression: Community acquired pneumonia, Acute colitis, Abdominal pain, Nausea and vomiting, Diarrhea Disposition: ADMITTED IP TO THIS HOSP Condition: Stable Is patient prescribed a controlled substance at d/c from ED?: No Decision to Admit Reason: Admit from EC Decision Date: 10/24/19 Decision Time: 20:28
--- NOTE | 2019-10-24 19:42 | CT ---
EXAMINATION TYPE: CT abdomen pelvis w con DATE OF EXAM: 10/24/2019 COMPARISON: None HISTORY: Left sided abdominal pain. N/V/D. History of colitis and diverticulitis. CT DLP: 1986.1 mGycm Automated exposure control for dose reduction was used. CONTRAST: Performed with IV Contrast, patient injected with 80 mL of Isovue 300. Multiple axial sections were obtained from the diaphragm to the floor the pelvis with intravenous con trast. There is some infiltrate and atelectasis right lower lobe. There is minimal atelectasis left lung bas e. Heart size is normal. There is no pericardial effusion. Stomach is intact. There are clips from ch olecystectomy. The bile ducts are not dilated. Liver shows no focal defect. There is no evidence of p ancreatic mass. Spleen is intact. 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 There is no hydronephrosis. There is 1 cm cortical cyst anterior left kidney. Ureters are not dilated . There is no retroperitoneal adenopathy. Abdominal aorta is atheromatous. There is umbilical hernia that contains fat and measures 4.5 x 5 cm. There is no inguinal hernia. Bladder distends smoothly. Ut erus is anteverted. There is some free fluid in the pelvis. Lumbar vertebra have normal alignment. Di sc spaces are fairly normal. Bony pelvis is intact. There is some hypertrophic spurring of the hip rachel ints. There is wall thickening involving the distal transverse colon and the splenic flexure and the descen ding colon. There is mild large bowel mesenteric fat stranding on the left side of the abdomen. There are multiple diverticula of the sigmoid colon. There is no sign of diverticulitis. There is no sign of thickened appendix. There is no evidence of a bowel obstruction. There is no free air. IMPRESSION: Wall thickening involving the left colon involving distal transverse colon and splenic flexure and de scending colon suggestive of a nonspecific colitis. There is adjacent large bowel mesenteric edema. Sigmoid diverticulosis without diverticulitis. Mild free fluid in the pelvis. Umbilical hernia. Right lower lobe pneumonia and atelectasis.
[2019-10-24 20:07] LABS: Appearance,Urine Clear (Clear); Bilirubin,Urine Negative (Negative); Blood,Urine Small (Negative); Color,Urine Yellow; Glucose,Urine (UA) Negative (Negative); Ketones,Urine Negative (Negative); Leukocyte Esterase,Urine Negative (Negative); Mucus,Urine Rare /hpf; Nitrite,Urine Negative (Negative); Protein,Urine 1+ (Negative); RBC,Urine 2 /hpf (0-5); Specific Gravity,Urine 1.045 (1.001-1.035); Squamous Epithelial Cell,Urine 4 /hpf (0-4); Urobilinogen,Urine <2.0 mg/dL (<2.0); WBC,Urine 2 /hpf (0-5)
[2019-10-24] MEDS ORDERED: PIPERACILLIN-TAZOBACTAM 3.375 GM in SODIUM CHLORIDE 0.9% 100 ML IVPB STA (20:09)
[2019-10-24] MEDS ORDERED: NALOXONE 0.4 MG/ML 1 ML VIAL IV PRN (20:28)
[2019-10-24 21:30] LABS: Glucose,Whole Blood 156 mg/dL (75-99)
[2019-10-24] MEDS: SODIUM CHLORIDE 0.9% 1,000 ML IV SCH (23:03)
[2019-10-24] MEDS: INSULIN ASPART (NovoLOG) 100 UNIT/ML VIAL SQ SCH (23:04)
[2019-10-24] MEDS: MORPHINE SULFATE 4 MG/ML SYRINGE IVP PRN (23:37)
[2019-10-24] MEDS: METOCLOPRAMIDE 5 MG TAB PO PRN (23:38)
[2019-10-25] MEDS ORDERED: IPRATROPIUM-ALBUTEROL 3 ML NEB INHALATION PRN (02:57)
--- NOTE | 2019-10-25 02:59 | P.HPIM ---
History of Present Illness H&P Date: 10/25/19 The patient is a 59-year-old female with a PMH of type 2 diabetes mellitus, hypertension, COPD with chronic hypoxic respiratory failure on 2.5 L NC O2 at home continuously, and hypothyroidism who presented to the ED with complaints of abdominal pain, diarrhea, nausea, and vomiting. The patient reported that she recently had some [place] food over the weekend, and that soon after developed her vomiting and diarrhea. She notes that her abdominal pain is located in the left lower quadrant, sharp in nature, radiating throughout her abdomen, with no clear alleviating or exacerbating features, 6 out of 10 in intensity. She reports multiple watery stools with no blood. She reports that due to her significant nausea, she has been unable to eat or drink much since her onset of symptoms. She otherwise denied any additional complaints including chest pain, shortness of breath, cough, fever, chills, recent travel, or sick contacts. She underwent an extensive evaluation in the emergency room with an abdomen/pelvis computed tomography scan which revealed nonspecific colitis with a right lower lobe infiltrate. EKG revealed sinus tachycardia with PVCs at 111 bpm with a bifascicular block. Laboratory evaluation revealed a lactic acid of 2.3, WBC count 18, hemoglobin 14.7, sodium 134, potassium 4.2, BUN 70, creatinine 1.31, and glucose 121. Review of Systems Pertinent positives and negatives as discussed in HPI, a complete review of systems was performed and all other systems are negative. Past Medical History Past Medical History: Asthma, COPD, Diabetes Mellitus, Hypertension, Thyroid Disorder Additional Past Medical History / Comment(s): Hernia History of Any Multi-Drug Resistant Organisms: None Reported Past Surgical History: Orthopedic Surgery Additional Past Surgical History / Comment(s): teeth extraction 2 weeks ago total top 5-6 teeth total. Past Anesthesia/Blood Transfusion Reactions: No Reported Reaction Past Psychological History: No Psychological Hx Reported Smoking Status: Current some day smoker Past Alcohol Use History: None Reported Past Drug Use History: None Reported - Past Family History Father Family Medical History: Liver Disease Mother Family Medical History: COPD, Diabetes Mellitus, Hypertension Medications and Allergies Home Medications Medication Instructions Recorded Confirmed Type Albuterol Inhaler [Ventolin Hfa 2 puff INHALATION RT-Q6H PRN 04/12/19 10/24/19 History Inhaler] Diltiazem HCl [Cardizem CD] 360 mg PO DAILY@0804/12/19 10/24/19 History Ipratropium-Albuterol Nebulize 3 ml INHALATION RT-QID 04/12/19 10/24/19 History [Duoneb 0.5 mg-3 mg/3 ml Soln] Levothyroxine Sodium 200 mcg PO DAILY@0804/12/19 10/24/19 History Omeprazole 20 mg PO DAILY@79904/12/19 10/24/19 History metFORMIN HCL [Glucophage] 1,000 mg PO BID@08,199904/12/19 10/24/19 History Fluticasone Nasal [place] [Flonase 1 spray EA NOSTRIL BID PRN 09/11/19 10/24/19 History Nasal [place]] Loperamide [Imodium] 2 mg PO QID PRN 09/11/19 10/24/19 History glipiZIDE [Glucotrol] 10 mg PO DAILY@0809/11/19 10/24/19 History amLODIPine [Norvasc] 5 mg PO DAILY #30 tab 09/15/19 10/24/19 Rx Fenofibrate Nanocrystallized 145 mg PO DAILY 10/24/19 10/24/19 History [Fenofibrate] Tiotropium 18 Mcg/Puff [Spiriva] 1 cap INHALATION RT-DAILY 10/24/19 10/24/19 History Allergies Allergy/AdvReac Type Severity Reaction Status Date / Time NSAIDS (Non-Steroidal AdvReac ULCERS Verified 10/24/19 20:42 Anti-Inflamma Physical Exam Vitals: Vital Signs Temp Pulse Pulse Resp BP BP Pulse Ox 10/24/19 21:30 96.2 F L 111 H 20 132/74 96 10/24/19 20:26 85 18 150/93 94 L 10/24/19 17:08 97.9 F 88 18 179/78 90 L Intake and Output 10/24/19 10/24/19 10/25/19 14:59 22:59 06:59 Other: # Voids 1 # Bowel Movements 1 Weight 104.326 kg General: non toxic, no distress, appears at stated age, morbidly obese Derm: no unusual rashes/lesions no unusual ecchymoses, warm, dry Head: atraumatic, normocephalic, symmetric Eyes: EOMI, no lid lag, anicteric sclera, pupils equal round reactive to light ENT: Nose and ears atraumatic, no thrush, no pharyngeal erythema Neck: No thyromegaly, no cervical lymphadenopathy, trachea midline, supple Mouth: no lip lesion, mucus membranes moist Cardiovascular: S1S2 reg, no murmur, positive posterior tibial pulse bilateral, no edema, capillary refill less than 2 seconds Lungs: Wheezing bilaterally, no rhonchi or rales appreciated, no accessory muscle use Abdominal: soft, left lower quadrant tenderness to palpation, some guarding, no appreciable organomegaly, normal bowel sounds Ext: no gross muscle atrophy, muscle strength 5 out of 5 in all 4 extremities grossly, no contractures, Neuro: CN II-XI grossly intact, light touch intact all 4 extremities, finger to nose within normal limits, Psych: Alert, oriented, appropriate affect Results CBC & Chem 7: 10/24/19 17:35 10/24/19 17:35 Labs: Abnormal Lab Results - Last 24 Hours (Table) 10/24/19 10/24/19 10/24/19 Range/Units 17:35 17:35 17:35 WBC 18.0 H (3.8-10.6) k/uL RBC 5.55 H (3.80-5.40) m/uL Neutrophils # 15.5 H (1.3-7.7) k/uL Sodium 134 L (137-145) mmol/L BUN 70 H (7-17) mg/dL Creatinine 1.31 H (0.52-1.04) mg/dL Glucose 172 H (74-99) mg/dL POC Glucose (mg/dL) (75-99) mg/dL Plasma Lactic Acid Angus 2.3 H* (0.7-2.0) mmol/L Albumin 3.4 L (3.5-5.0) g/dL Lipase 17 L (23-300) U/L Ur Specific [place] (1.001-1.035) Urine Protein (Negative) Urine Blood (Negative) Urine Mucus (None) /hpf 10/24/19 10/24/19 Range/Units 19:59 21:28 WBC (3.8-10.6) k/uL RBC (3.80-5.40) m/uL Neutrophils # (1.3-7.7) k/uL Sodium (137-145) mmol/L BUN (7-17) mg/dL Creatinine (0.52-1.04) mg/dL Glucose (74-99) mg/dL POC Glucose (mg/dL) 156 H (75-99) mg/dL Plasma Lactic Acid [place] (0.7-2.0) mmol/L Albumin (3.5-5.0) g/dL Lipase (23-300) U/L Ur Specific [place] 1.045 H (1.001-1.035) Urine Protein 1+ H (Negative) Urine Blood Small H (Negative) Urine Mucus Rare H (None) /hpf Thrombosis Risk Factor Assmnt - Choose All That Apply Any of the Below Risk Factors Present?: Yes Each Factor Represents 1 point: Age 41-60 years, Obesity (BMI >25) Other Risk Factors: No Other congenital or acquired thrombophilia - If yes, enter type in comment: No Thrombosis Risk Factor Assessment Total Risk Factor Score: 2 Thrombosis Risk Factor Assessment Level: Low Risk Assessment and Plan Plan: Colitis -Will start Flagyl -C/w IVFs -Anti-emetics -Clear liquid diet -Pain control Bifascicular block, new finding on EKG -Trend troponin for now -Patient denying chest pain or shortness of breath -Cardiac monitoring Lactic acidosis -Monitor to resolution PARMINDER, prerenal -Likely due to poor oral intake in setting of diarrhea and vomiting -Continue with IV fluids -Monitor BMP Wheezing, with hx of COPD -Duonebs -Start prednisone 40 mg daily Type II DM -PATRICIA with FS Chronic conditions: HTN, HLD -C/w home meds DVT prophylaxis -Heparin The patient is admitted with an anticipated more than 2 midnight stay for evaluation of colitis CODE STATUS: Full Code Discussed with: Patient Anticipated discharge date: 2-[address]: Home A total of 45 minutes was spent on the care of this complex patient more than 50% of the time was spent in counseling and care coordination.
[2019-10-25] MEDS: metroNIDAZOLE-NS PMX 500 MG in SALINE 1 100ML.BAG IVPB SCH ×3 (05:25→20:20)
[2019-10-25] MEDS: LEVOTHYROXINE 100 MCG TAB PO SCH (06:04)
[2019-10-25 07:10] LABS: Glucose,Whole Blood 147 mg/dL (75-99)
[2019-10-25] MEDS: HEPARIN SODIUM,PORCINE 5,000 UNIT/ML 1 ML VIAL SQ SCH ×2 (07:40→17:03)
[2019-10-25] MEDS: FENOFIBRATE 160 MG TAB PO SCH (07:40)
[2019-10-25] MEDS: amLODIPine 5 MG TAB PO SCH (07:40)
[2019-10-25] MEDS: DILTIAZEM CD 180 MG CAP.ER.24H PO SCH (07:40)
[2019-10-25] MEDS: SODIUM CHLORIDE 0.9% 1,000 ML IV SCH ×2 (07:41→17:03)
[2019-10-25] MEDS: INSULIN ASPART (NovoLOG) 100 UNIT/ML VIAL SQ SCH ×4 (07:41→20:19)
[2019-10-25] MEDS: MORPHINE SULFATE 4 MG/ML SYRINGE IVP PRN ×2 (07:48→17:34)
[2019-10-25] MEDS ORDERED: NON FORMULARY DRUG (Tiotropium 18 Mcg/Puff 1 CAP) INHALATION SCH (08:00)
[2019-10-25] MEDS: IPRATROPIUM-ALBUTEROL 3 ML NEB INHALATION SCH ×3 (08:02→19:31)
[2019-10-25 08:22] LABS: Basophils % (A) 0 %; Eosinophils # (A) 0.2 k/uL (0-0.7); Eosinophils % (A) 1 %; HCT 38.9 % (34.0-46.0); HGB 12.6 gm/dL (11.4-16.0); Lymphocytes # (A) 1.7 k/uL (1.0-4.8); Lymphocytes % (A) 11 %; MCH 26.6 pg (25.0-35.0); MCHC 32.4 g/dL (31.0-37.0); MCV 82.2 fL (80.0-100.0); Mean Platelet Volume 8.7; Monocytes # (A) 0.6 k/uL (0-1.0); Monocytes % (A) 4 %; Neutrophils % (A) 83 %; Platelet Count 278 k/uL (150-450); RBC 4.73 m/uL (3.80-5.40); RDW 15.6 % (11.5-15.5); WBC 15.7 k/uL (3.8-10.6)
[2019-10-25 08:42] LABS: Calcium 8.5 mg/dL (8.4-10.2); Potassium 3.8 mmol/L (3.5-5.1)
[2019-10-25] MEDS ORDERED: predniSONE 20 MG TAB PO SCH (09:00)
--- NOTE | 2019-10-25 10:21 | P.PN ---
Subjective Progress Note Date: 10/25/19 Principal diagnosis: N/V/D Patient has some diarrhea this morning but feeling better overall. Still having some abdominal pain on the left side. No nausea or vomiting. No fevers or chills. Objective - Vital Signs Vital signs: Vital Signs Temp 97.4 F L 10/25/19 05:48 Pulse 108 H 10/25/19 08:15 Resp 20 10/25/19 05:48 BP 138/83 10/25/19 05:48 Pulse Ox 95 10/25/19 05:48 Intake & Output 10/24/19 10/25/19 10/25/19 18:59 06:59 18:59 Weight 104.326 kg 104.326 kg Other: Voiding Method Toilet Bedside Commode # Voids 2 # Bowel Movements 2 - Exam Constitutional: No acute distress, conversant, pleasant Eyes:Anicteric sclerae, moist conjunctiva, no lid-lag, PERRLA, ENMT: Oropharynx clear, no erythema, exudates Neck: Supple, FROM, no masses, or JVD, No carotid bruits, No thyromegaly Lungs: Clear to auscultation, Clear to percussion, Normal respiratory effort, no accessory muscle use Cardiovascular: Heart regular in rate and rhythm, No murmurs, gallops, or rubs, No peripheral edema Abdominal: Soft, tender on the left side, no guarding, rebound or rigidity, Normoactive bowel sounds, No hepatomegaly, No splenomegaly, No palpable mass Skin: Normal temperature, tone, texture, turgor, no induration, No subcutaneous nodules, No rash, lesions, No ulcers Extremities: No digital cyanosis, No clubbing, Pedal pulses intact and symmetrical, Radial pulses intact and symmetrical, No calf tenderness Psychiatric: Alert and oriented to person, place and time, appropriate affect, intact judgement Neuro: Muscles Strength 5/5 in all 4 extremities, Sensation to light touch grossly present throughout, Cranial nerves II-XII grossly intact, no focal sensory deficits - Labs CBC & Chem 7: 10/25/19 07:35 10/25/19 07:35 Labs: Abnormal Lab Results - Last 24 Hours (Table) 10/24/19 10/24/19 10/24/19 Range/Units 17:35 17:35 17:35 WBC 18.0 H (3.8-10.6) k/uL RBC 5.55 H (3.80-5.40) m/uL RDW (11.5-15.5) % Neutrophils # 15.5 H (1.3-7.7) k/uL Sodium 134 L (137-145) mmol/L BUN 70 H (7-17) mg/dL Creatinine 1.31 H (0.52-1.04) mg/dL Glucose 172 H (74-99) mg/dL POC Glucose (mg/dL) (75-99) mg/dL Plasma Lactic Acid Angus 2.3 H* (0.7-2.0) mmol/L Albumin 3.4 L (3.5-5.0) g/dL Lipase 17 L (23-300) U/L Ur Specific [place] (1.001-1.035) Urine Protein (Negative) Urine Blood (Negative) Urine Mucus (None) /hpf 10/24/19 10/24/19 10/25/19 Range/Units 19:59 21:28 07:08 WBC (3.8-10.6) k/uL RBC (3.80-5.40) m/uL RDW (11.5-15.5) % Neutrophils # (1.3-7.7) k/uL Sodium (137-145) mmol/L BUN (7-17) mg/dL Creatinine (0.52-1.04) mg/dL Glucose (74-99) mg/dL POC Glucose (mg/dL) 156 H 147 H (75-99) mg/dL Plasma Lactic Acid Ang[place] (0.7-2.0) mmol/L Albumin (3.5-5.0) g/dL Lipase (23-300) U/L Ur Specific [place] 1.045 H (1.001-1.035) Urine Protein 1+ H (Negative) Urine Blood Small H (Negative) Urine Mucus Rare H (None) /hpf 10/25/19 10/25/19 Range/Units 07:35 07:35 WBC 15.7 H (3.8-10.6) k/uL RBC (3.80-5.40) m/uL RDW 15.6 H (11.5-15.5) % Neutrophils # 13.0 H (1.3-7.7) k/uL Sodium 134 L (137-145) mmol/L BUN 52 H (7-17) mg/dL Creatinine 1.06 H (0.52-1.04) mg/dL Glucose 138 H (74-99) mg/dL POC Glucose (mg/dL) (75-99) mg/dL Plasma Lactic Acid [place] (0.7-2.0) mmol/L Albumin (3.5-5.0) g/dL Lipase (23-300) U/L Ur Specific [place] (1.001-1.035) Urine Protein (Negative) Urine Blood (Negative) Urine Mucus (None) /hpf Assessment and Plan Plan: Colitis -Continue Flagyl -C/w IVFs -Anti-emetics -Clear liquid diet -Pain control Bifascicular block, new finding on EKG -Cardiac monitoring Lactic acidosis -Resolved PARMINDER, prerenal -Likely due to poor oral intake in setting of diarrhea and vomiting -Continue with IV fluids -Monitor BMP Type II DM -PATRICIA with FS Chronic conditions: HTN, HLD, COPD -C/w home meds DVT prophylaxis -Heparin Anticipated discharge date: [address]: Home A total of 35 minutes was spent on the care of this complex patient more than 50% of the time was spent in counseling and care coordination.
[2019-10-25 11:57] LABS: Glucose,Whole Blood 186 mg/dL (75-99)
[2019-10-25 17:01] LABS: Glucose,Whole Blood 262 mg/dL (75-99)
[2019-10-25] MEDS: CALCIUM CARBONATE 500 MG CHEWABLE PO PRN (17:03)
[2019-10-25 20:12] LABS: Glucose,Whole Blood 281 mg/dL (75-99)
--- NOTE | 2019-10-25 21:31 | P.CONS ---
History of Present Illness - Reason for Consult Consult date: 10/25/19 Colitis Requesting physician: Sarah Bee - Chief Complaint Abdominal pain, diarrhea, nausea and vomiting - History of Present Illness 59-year-old female with past medical history significant for diabetes mellitus, hypertension, COPD on home oxygen therapy, prior history of colitis and hypothyroidism who presented to the hospital with a constellation of symptoms including abdominal pain, diarrhea, nausea and vomiting. She reports that the symptoms developed suddenly a few days prior to presentation. She reports she developed diffuse abdominal pain across her abdomen described as sharp in nature. The pain does not radiate but is currently predominantly on the left lower abdomen. She denies any sick contacts, or family members with similar symptoms. No fevers or chills. The patient had audible episodes of nausea and vomiting and loose stool associated with her symptoms. She reports previously having an episode of colitis in 2016 diagnosed on colonoscopy in [place]. She is unsure of etiology and if this was secondary to ischemia, infection or inflammatory process. She denies any chronic medications for colitis. C. difficile testing on presentation was negative. Currently patient has a WBC of 15.7 down from 18 on presentation, hemoglobin 12.6. Computed tomography scan of the abdomen described nonspecific left-sided colitis, mild free fluid in the abdomen, umbilical hernia and right lower lobe pneumonia. Review of Systems REVIEW OF SYSTEMS: CONSTITUTIONAL: Denies any fevers, chills, weight change or fatigue. CARDIOVASCULAR: Denies any chest pain, palpitations high or low blood pressures RESPIRATORY: Denies any shortness of breath, hemoptysis or cough, patient is on oxygen therapy for COPD. GENITOURINARY: No dysuria or hematuria. MUSCULOSKELETAL: No weakness reported. SKIN: Denies any new rashes or lesions, jaundice or pallor. PSYCHIATRIC: Denies any depression or anxiety. NEUROLOGY: Denies headache, denies any new focal deficits. EARS/NOSE/THROAT: No recent hearing change, congestion, nasal discharge or sore throat. EYES: No pain in eyes, discharge or change in vision. GASTROINTESTINAL: As per HPI. Past Medical History Past Medical History: Asthma, COPD, Diabetes Mellitus, Hypertension, Thyroid Disorder Additional Past Medical History / Comment(s): Hernia History of Any Multi-Drug Resistant Organisms: None Reported Past Surgical History: Orthopedic Surgery Additional Past Surgical History / Comment(s): teeth extraction 2 weeks ago total top 5-6 teeth total. Past Anesthesia/Blood Transfusion Reactions: No Reported Reaction Past Psychological History: No Psychological Hx Reported Smoking Status: Current some day smoker Past Alcohol Use History: None Reported Past Drug Use History: None Reported - Past Family History Father Family Medical History: Liver Disease Mother Family Medical History: COPD, Diabetes Mellitus, Hypertension Medications and Allergies Home Medications Medication Instructions Recorded Confirmed Type Albuterol Inhaler [Ventolin Hfa 2 puff INHALATION RT-Q6H PRN 04/12/19 10/24/19 History Inhaler] Diltiazem HCl [Cardizem CD] 360 mg PO DAILY@0804/12/19 10/24/19 History Ipratropium-Albuterol Nebulize 3 ml INHALATION RT-QID 04/12/19 10/24/19 History [Duoneb 0.5 mg-3 mg/3 ml Soln] Levothyroxine Sodium 200 mcg PO DAILY@0804/12/19 10/24/19 History Omeprazole 20 mg PO DAILY@0804/12/19 10/24/19 History metFORMIN HCL [Glucophage] 1,000 mg PO BID@0800,199904/12/19 10/24/19 History Fluticasone Nasal [place] [Flonase 1 spray EA NOSTRIL BID PRN 09/11/19 10/24/19 History Nasal [place]] Loperamide [Imodium] 2 mg PO QID PRN 09/11/19 10/24/19 History glipiZIDE [Glucotrol] 10 mg PO DAILY@0800 09/11/19 10/24/19 History amLODIPine [Norvasc] 5 mg PO DAILY #30 tab 09/15/19 10/24/19 Rx Fenofibrate Nanocrystallized 145 mg PO DAILY 10/24/19 10/24/19 History [Fenofibrate] Tiotropium 18 Mcg/Puff [Spiriva] 1 cap INHALATION RT-DAILY 10/24/19 10/24/19 History Allergies Allergy/AdvReac Type Severity Reaction Status Date / Time NSAIDS (Non-Steroidal AdvReac ULCERS Verified 10/24/19 20:42 Anti-Inflamma Physical Exam Vitals: Vital Signs Temp Pulse Pulse Resp BP Pulse Ox 10/25/19 19:40 92 16 10/25/19 19:31 91 18 10/25/19 16:00 18 10/25/19 14:45 97.0 F L 93 18 140/78 98 10/25/19 13:36 100 10/25/19 13:24 96 10/25/19 08:15 108 H 10/25/19 08:04 100 10/25/19 08:00 20 10/25/19 05:48 97.4 F L 103 H 20 138/83 95 10/25/19 01:47 106 H 10/25/19 01:42 99 10/25/19 01:39 106 H 10/24/19 21:30 96.2 F L 111 H 20 132/74 96 Intake and Output 10/25/19 10/25/19 10/25/19 06:59 14:59 22:59 Intake Total 800 Balance 800 Intake: Oral 800 Other: Voiding Method Bedside Commode Bedside Commode # Voids 2 3 # Bowel Movements 2 On physical examination, patient appears comfortable in no apparent distress. HEAD: Normocephalic, atraumatic. EYES: No scleral icterus. No conjunctival injection. MOUTH: No lesions, tongue midline. NECK: Trachea midline, no gross abnormalities. CHEST: Decreased air entry in all lung cota no wheezing appreciated. HEART: Regular rate and rhythm. ABDOMEN: Soft, obese and mildly tender to palpation predominantly in the left lower quadrant of her abdomen. Bowel sounds are positive. No organomegaly. No guarding or rigidity. EXTREMITIES: No pedal edema. SKIN: No rashes, no jaundice. NEUROLOGIC: Alert and oriented x3. No focal deficits. Results CBC & Chem 7: 10/25/19 07:35 10/25/19 07:35 Labs: Abnormal Lab Results - Last 24 Hours (Table) 10/24/19 10/25/19 10/25/19 Range/Units 21:28 07:08 07:35 WBC 15.7 H (3.8-10.6) k/uL RDW 15.6 H (11.5-15.5) % Neutrophils # 13.0 H (1.3-7.7) k/uL Sodium (137-145) mmol/L BUN (7-17) mg/dL Creatinine (0.52-1.04) mg/dL Glucose (74-99) mg/dL POC Glucose (mg/dL) 156 H 147 H (75-99) mg/dL 10/25/19 10/25/19 10/25/19 Range/Units 07:35 11:55 16:56 WBC (3.8-10.6) k/uL RDW (11.5-15.5) % Neutrophils # (1.3-7.7) k/uL Sodium 134 L (137-145) mmol/L BUN 52 H (7-17) mg/dL Creatinine 1.06 H (0.52-1.04) mg/dL Glucose 138 H (74-99) mg/dL POC Glucose (mg/dL) 186 H 262 H (75-99) mg/dL 10/25/19 Range/Units 20:10 WBC (3.8-10.6) k/uL RDW (11.5-15.5) % Neutrophils # (1.3-7.7) k/uL Sodium (137-145) mmol/L BUN (7-17) mg/dL Creatinine (0.52-1.04) mg/dL Glucose (74-99) mg/dL POC Glucose (mg/dL) 281 H (75-99) mg/dL CT scan - abdomen: report reviewed (Computed tomography scan of the abdomen described nonspecific left-sided colitis, mild free fluid in the abdomen, umbilical hernia and right lower lobe pneumonia.) Assessment and Plan (1) Acute colitis Narrative/Plan: 59-year-old female presenting with a constellation of symptoms including abdominal pain, nausea and vomiting and diarrhea. Testing for Clostridium diff icile negative. Computed tomography scan of the abdomen significant for a nonspecific left-sided colitis. Prior episode in 2016 of unknown etiology per the patient. She has no history of inflammatory bowel disease. Unclear etiology may be related to infectious or ischemic process, less likely in flammatory process given the absence of chronicity of symptoms. Current Visit: Yes Status: Acute Code(s): K52.9 - NONINFECTIVE GASTROENTERITIS AND COLITIS, UNSPECIFIED SNOMED Code(s): 54596615 (2) Abdominal pain Current Visit: Yes Status: Acute Code(s): R10.9 - UNSPECIFIED ABDOMINAL PAIN SNOMED Code(s): 54054807 (3) Diarrhea Current Visit: Yes Status: Acute Code(s): R19.7 - DIARRHEA, UNSPECIFIED SNOMED Code(s): 23422002 (4) Nausea and vomiting Current Visit: Yes Status: Acute Code(s): R11.2 - NAUSEA WITH VOMITING, UNSPECIFIED SNOMED Code(s): 36242036 Plan: Supportive care Okay for diet, advance as tolerated to low fiber, low residual Continue to monitor symptoms Continue pain control Encourage ambulation as tolerated Continue broad-spectrum antibiotic therapy No plans for endoscopic evaluation at this time Would recommend patient follow-up after discharge with planning for colonoscopy for further evaluation in the outpatient setting after 4-6 weeks Thank you for allowing us to participate in the care of the patient
[2019-10-26] MEDS: HEPARIN SODIUM,PORCINE 5,000 UNIT/ML 1 ML VIAL SQ SCH ×3 (00:05→15:30)
[2019-10-26] MEDS: CALCIUM CARBONATE 500 MG CHEWABLE PO PRN ×2 (00:05→22:38)
[2019-10-26] MEDS: SODIUM CHLORIDE 0.9% 1,000 ML IV SCH ×3 (02:40→21:13)
[2019-10-26] MEDS: metroNIDAZOLE-NS PMX 500 MG in SALINE 1 100ML.BAG IVPB SCH ×3 (04:18→19:32)
[2019-10-26] MEDS: LEVOTHYROXINE 100 MCG TAB PO SCH (05:50)
[2019-10-26 07:21] LABS: Glucose,Whole Blood 172 mg/dL (75-99)
[2019-10-26] MEDS: IPRATROPIUM-ALBUTEROL 3 ML NEB INHALATION SCH ×4 (07:52→20:02)
[2019-10-26 08:33] LABS: Basophils % (A) 0 %; Eosinophils # (A) 0.1 k/uL (0-0.7); Eosinophils % (A) 0 %; HCT 39.6 % (34.0-46.0); HGB 12.5 gm/dL (11.4-16.0); Lymphocytes # (A) 1.7 k/uL (1.0-4.8); Lymphocytes % (A) 11 %; MCH 26.2 pg (25.0-35.0); MCHC 31.6 g/dL (31.0-37.0); MCV 82.8 fL (80.0-100.0); Mean Platelet Volume 8.7; Monocytes # (A) 0.8 k/uL (0-1.0); Monocytes % (A) 5 %; Neutrophils # (A) 11.9 k/uL (1.3-7.7); Neutrophils % (A) 81 %; Platelet Count 286 k/uL (150-450); RBC 4.78 m/uL (3.80-5.40); RDW 15.6 % (11.5-15.5); WBC 14.7 k/uL (3.8-10.6)
[2019-10-26] MEDS: DILTIAZEM CD 180 MG CAP.ER.24H PO SCH (08:41)
[2019-10-26] MEDS: amLODIPine 5 MG TAB PO SCH (08:42)
[2019-10-26] MEDS: INSULIN ASPART (NovoLOG) 100 UNIT/ML VIAL SQ SCH ×4 (08:42→21:13)
[2019-10-26] MEDS: FENOFIBRATE 160 MG TAB PO SCH (08:42)
[2019-10-26 08:47] LABS: Magnesium 1.9 mg/dL (1.6-2.3); Phosphorus 3.8 mg/dL (2.5-4.5); Potassium 4.2 mmol/L (3.5-5.1)
--- NOTE | 2019-10-26 10:05 | XR ---
EXAMINATION TYPE: XR chest 1V portable DATE OF EXAM: 10/26/2019 CLINICAL HISTORY: Difficulty breathing . TECHNIQUE: Single AP portable upright view of the chest is obtained. COMPARISON: Chest x-ray from September 14, 2019. FINDINGS: There is persistent cardiomegaly. There is chronic parenchymal changes bilaterally without suspicious focal airspace opacity, pleural effusion, or pneumothorax seen bilaterally. Osseous struc tures are intact. Somewhat diminished aspiration on current study. IMPRESSION: Chronic parenchymal changes and cardiomegaly without suspicious acute pulmonary process i dentified on current study
[2019-10-26 11:51] LABS: Glucose,Whole Blood 135 mg/dL (75-99)
[2019-10-26] MEDS: predniSONE 20 MG TAB PO SCH (15:29)
--- NOTE | 2019-10-26 15:48 | P.PN ---
Subjective Progress Note Date: 10/26/19 Principal diagnosis: abdominal pain Patient is a 59-year-old female past medical history of diabetes mellitus type 2, hypertension, COPD, and chronic hypoxic respiratory failure on 2.5 L nasal cannula continuously who presented to the emergency department with abdominal pain, diarrhea, nausea, and vomiting. On arrival she was hypertensive and slightly hypoxic at 90% on room air. Should have a white blood cell count of 18, BUN 70, creatinine 1.31. Lactic acid was elevated at 2.3. CT abdomen and pelvis showed wall thickening involving the left colon and distal transverse colon and splenic flexure with sigmoid diverticulosis without diverticulitis. Patient was started on Flagyl and IV fluids. She was admitted for further monitoring. After admission she had rapid improvement in her renal function with IV fluids. She was seen by GI who recommended starting her on a diet and continuing broad-spectrum antibiotic therapy. C. diff was negative. She started to have improvement in her symptoms but her shortness of breath increased. Patient seen and examined at bedside. Her diarrhea, nausea, and vomiting were improved. Her belly pain also subsided. She then became short of breath was discovered that her home nebulized medications had not been continued during the hospital. She denies any chest pain. She is feeling weak and crampy all over. She does feel better than admission. She reports being very fatigued. Objective - Vital Signs Vital signs: Vital Signs Temp 97.7 F 10/26/19 05:20 Pulse 79 10/26/19 08:08 Resp 20 10/26/19 05:20 BP 134/77 10/26/19 05:20 Pulse Ox 95 10/26/19 07:56 Intake & Output 10/25/19 10/26/19 10/26/19 18:59 06:59 18:59 Intake Total 800 500 Balance 800 500 Intake: Oral 800 500 Other: Voiding Method Bedside Commode Bedside Commode # Voids 3 1 - Exam General: ill appearing, no distress, appears at stated age Derm: warm, dry Head: atraumatic, normocephalic, symmetric Eyes: EOMI, no lid lag, anicteric sclera Mouth: no lip lesion, mucus membranes dry Cardiovascular: S1S2 reg, no murmur, positive posterior tibial pulse bilateral, Lungs: CTA bilateral, no rhonchi, no rales , no accessory muscle use Abdominal: soft, nontender to palpation, no guarding, no appreciable organomegaly Ext: no gross muscle atrophy, no edema, no contractures Neuro: CN II-XI grossly intact, no focal neuro deficits Psych: Alert, oriented, appropriate affect - Labs CBC & Chem 7: 10/26/19 07:46 10/26/19 07:46 Labs: Abnormal Lab Results - Last 24 Hours (Table) 10/25/19 10/25/19 10/25/19 Range/Units 11:55 16:56 20:10 WBC (3.8-10.6) k/uL RDW (11.5-15.5) % Neutrophils # (1.3-7.7) k/uL BUN (7-17) mg/dL Glucose (74-99) mg/dL POC Glucose (mg/dL) 186 H 262 H 281 H (75-99) mg/dL 10/26/19 10/26/19 10/26/19 Range/Units 07:19 07:46 07:46 WBC 14.7 H (3.8-10.6) k/uL RDW 15.6 H (11.5-15.5) % Neutrophils # 11.9 H (1.3-7.7) k/uL BUN 41 H (7-17) mg/dL Glucose 149 H (74-99) mg/dL POC Glucose (mg/dL) 172 H (75-99) mg/dL Microbiology - Last 24 Hours (Table) 10/24/19 20:32 Blood Culture - Preliminary Blood No Growth after 24 hours Assessment and Plan Assessment: Acute colitis -Possible food induced -Add Rocephin to Flagyl -IV fluids -GI recommendations appreciated -Continue with low fiber low residual diet Acute exacerbation of COPD -Chest x-ray ordered and reviewed which showed no acute process -Continue to monitor for fevers -Start duo nebs 4 times daily and when necessary as patient takes at home, prednisone restarted (missed dose 10/24) Acute hypoxic respiratory failure -Continue with home O2 Bifascicular block -Outpatient workup Diabetes mellitus type II -Sliding-scale insulin -Check hemoglobin A1c -Glipizide and metformin on hold Lactic acidosis, resolved Acute kidney injury, resolved Chronic: Hypertension Hypothyroidism DVT prophylaxis: Heparin Discussed with: patient, nursing Anticipated discharge: in 2-[address]: home A total of 25 minutes was spent on the care of this complex patient more than 50% of the time was spent in counseling and care coordination.
[2019-10-26 16:38] LABS: Glucose,Whole Blood 152 mg/dL (75-99)
[2019-10-26] MEDS: metFORMIN 500 MG TAB PO SCH (17:07)
[2019-10-26] MEDS: ACETAMINOPHEN TAB 325 MG TAB PO PRN (17:17)
[2019-10-26 20:46] LABS: Glucose,Whole Blood 153 mg/dL (75-99)
[2019-10-27] MEDS: HEPARIN SODIUM,PORCINE 5,000 UNIT/ML 1 ML VIAL SQ SCH ×4 (00:01→23:27)
[2019-10-27] MEDS: metroNIDAZOLE-NS PMX 500 MG in SALINE 1 100ML.BAG IVPB SCH ×2 (03:31→11:59)
[2019-10-27] MEDS: LEVOTHYROXINE 100 MCG TAB PO SCH (05:13)
[2019-10-27] MEDS: ACETAMINOPHEN TAB 325 MG TAB PO PRN (05:15)
[2019-10-27 07:00] LABS: Glucose,Whole Blood 128 mg/dL (75-99)
[2019-10-27] MEDS ORDERED: glipiZIDE 10 MG TAB PO SCH (07:30)
[2019-10-27] MEDS: INSULIN ASPART (NovoLOG) 100 UNIT/ML VIAL SQ SCH ×4 (07:57→20:26)
[2019-10-27 08:00] LABS: Basophils # (A) 0.1 k/uL (0-0.2); Basophils % (A) 0 %; Eosinophils # (A) 0.1 k/uL (0-0.7); Eosinophils % (A) 0 %; HCT 39.9 % (34.0-46.0); Hypochromasia Slight; Lymphocytes # (A) 1.8 k/uL (1.0-4.8); Lymphocytes % (A) 13 %; MCH 27.4 pg (25.0-35.0); MCHC 32.7 g/dL (31.0-37.0); MCV 83.9 fL (80.0-100.0); Mean Platelet Volume 8.8; Monocytes # (A) 0.7 k/uL (0-1.0); Monocytes % (A) 5 %; Neutrophils # (A) 11.2 k/uL (1.3-7.7); Neutrophils % (A) 78 %; Platelet Count 343 k/uL (150-450); RBC 4.76 m/uL (3.80-5.40); RDW 15.4 % (11.5-15.5); WBC 14.3 k/uL (3.8-10.6)
[2019-10-27] MEDS: FENOFIBRATE 160 MG TAB PO SCH (08:00)
[2019-10-27] MEDS: metFORMIN 500 MG TAB PO SCH (08:00)
[2019-10-27] MEDS: amLODIPine 5 MG TAB PO SCH (08:00)
[2019-10-27] MEDS: DILTIAZEM CD 180 MG CAP.ER.24H PO SCH (08:00)
[2019-10-27] MEDS: predniSONE 20 MG TAB PO SCH (08:00)
[2019-10-27 08:27] LABS: ALT 13 U/L (4-34); AST 30 U/L (14-36); African American GFR (CKD) >90 (>60 ml/min/1.73 sqM); Albumin 2.6 g/dL (3.5-5.0); Alkaline Phosphatase 96 U/L (38-126); Anion Gap 6 mmol/L; Blood Urea Nitrogen 29 mg/dL (7-17); Carbon Dioxide 22 mmol/L (22-30); Chloride 108 mmol/L (98-107); Glucose 122 mg/dL (74-99); Non-African American GFR(CKD) 81 (>60 ml/min/1.73 sqM); Potassium 5.1 mmol/L (3.5-5.1); Sodium 136 mmol/L (137-145); Total Bilirubin 0.3 mg/dL (0.2-1.3); Total Protein 5.2 g/dL (6.3-8.2)
[2019-10-27] MEDS: IPRATROPIUM-ALBUTEROL 3 ML NEB INHALATION SCH ×4 (09:11→21:05)
[2019-10-27] MEDS: METOCLOPRAMIDE 5 MG TAB PO PRN (11:11)
--- NOTE | 2019-10-27 11:32 | P.PN ---
Subjective Progress Note Date: 10/26/19 Principal diagnosis: Colitis, abdominal pain Patient is seen sitting bedside reporting abdominal pain is improved. Tolerating diet. No further diarrhea reported. Objective - Vital Signs Vital signs: Vital Signs Temp 98.7 F 10/26/19 21:30 Pulse 85 10/26/19 21:30 Resp 20 10/26/19 21:30 BP 161/83 10/26/19 21:30 Pulse Ox 95 10/26/19 21:30 Intake & Output 10/26/19 10/26/19 10/27/19 06:59 18:59 06:59 Intake Total 500 540 300 Balance 500 540 300 Intake: Oral 500 540 300 Other: Voiding Method Bedside Commode # Voids 1 3 1 - Exam On physical examination, patient appears comfortable in no apparent distress. HEAD: Normocephalic, atraumatic. EYES: No scleral icterus. No conjunctival injection. MOUTH: No lesions, tongue midline. NECK: Trachea midline, no gross abnormalities. ABDOMEN: Soft, obese and mildly tender to palpation in the left lower quadrant of her abdomen. Bowel sounds are positive. No organomegaly. No guarding or rigidity. EXTREMITIES: No pedal edema. SKIN: No rashes, no jaundice. NEUROLOGIC: Alert and oriented x3. No focal deficits. - Labs CBC & Chem 7: 10/27/19 07:29 10/27/19 07:29 Labs: Abnormal Lab Results - Last 24 Hours (Table) 10/26/19 10/26/19 10/26/19 Range/Units 07:19 07:46 07:46 WBC 14.7 H (3.8-10.6) k/uL RDW 15.6 H (11.5-15.5) % Neutrophils # 11.9 H (1.3-7.7) k/uL BUN 41 H (7-17) mg/dL Glucose 149 H (74-99) mg/dL POC Glucose (mg/dL) 172 H (75-99) mg/dL 10/26/19 10/26/19 10/26/19 Range/Units 11:49 16:35 20:43 WBC (3.8-10.6) k/uL RDW (11.5-15.5) % Neutrophils # (1.3-7.7) k/uL BUN (7-17) mg/dL Glucose (74-99) mg/dL POC Glucose (mg/dL) 135 H 152 H 153 H (75-99) mg/dL Microbiology - Last 24 Hours (Table) 10/24/19 20:32 Blood Culture - Preliminary Blood No Growth after 24 hours Assessment and Plan (1) Acute colitis Narrative/Plan: 59-year-old female presenting with a constellation of symptoms including abdominal pain, nausea and vomiting and diarrhea. Testing for Clostridium difficile negative. Computed tomography scan of the abdomen significant for a nonspecific left-sided colitis. Prior episode in 2016 of unknown etiology per the patient. She has no history of inflammatory bowel disease. Unclear etiology may be related to infectious or ischemic process, less likely inflammatory process given the absence of chronicity of symptoms. Current Visit: Yes Status: Acute Code(s): K52.9 - NONINFECTIVE GASTROENTERITIS AND COLITIS, UNSPECIFIED SNOMED Code(s): 67725663 (2) Abdominal pain Current Visit: Yes Status: Acute Code(s): R10.9 - UNSPECIFIED ABDOMINAL PAIN SNOMED Code(s): 39954538 (3) Diarrhea Current Visit: Yes Status: Acute Code(s): R19.7 - DIARRHEA, UNSPECIFIED SNOMED Code(s): 37845983 (4) Nausea and vomiting Current Visit: Yes Status: Acute Code(s): R11.2 - NAUSEA WITH VOMITING, UNSPECIFIED SNOMED Code(s): 97152359 Plan: Supportive care Okay for low fiber, low residual diet Continue to monitor symptoms Continue pain control Encourage ambulation as tolerated Continue broad-spectrum antibiotic therapy No plans for endoscopic evaluation at this time Would recommend patient follow-up after discharge with planning for colonoscopy for further evaluation in the outpatient setting after 4-6 weeks Thank you for allowing us to participate in the care of the patient, the GI service will stand by, please call us back with any questions or concerns
[2019-10-27] MEDS: SODIUM CHLORIDE 0.9% 1,000 ML IV SCH (11:58)
[2019-10-27 12:35] LABS: Glucose,Whole Blood 80 mg/dL (75-99)
--- NOTE | 2019-10-27 14:58 | P.PN ---
Subjective Progress Note Date: 10/27/19 Principal diagnosis: abdominal pain Patient is a 59-year-old female past medical history of diabetes mellitus type 2, hypertension, COPD, and chronic hypoxic respiratory failure on 2.5 L nasal cannula continuously who presented to the emergency department with abdominal pain, diarrhea, nausea, and vomiting. On arrival she was hypertensive and slightly hypoxic at 90% on room air. Should have a white blood cell count of 18, BUN 70, creatinine 1.31. Lactic acid was elevated at 2.3. CT abdomen and pelvis showed wall thickening involving the left colon and distal transverse colon and splenic flexure with sigmoid diverticulosis without diverticulitis. Patient was started on Flagyl and IV fluids. She was admitted for further monitoring. After admission she had rapid improvement in her renal function with IV fluids. She was seen by GI who recommended starting her on a diet and continuing broad-spectrum antibiotic therapy. C. diff was negative. She started to have improvement in her symptoms but her shortness of breath increased. She was started on nebulized breathing treatment and steroids. She had a rapid improvement in her breathing, but was still having intermittnet nausea, and abdominal pain. She is having social stressors as the person she was living with prior to admission told her she is not welcome back. Patient seen and examined at bedside. She reports that her breathing is much better than yesterday and back to baseline. She reports that her nausea is improved but she is still having some intermittent abdominal pain. She continues to have diarrhea. We are very jemma discussion that she needs to find a discharge plan. She does not appear to require snf at this point in time, and she is continuing to improve rapidly and I anticipate her to be discharged next 24-48 hours. Patient made aware. Objective - Vital Signs Vital signs: Vital Signs Temp 98.1 F 10/27/19 04:35 Pulse 80 10/27/19 12:28 Resp 22 10/27/19 04:35 BP 136/74 10/27/19 04:35 Pulse Ox 95 10/27/19 04:35 Intake & Output 10/26/19 10/27/19 10/27/19 18:59 06:59 18:59 Intake Total 540 400 Balance 540 400 Intake: Oral 540 400 Other: Voiding Method Bedside Commode Bedside Commode # Voids 3 1 2 - Exam General: non toxic, no distress, appears at stated age Derm: warm, dry Head: atraumatic, normocephalic, symmetric Eyes: EOMI, no lid lag, anicteric sclera Mouth: no lip lesion, mucus membranes dry Cardiovascular: S1S2 reg, no murmur, positive posterior tibial pulse bilateral, Lungs: faint rales bilateral, no wheezing, no accessory muscle use Abdominal: soft, nontender to palpation, no guarding, no appreciable organomegaly Ext: no gross muscle atrophy, no edema, no contractures Neuro: CN II-XI grossly intact, no focal neuro deficits Psych: Alert, oriented, appropriate affect - Labs CBC & Chem 7: 10/27/19 07:29 10/27/19 07:29 Labs: Abnormal Lab Results - Last 24 Hours (Table) 10/26/19 10/26/19 10/27/19 Range/Units 16:35 20:43 06:58 WBC (3.8-10.6) k/uL Neutrophils # (1.3-7.7) k/uL Sodium (137-145) mmol/L Chloride (98-107) mmol/L BUN (7-17) mg/dL Glucose (74-99) mg/dL POC Glucose (mg/dL) 152 H 153 H 128 H (75-99) mg/dL Total Protein (6.3-8.2) g/dL Albumin (3.5-5.0) g/dL 10/27/19 10/27/19 Range/Units 07:29 07:29 WBC 14.3 H (3.8-10.6) k/uL Neutrophils # 11.2 H (1.3-7.7) k/uL Sodium 136 L (137-145) mmol/L Chloride 108 H (98-107) mmol/L BUN 29 H (7-17) mg/dL Glucose 122 H (74-99) mg/dL POC Glucose (mg/dL) (75-99) mg/dL Total Protein 5.2 L (6.3-8.2) g/dL Albumin 2.6 L (3.5-5.0) g/dL Microbiology - Last 24 Hours (Table) 10/24/19 20:32 Blood Culture - Preliminary Blood No Growth after 48 hours Assessment and Plan Assessment: Acute colitis -Possible food induced -Rocephin to Flagyl convert to orals as her IV is bad -IV fluids -GI recommendations appreciated -Continue with low fiber low residual diet Acute exacerbation of COPD -Chest x-ray ordered and reviewed which showed no acute process -Continue to monitor for fevers -Duo nebs 4 times daily and when necessary as patient takes at home, prednisone restarted Acute hypoxic respiratory failure -Continue with home O2 Bifascicular block -Outpatient workup Diabetes mellitus type II -Sliding-scale insulin -A1C was 7.10 April 2019 -Glipizide and metformin on hold Lactic acidosis, resolved Acute kidney injury, resolved Chronic: Hypertension Hypothyroidism Patient will work on discharge plan with brother and the person she was living with. DVT prophylaxis: Heparin Discussed with: patient, nursing Anticipated discharge: in AM Anticipated discharge place: home A total of 25 minutes was spent on the care of this complex patient more than 50% of the time was spent in counseling and care coordination.
[2019-10-27] MEDS: LACTOBACILLUS ACIDOPH & BULGAR 1 EACH PACKET PO SCH ×3 (16:16→20:20)
[2019-10-27 17:27] LABS: Glucose,Whole Blood 124 mg/dL (75-99)
[2019-10-27] MEDS: CALCIUM CARBONATE 500 MG CHEWABLE PO PRN (20:20)
[2019-10-27] MEDS: CEFDINIR 300 MG CAP PO SCH (20:20)
[2019-10-27] MEDS: metroNIDAZOLE 500 MG TAB PO SCH (20:20)
[2019-10-27 20:22] LABS: Glucose,Whole Blood 228 mg/dL (75-99)
[2019-10-28] MEDS: ACETAMINOPHEN TAB 325 MG TAB PO PRN (05:17)
[2019-10-28] MEDS: LEVOTHYROXINE 100 MCG TAB PO SCH (05:18)
[2019-10-28 06:50] LABS: HCT 42.2 % (34.0-46.0); HGB 13.2 gm/dL (11.4-16.0); MCH 25.7 pg (25.0-35.0); MCHC 31.3 g/dL (31.0-37.0); Mean Platelet Volume 8.9; Platelet Count 320 k/uL (150-450); RBC 5.15 m/uL (3.80-5.40); RDW 15.6 % (11.5-15.5); WBC 21.4 k/uL (3.8-10.6)
[2019-10-28 07:17] LABS: Albumin 2.5 g/dL (3.5-5.0); Calcium 9.1 mg/dL (8.4-10.2); Magnesium 1.6 mg/dL (1.6-2.3); Total Bilirubin 0.2 mg/dL (0.2-1.3)
[2019-10-28 07:24] LABS: Glucose,Whole Blood 86 mg/dL (75-99)
[2019-10-28] MEDS: IPRATROPIUM-ALBUTEROL 3 ML NEB INHALATION SCH ×4 (08:27→21:43)
[2019-10-28] MEDS: INSULIN ASPART (NovoLOG) 100 UNIT/ML VIAL SQ SCH ×4 (08:50→20:35)
[2019-10-28] MEDS: metroNIDAZOLE 500 MG TAB PO SCH ×3 (08:52→20:29)
[2019-10-28] MEDS: predniSONE 20 MG TAB PO SCH (08:52)
[2019-10-28] MEDS: LACTOBACILLUS ACIDOPH & BULGAR 1 EACH PACKET PO SCH ×4 (08:52→20:29)
[2019-10-28] MEDS: HEPARIN SODIUM,PORCINE 5,000 UNIT/ML 1 ML VIAL SQ SCH ×2 (08:53→16:30)
[2019-10-28] MEDS: amLODIPine 5 MG TAB PO SCH (08:53)
[2019-10-28] MEDS: FENOFIBRATE 160 MG TAB PO SCH (08:53)
[2019-10-28] MEDS: CEFDINIR 300 MG CAP PO SCH ×2 (08:53→20:29)
[2019-10-28] MEDS: DILTIAZEM CD 180 MG CAP.ER.24H PO SCH (08:53)
[2019-10-28 12:11] LABS: Glucose,Whole Blood 119 mg/dL (75-99)
--- NOTE | 2019-10-28 13:33 | P.DS ---
Providers Date of admission: 10/24/19 20:28 Expected date of discharge: 10/28/19 Attending physician: Sarah Bee MD Consults: Mailing Manager Dr. Sylvester Whitaker was consulted Primary care physician: Marie Dean MD Hospital Course: The patient is a 59-year-old female with a PMH of type 2 diabetes mellitus, hypertension, COPD with chronic hypoxic respiratory failure on 2.5 L NC O2 at home continuously, and hypothyroidism who presented to the ED with complained of abdominal pain, diarrhea, nausea, and vomiting. The patient reported that she recently had some Japanese food over the weekend, and that soon after developed her vomiting and diarrhea. She reported multiple watery stools with no blood. Due to her significant nausea, she had been unable to eat or drink much since her onset of symptoms. She otherwise denied any additional complaints including chest pain, shortness of breath, cough, fever, chills, recent travel, or sick contacts. She underwent an extensive evaluation in the emergency room with an abdomen/pelvis computed tomography scan which revealed nonspecific colitis with a right lower lobe infiltrate. EKG revealed sinus tachycardia with PVCs at 111 bpm with a bifascicular block. Laboratory evaluation revealed a lactic acid of 2.3, WBC count 18, hemoglobin 14.7, sodium 134, potassium 4.2, BUN 70, creatinine 1.31, and glucose 121. Patient was admitted and received IV antibiotics, antiemitics, and IV fluids. During the course of patient's hospital stay, patient was found to have difficult socioeconomic issues at home. This patient improved symptomatically with treatment. However, due to her socioeconomic issues patient was very resistant to be discharged. It was found that patient was not wanted at the home the she is living in and family were not able to care for her because they were afraid of getting to sick. Case management was doing everything they could to help her find halfway. Patient does have COPD and is on home oxygen. Patient was started on oral prednisone to help improve her breathing with breathing treatments. There was evidence of pneumonia picked up on CT. Because patient will not have her home oxygen with her upon discharge, a home oxygen evaluation was done so oxygen could be provided upon discharge. Gastroenterology was consulted to during hospital stay and assisted in the management of the patient. Labs on discharge revealed a whi te blood cell count of 21.4 secondary to oral steroids. Hemoglobin was 13.2 hematocrit was 42.2. Platelets were 320. Creatinine did improve from 1.31 to 0.85 upon discharge. Physical exam: General: [non toxic obese], [no distress], [appears at stated age] Derm: [warm], [dry] Head: [atraumatic], [normocephalic], [symmetric] Eyes: [EOMI], [no lid lag], [anicteric sclera] Mouth: [no lip lesion], [mucus membranes moist] Cardiovascular: [S1S2 reg], [no murmur], [positive posterior tibial pulse bilateral], Lungs: [ild b/l expiratory wheezing], [no rhonchi, no rales] , [no accessory muscle use] Abdominal: [soft], [ nontender to palpation], [no guarding], [no appreciable organomegaly] Ext: [no gross muscle atrophy], [no edema], [no contractures] Neuro: [ CN II-XI grossly intact], [no focal neuro deficits] Psych: [Alert], [oriented], [flat affect] Assessment: Colitis improved. - IV antibiotics changed to oral antibiotics upon discharge Bifascicular block, new finding on EKG -Patient denying chest pain or shortness of breath -Cardiac monitoring was insignificant PARMINDER, prerenal Resolved -Likely due to poor oral intake in setting of diarrhea and vomiting Wheezing, with hx of COPD -Duonebs -Steroid taper upon discharge Type II DM -PATRICIA with FS Chronic conditions: HTN, HLD -C/w home meds DVT prophylaxis during hopital stay provided Health Concerns: Patient is a diabetic with COPD and hypothyroid. Patent is non-compliant. Pertinent Studies: 10/24/19: CT of the abdomen revealed wall thickening involving the left colon involving distal transverse colon and splenic flexure and descending colon suggestive of a nonspecific colitis. There is at just and large bowel mesenteric edema. CT also revealed right lower lobe pneumonia and atelectasis. Repeat chest x-ray on 10/26/2019 revealed chronic parenchymal changes and cardiomegaly without suspicious acute pulmonary process identified on current study Patient Condition at Discharge: Stable Plan - Discharge Summary Discharge Rx Participant: No New Discharge Prescriptions: New predniSONE [Deltasone] 40 mg PO DAILY #30 tab metroNIDAZOLE [Flagyl] 500 mg PO TID #21 tab Lactobacillus Acidoph & Bulgar [Lactinex] 1 each PO QID #30 packet Cefdinir [Omnicef] 300 mg PO BID 7 Days #14 cap No Action Omeprazole 20 mg PO DAILY@0800 Albuterol Inhaler [Ventolin Hfa Inhaler] 2 puff INHALATION RT-Q6H PRN PRN Reason: Shortness Of Breath metFORMIN HCL [Glucophage] 1,000 mg PO BID@0800,1999 Levothyroxine Sodium 200 mcg PO DAILY@0800 Diltiazem HCl [Cardizem CD] 360 mg PO DAILY@0800 Ipratropium-Albuterol Nebulize [Duoneb 0.5 mg-3 mg/3 ml Soln] 3 ml INHALATION RT-QID Fluticasone Nasal [place] [Flonase Nasal [place]] 1 spray EA NOSTRIL BID PRN PRN Reason: Allergy Symptoms glipiZIDE [Glucotrol] 10 mg PO DAILY@0800 Loperamide [Imodium] 2 mg PO QID PRN PRN Reason: Diarrhea amLODIPine [Norvasc] 5 mg PO DAILY #30 tab Fenofibrate Nanocrystallized [Fenofibrate] 145 mg PO DAILY Tiotropium 18 Mcg/Puff [Spiriva] 1 cap INHALATION RT-DAILY Discharge Medication List Albuterol Inhaler [Ventolin Hfa Inhaler] 2 puff INHALATION RT-Q6H PRN 04/12/19 [History] Diltiazem HCl [Cardizem CD] 360 mg PO DAILY@0800 04/12/19 [History] Ipratropium-Albuterol Nebulize [Duoneb 0.5 mg-3 mg/3 ml Soln] 3 ml INHALATION RT-QID 04/12/19 [History] Levothyroxine Sodium 200 mcg PO DAILY@0800 04/12/19 [History] Omeprazole 20 mg PO DAILY@0800 04/12/19 [History] metFORMIN HCL [Glucophage] 1,000 mg PO BID@0800,199904/12/19 [History] Fluticasone Nasal [place] [Flonase Nasal [place]] 1 spray EA NOSTRIL BID PRN 09/11/19 [History] Loperamide [Imodium] 2 mg PO QID PRN 09/11/19 [History] glipiZIDE [Glucotrol] 10 mg PO DAILY@0800 09/11/19 [History] amLODIPine [Norvasc] 5 mg PO DAILY #30 tab 09/15/19 [Rx] Fenofibrate Nanocrystallized [Fenofibrate] 145 mg PO DAILY 10/24/19 [History] Tiotropium 18 Mcg/Puff [Spiriva] 1 cap INHALATION RT-DAILY 10/24/19 [History] Cefdinir [Omnicef] 300 mg PO BID 7 Days #14 cap 10/28/19 [Rx] Lactobacillus Acidoph & Bulgar [Lactinex] 1 each PO QID #30 packet 10/28/19 [Rx] metroNIDAZOLE [Flagyl] 500 mg PO TID #21 tab 10/28/19 [Rx] predniSONE [Deltasone] 40 mg PO DAILY #30 tab 10/28/19 [Rx] Follow up Appointment(s)/Referral(s): Marie Dean MD [Primary Care Provider] - 1-2 days [facility], [NON-STAFF] - Activity/Diet/Wound Care/Special Instructions: Diabetic 1500 calorie diet Discharge Disposition: HOME SELF-CARE Pending Studies Pending Results: none
[2019-10-28] MEDS ORDERED: LOPERAMIDE 2 MG CAP PO PRN (13:44)
[2019-10-28 17:25] LABS: Glucose,Whole Blood 228 mg/dL (75-99)
[2019-10-28] MEDS: CALCIUM CARBONATE 500 MG CHEWABLE PO PRN (19:37)
[2019-10-28 20:03] LABS: Glucose,Whole Blood 334 mg/dL (75-99)
[2019-10-28 21:24] VITALS: RESP 20
[2019-10-29] MEDS: HEPARIN SODIUM,PORCINE 5,000 UNIT/ML 1 ML VIAL SQ SCH ×2 (00:54→08:52)
[2019-10-29] MEDS: LEVOTHYROXINE 100 MCG TAB PO SCH (05:27)
[2019-10-29 06:29] VITALS: BP 158/76; TEMP 97.4
[2019-10-29 07:21] LABS: Glucose,Whole Blood 100 mg/dL (75-99)
[2019-10-29] MEDS: INSULIN ASPART (NovoLOG) 100 UNIT/ML VIAL SQ SCH ×2 (07:28→12:26)
[2019-10-29] MEDS: IPRATROPIUM-ALBUTEROL 3 ML NEB INHALATION SCH ×2 (07:47→11:32)
[2019-10-29 07:59] VITALS: PULSE 82
[2019-10-29] MEDS: amLODIPine 5 MG TAB PO SCH (08:52)
[2019-10-29] MEDS: metroNIDAZOLE 500 MG TAB PO SCH (08:52)
[2019-10-29] MEDS: FENOFIBRATE 160 MG TAB PO SCH (08:52)
[2019-10-29] MEDS: predniSONE 20 MG TAB PO SCH (08:52)
[2019-10-29] MEDS: LACTOBACILLUS ACIDOPH & BULGAR 1 EACH PACKET PO SCH ×2 (08:52→12:26)
[2019-10-29] MEDS: DILTIAZEM CD 180 MG CAP.ER.24H PO SCH (08:53)
[2019-10-29] MEDS: CEFDINIR 300 MG CAP PO SCH (08:53)
[2019-10-29] MEDS: ACETAMINOPHEN TAB 325 MG TAB PO PRN (08:59)
[2019-10-29 12:29] LABS: Glucose,Whole Blood 176 mg/dL (75-99)
== END 2019-10-29 16:19 | disposition home or self-care (01) | DRG 385 ==
LOC: EC 17:04 → 6NMEDSUR 20:28
PROVIDERS: ADMIT Internal Medicine; ATTEND Internal Medicine
DX: K51.50 Left sided colitis without complications (principal); J18.9 Pneumonia, unspecified organism; J96.21 Acute and chronic respiratory failure with hypoxia; J44.0 Chronic obstructive pulmonary disease with (acute) lower respiratory infection; J44.1 Chronic obstructive pulmonary disease with (acute) exacerbation; E87.2 Acidosis; I45.2 Bifascicular block; N17.9 Acute kidney failure, unspecified; Z68.41 Body mass index [BMI] 40.0-44.9, adult; E03.9 Hypothyroidism, unspecified; E11.9 Type 2 diabetes mellitus without complications; E78.5 Hyperlipidemia, unspecified; F17.210 Nicotine dependence, cigarettes, uncomplicated; I10 Essential (primary) hypertension; K42.9 Umbilical hernia without obstruction or gangrene; K57.30 Diverticulosis of large intestine without perforation or abscess without bleeding; T38.0X5A Adverse effect of glucocorticoids and synthetic analogues, initial encounter; D72.829 Elevated white blood cell count, unspecified; Z79.84 Long term (current) use of oral hypoglycemic drugs; Z79.890 Hormone replacement therapy; Z79.899 Other long term (current) drug therapy; Z82.49 Family history of ischemic heart disease and other diseases of the circulatory system; Z82.5 Family history of asthma and other chronic lower respiratory diseases; Z83.3 Family history of diabetes mellitus; Z91.19 Patient's noncompliance with other medical treatment and regimen; Z99.81 Dependence on supplemental oxygen; K08.409 Partial loss of teeth, unspecified cause, unspecified class; E66.9 Obesity, unspecified; Z88.6 Allergy status to analgesic agent
CPT/HCPCS: 36415; 71045; 74177; 80048; 80053; 81001; 83605; 83690; 83735; 84100; 84484; 85025; 85027; 87040; 87324; 93005; 94640; 94760; 96361; 96365; 96375; 99285

== ENCOUNTER 2020-01-03 05:36 | Inpatient (IN) | payer MEDICARE, OTHER ==
[2020-01-03] MEDS ORDERED: DICYCLOMINE 10 MG/ML 2 ML AMP IM STA (06:12)
[2020-01-03] MEDS ORDERED: SODIUM CHLORIDE 0.9% 500 ML 500 ML IV STA (06:12)
[2020-01-03] MEDS ORDERED: SODIUM CHLORIDE 0.9% 1,000 ML IV STA (06:12)
[2020-01-03] MEDS ORDERED: ONDANSETRON 4 MG/2 ML VIAL IVP STA (06:12)
--- NOTE | 2020-01-03 06:22 | ED ---
Abdominal Pain HPI <Vinay Curiel - Last Filed: 01/03/20 09:04> - General Source: patient, EMS, RN notes reviewed Mode of arrival: EMS Limitations: no limitations <Jameson Mahoney - Last Filed: 01/03/20 09:16> - General Chief Complaint: Abdominal Pain Stated Complaint: Abd pain Time Seen by Provider: 01/03/20 06:02 - History of Present Illness Initial Comments: This is a 59-year-old female presents emergency Department chief complaint of abdominal pain, nausea vomiting diarrhea. Patient states started last night progressively worsened overnight. Patient recent hospitalization for acute co litis. Patient states it from it causes. Patient states pain is worse last time. Patient denies any melena or hematochezia. Denies any hematemesis or coffee-ground emesis. Denies any known fevers chills no chest pain or shortness breath from her usual baseline. Patient states she is oxygen dependent on 2 L. Patient said no recent abdominal surgeries. Patient denies any other complaints. (Jameson Mahoney) - Related Data Home Medications Medication Instructions Recorded Confirmed Albuterol Inhaler (Mhu) [Ventolin 2 puff INHALATION RT-Q6H PRN 04/12/19 10/24/19 Hfa Inhaler (Mhu)] Diltiazem HCl [Cardizem CD] 360 mg PO DAILY@79904/12/19 10/24/19 Ipratropium-Albuterol Nebulize 3 ml INHALATION RT-QID 04/12/19 10/24/19 [Duoneb 0.5 mg-3 mg/3 ml Soln] Levothyroxine Sodium 200 mcg PO DAILY@79904/12/19 10/24/19 Omeprazole 20 mg PO DAILY@79904/12/19 10/24/19 metFORMIN HCL [Glucophage] 1,000 mg PO BID@08,199904/12/19 10/24/19 Fluticasone Nasal [place] [Flonase 1 spray EA NOSTRIL BID PRN 09/11/19 10/24/19 Nasal [place]] Loperamide [Imodium] 2 mg PO QID PRN 09/11/19 10/24/19 glipiZIDE [Glucotrol] 10 mg PO DAILY@79909/11/19 10/24/19 Fenofibrate Nanocrystallized 145 mg PO DAILY 10/24/19 10/24/19 [Fenofibrate] Tiotropium 18 Mcg/Puff [Spiriva] 1 cap INHALATION RT-DAILY 10/24/19 10/24/19 Previous Rx's Medication Instructions Recorded amLODIPine [Norvasc] 5 mg PO DAILY #30 tab 09/15/19 Cefdinir [Omnicef] 300 mg PO BID 7 Days #14 cap 10/28/19 Lactobacillus Acidoph & Bulgar 1 each PO QID #30 packet 10/28/19 [Lactinex] metroNIDAZOLE [Flagyl] 500 mg PO TID #21 tab 10/28/19 predniSONE [Deltasone] 40 mg PO DAILY #30 tab 10/28/19 Allergies Allergy/AdvReac Type Severity Reaction Status Date / Time dicyclomine [From Bentyl] Allergy Rapid Verified 01/03/20 08:33 Heart Rate NSAIDS (Non-Steroidal AdvReac ULCERS Verified 01/03/20 05:45 Anti-Inflamma Review of Systems ROS Other: All systems not noted in ROS Statement are negative. <Vinay Curiel - Last Filed: 01/03/20 09:04> ROS Other: All systems not noted in ROS Statement are negative. <Jameson Mahoney - Last Filed: 01/03/20 09:16> ROS Statement: Those systems with pertinent positive or pertinent negative responses have been documented in the HPI. Past Medical History Past Medical History: Asthma, COPD, Diabetes Mellitus, Hypertension, Thyroid Disorder Additional Past Medical History / Comment(s): Hernia History of Any Multi-Drug Resistant Organisms: None Reported Past Surgical History: Orthopedic Surgery Additional Past Surgical History / Comment(s): teeth extraction 2 weeks ago total top 5-6 teeth total. Past Anesthesia/Blood Transfusion Reactions: No Reported Reaction Past Psychological History: No Psychological Hx Reported Smoking Status: Former smoker Past Alcohol Use History: None Reported Past Drug Use History: None Reported - Past Family History Father Family Medical History: Liver Disease Mother Family Medical History: COPD, Diabetes Mellitus, Hypertension <Jameson Mahoney - Last Filed: 01/03/20 09:16> General Exam General appearance: alert, in no apparent distress Head exam: Present: atraumatic, normocephalic, normal inspection Eye exam: Present: normal appearance, PERRL, EOMI. Absent: scleral icterus, conjunctival injection, periorbital swelling ENT exam: Present: normal oropharynx, mucous membranes moist, TM's normal bilaterally, normal external ear exam. Absent: normal exam (Nasal cannula in place) Neck exam: Present: normal inspection, full ROM. Absent: tenderness, meningismus, lymphadenopathy Respiratory exam: Present: wheezes (Minimal), decreased breath sounds. Absent: normal lung sounds bilaterally, respiratory distress, rales, rhonchi, stridor Cardiovascular Exam: Present: regular rate, normal rhythm, normal heart sounds. Absent: systolic murmur, diastolic murmur, rubs, gallop, clicks GI/Abdominal exam: Present: soft, tenderness ([id number]-[id number] lower), normal bowel sounds. Absent: distended, guarding, rebound, rigid Back exam: Absent: CVA tenderness (R), CVA tenderness (L) Neurological exam: Present: alert, oriented X3 Skin exam: Present: warm, dry, intact, normal color. Absent: rash <Jameson Mahoney - Last Filed: 01/03/20 09:16> Course Vital Signs 01/03/20 01/03/20 01/03/20 05:40 07:30 07:51 Temperature 98.1 F Pulse Rate 89 126 H 106 H Respiratory 18 Rate Blood Pressure 143/100 O2 Sat by Pulse 91 L Oximetry 01/03/20 01/03/20 01/03/20 08:00 08:10 08:40 Temperature Pulse Rate 86 80 74 Respiratory 24 24 24 Rate Blood Pressure 152/82 74/36 87/55 O2 Sat by Pulse 97 97 99 Oximetry 01/03/20 01/03/20 08:52 09:07 Temperature Pulse Rate 74 69 Respiratory Rate Blood Pressure 94/55 O2 Sat by Pulse 98 Oximetry Medical Decision Making - Lab Data Result diagrams: 01/03/20 06:10 01/03/20 06:10 <Vinay Curiel - Last Filed: 01/03/20 09:04> - Lab Data Result diagrams: 01/03/20 06:10 01/03/20 06:10 - EKG Data -: EKG Interpreted by Ny <Jameson Mahoney - Last Filed: 01/03/20 09:16> - Medical Decision Making 59-year-old female had presented initially with abdominal pain, vomiting and diarrhea which is somewhat of a chronic issue for this patient. In the emergency department she is given symptomatic treatment including Zofran and Bentyl, shortly after Bentyl injection she did develop moderate to severe respiratory distress with hypoxia. She is an oxygen dependent COPD patient at baseline. She had mildly elevated blood pressures and there was concern by the previous physician that the patient may have had flash pulmonary edema versus ALLERGIC reaction. She was given Ativan, morphine, as well as nitroglycerin and steroids. Her respiratory status improved significantly. She did become hypotensive after this treatment and nitroglycerin was discontinued. Given the degree of her suspected ALLERGIC reaction she was given intramuscular epinephrine with improvement in respiratory status and blood pressure. After 1 L of IV hydration her blood pressure is 100/55. She is appropriately responsive and has significant improvement in her respiratory status. Given the degree of COPD and respiratory distress she will be admitted on BiPAP for treatment of COPD exacerbation and ALLERGIC reaction. Patient has been admitted to Dr. Sheffield who has seen the patient in the emergency department. (Vinay Curiel) - Lab Data Lab Results 01/03/20 01/03/20 01/03/20 Range/Units 06:10 06:10 06:10 WBC 9.9 (3.8-10.6) k/uL RBC 5.02 (3.80-5.40) m/uL Hgb 13.5 (11.4-16.0) gm/dL Hct 44.1 (34.0-46.0) % MCV 87.9 (80.0-100.0) fL MCH 26.8 (25.0-35.0) pg MCHC 30.5 L (31.0-37.0) g/dL RDW 18.9 H (11.5-15.5) % Plt Count 382 (150-450) k/uL Neutrophils % 73 % Lymphocytes % 18 % Monocytes % 3 % Eosinophils % 5 % Basophils % 1 % Neutrophils # 7.2 (1.3-7.7) k/uL Lymphocytes # 1.8 (1.0-4.8) k/uL Monocytes # 0.3 (0-1.0) k/uL Eosinophils # 0.5 (0-0.7) k/uL Basophils # 0.1 (0-0.2) k/uL Hypochromasia Slight Anisocytosis Slight VBG pH (7.31-7.41) VBG pCO2 (37-51) mmHg VBG HCO3 (24-28) mmol/L Sodium 138 (137-145) mmol/L Potassium 5.0 (3.5-5.1) mmol/L Chloride 109 H (98-107) mmol/L Carbon Dioxide 18 L (22-30) mmol/L Anion Gap 11 mmol/L BUN 23 H (7-17) mg/dL Creatinine 1.22 H (0.52-1.04) mg/dL Est GFR (CKD-EPI)AfAm 56 (>60 ml/min/1.73 sqM) Est GFR (CKD-EPI)NonAf 49 (>60 ml/min/1.73 sqM) Glucose 179 H (74-99) mg/dL Plasma Lactic Acid Angus 1.4 (0.7-2.0) mmol/L Calcium 9.9 (8.4-10.2) mg/dL Total Bilirubin 0.4 (0.2-1.3) mg/dL AST 20 (14-36) U/L ALT 8 (4-34) U/L Alkaline Phosphatase 115 (38-126) U/L Troponin I (0.000-0.034) ng/mL NT-Pro-B Natriuret Pep pg/mL Total Protein 7.1 (6.3-8.2) g/dL Albumin 3.5 (3.5-5.0) g/dL Lipase 70 (23-300) U/L 01/03/20 01/03/20 01/03/20 Range/Units 06:10 06:10 08:05 WBC (3.8-10.6) k/uL RBC (3.80-5.40) m/uL Hgb (11.4-16.0) gm/dL Hct (34.0-46.0) % MCV (80.0-100.0) fL MCH (25.0-35.0) pg MCHC (31.0-37.0) g/dL RDW (11.5-15.5) % Plt Count (150-450) k/uL Neutrophils % % Lymphocytes % % Monocytes % % Eosinophils % % Basophils % % Neutrophils # (1.3-7.7) k/uL Lymphocytes # (1.0-4.8) k/uL Monocytes # (0-1.0) k/uL Eosinophils # (0-0.7) k/uL Basophils # (0-0.2) k/uL Hypochromasia Anisocytosis VBG pH 7.22 L (7.31-7.41) VBG pCO2 57 H (37-51) mmHg VBG HCO3 22 L (24-28) mmol/L Sodium (137-145) mmol/L Potassium (3.5-5.1) mmol/L Chloride (98-107) mmol/L Carbon Dioxide (22-30) mmol/L Anion Gap mmol/L BUN (7-17) mg/dL Creatinine (0.52-1.04) mg/dL Est GFR (CKD-EPI)AfAm (>60 ml/min/1.73 sqM) Est GFR (CKD-EPI)NonAf (>60 ml/min/1.73 sqM) Glucose (74-99) mg/dL Plasma Lactic Acid Angus (0.7-2.0) mmol/L Calcium (8.4-10.2) mg/dL Total Bilirubin (0.2-1.3) mg/dL AST (14-36) U/L ALT (4-34) U/L Alkaline Phosphatase (38-126) U/L Troponin I <0.012 (0.000-0.034) ng/mL NT-Pro-B Natriuret Pep 1730 pg/mL Total Protein (6.3-8.2) g/dL Albumin (3.5-5.0) g/dL Lipase (23-300) U/L - EKG Data EKG Comments: EKG performed 7:18 sinus tachycardia with rate of 1:31 PM 134 QRS 84, QT/QTC 302/445 (Jameson Mahoney) Critical Care Time Critical Care Time: Yes Total Critical Care Time: 35 <Vinay Curiel - Last Filed: 01/03/20 09:04> Disposition <Vinay Curiel - Last Filed: 01/03/20 09:04> <Jameson Mahoney - Last Filed: 01/03/20 09:16> Clinical Impression: Nausea vomiting and diarrhea, Allergic reaction, COPD (chronic obstructive pulmonary disease), Respiratory distress, acute Disposition: ADMITTED IP TO THIS HOSP Condition: Serious Referrals: Marie Dean MD [Primary Care Provider] - 1-2 days
[2020-01-03 06:37] LABS: Anisocytosis Slight; Basophils # (A) 0.1 k/uL (0-0.2); Basophils % (A) 1 %; Eosinophils # (A) 0.5 k/uL (0-0.7); Eosinophils % (A) 5 %; HCT 44.1 % (34.0-46.0); HGB 13.5 gm/dL (11.4-16.0); Hypochromasia Slight; Lymphocytes # (A) 1.8 k/uL (1.0-4.8); Lymphocytes % (A) 18 %; MCH 26.8 pg (25.0-35.0); MCHC 30.5 g/dL (31.0-37.0); MCV 87.9 fL (80.0-100.0); Mean Platelet Volume 7.8; Monocytes # (A) 0.3 k/uL (0-1.0); Monocytes % (A) 3 %; Neutrophils # (A) 7.2 k/uL (1.3-7.7); Neutrophils % (A) 73 %; Platelet Count 382 k/uL (150-450); RBC 5.02 m/uL (3.80-5.40); RDW 18.9 % (11.5-15.5); WBC 9.9 k/uL (3.8-10.6)
[2020-01-03 06:49] LABS: Albumin 3.5 g/dL (3.5-5.0); Calcium 9.9 mg/dL (8.4-10.2); Total Bilirubin 0.4 mg/dL (0.2-1.3); Total Protein 7.1 g/dL (6.3-8.2)
[2020-01-03] MEDS ORDERED: IPRATROPIUM-ALBUTEROL 3 ML NEB INHALATION STA (06:54)
[2020-01-03] MEDS ORDERED: methylPREDNISolone SOD SUCCI 125 MG/2 ML VIAL IV STA (06:59)
[2020-01-03] MEDS ORDERED: NITROGLYCERIN-D5W PMX 50 MG in DEXTROSE/WATER 1 250ML.BAG IV ONE (07:00)
[2020-01-03] MEDS ORDERED: MORPHINE SULFATE 4 MG/ML SYRINGE IVP STA (07:13)
--- NOTE | 2020-01-03 07:13 | XR ---
EXAMINATION TYPE: XR chest 1V portable DATE OF EXAM: 01/03/2020 COMPARISON: 10/26/2019 HISTORY: Shortness of breath and difficulty breathing TECHNIQUE: Single frontal view of the chest is obtained. FINDINGS: Cardiomediastinal silhouette is enlarged. Minimal pulmonary vascular congestion in compari son to the prior. No sizable pleural effusion or pneumothorax. Soft tissues are grossly unremarkable. IMPRESSION: Minimal pulmonary vascular congestion has developed in comparison to the prior. Consider cardiogenic fluid overload.
[2020-01-03] MEDS ORDERED: LORazepam 2 MG/ML INJ IV STA (07:23)
[2020-01-03] MEDS ORDERED: FUROSEMIDE 10 MG/ML 4 ML VIAL IV STA (07:44)
[2020-01-03 08:22] LABS: VBG PH 7.22 (7.31-7.41)
[2020-01-03] MEDS ORDERED: ALBUTEROL NEBULIZED 2.5 MG/3 ML INHALATION STA (08:27)
[2020-01-03] MEDS ORDERED: EPINEPHrine 1 MG/ML 1 ML AMP IM STA (08:38)
[2020-01-03] MEDS: SODIUM CHLORIDE 0.9% 1,000 ML IV SCH ×2 (09:43→16:43)
[2020-01-03] MEDS: IPRATROPIUM-ALBUTEROL 3 ML NEB INHALATION SCH ×3 (11:57→21:22)
[2020-01-03] MEDS ORDERED: methylPREDNISolone SOD SUCCI 125 MG/2 ML VIAL IV SCH (12:00)
[2020-01-03 13:01] LABS: Amorphous Sediment,Urine Rare /hpf; Appearance,Urine Cloudy (Clear); Bacteria,Urine Rare /hpf; Bilirubin,Urine 1+ (Negative); Blood,Urine Negative (Negative); Color,Urine Dark Brown; Glucose,Urine (UA) Negative (Negative); Hyaline Casts,Urine 39 /lpf (0-2); Ketones,Urine Negative (Negative); Leukocyte Esterase,Urine Negative (Negative); Mucus,Urine Moderate /hpf; Nitrite,Urine Negative (Negative); Protein,Urine 1+ (Negative); RBC,Urine 1 /hpf (0-5); Specific Gravity,Urine 1.027 (1.001-1.035); Squamous Epithelial Cell,Urine 1 /hpf (0-4); WBC,Urine 3 /hpf (0-5)
[2020-01-03] MEDS ORDERED: FLUTICASONE 50MCG/SPRAY NASAL 16GM EA NOSTRIL PRN (13:29)
[2020-01-03] MEDS ORDERED: ALBUTEROL NEBULIZED 2.5 MG/3 ML INHALATION PRN (13:29)
--- NOTE | 2020-01-03 13:42 | P.HPIM ---
History of Present Illness H&P Date: 01/03/20 Chief Complaint: vomiting and diarrhea 59-year-old female presents emergency department with abdominal pain, nausea, vomiting and diarrhea. Hx taken from ER records and staff as patient is not very forthcoming with information due to letharg and being on bipap. Symptoms started last night. She was recently hospitalized for acute colitis. No melena or hematochezia reported. No fevers chills no chest pain. She is oxygen dependent on 2L due to COPD. In the emergency department she was given zofran and bentyl, shortly after Bentyl injection she did develop moderate to severe respiratory distress with hypoxia. She had mildly elevated blood pressures and her CXR showed some fluid overload. She was treated with epinephrine, ativan, morphine, as well as nitroglycerin and steroids for suspected allergic reaction to bentyl. Her respiratory status improved significantly. She was started on bipap as well. Her bp dropped to the 70s-80s systolic and she was given 1 L of IV hydration which brought her blood pressure up to 100/55. In the ER venous blood gas revealed PH of 7.22, PCO2 27, labs showed low bicarb 18, Cr 1.22. UA was negative for pyuria. CBC unremarkable. She was admitted for further evaluation and management. Review of Systems Complete ROS performed, pertinent positives per HPI otherwise negative. Past Medical History Past Medical History: Asthma, COPD, Diabetes Mellitus, Hypertension, Thyroid Disorder Additional Past Medical History / Comment(s): Hernia History of Any Multi-Drug Resistant Organisms: None Reported Past Surgical History: Orthopedic Surgery Additional Past Surgical History / Comment(s): teeth extraction 2 weeks ago total top 5-6 teeth total. Past Anesthesia/Blood Transfusion Reactions: No Reported Reaction Past Psychological History: No Psychological Hx Reported Smoking Status: Former smoker Past Alcohol Use History: None Reported Past Drug Use History: None Reported - Past Family History Father Family Medical History: Liver Disease Mother Family Medical History: COPD, Diabetes Mellitus, Hypertension Medications and Allergies Home Medications Medication Instructions Recorded Confirmed Type Albuterol Inhaler (Mhu) [Ventolin 2 puff INHALATION RT-Q6H PRN 04/12/19 10/24/19 History Hfa Inhaler (Mhu)] Diltiazem HCl [Cardizem CD] 360 mg PO DAILY@0800 04/12/19 10/24/19 History Ipratropium-Albuterol Nebulize 3 ml INHALATION RT-QID 04/12/19 10/24/19 History [Duoneb 0.5 mg-3 mg/3 ml Soln] Levothyroxine Sodium 200 mcg PO DAILY@0800 04/12/19 10/24/19 History Omeprazole 20 mg PO DAILY@0804/12/19 10/24/19 History metFORMIN HCL [Glucophage] 1,000 mg PO BID@08,199904/12/19 10/24/19 History Fluticasone Nasal [place] [Flonase 1 spray EA NOSTRIL BID PRN 09/11/19 10/24/19 History Nasal [place]] Loperamide [Imodium] 2 mg PO QID PRN 09/11/19 10/24/19 History glipiZIDE [Glucotrol] 10 mg PO DAILY@0800 09/11/19 10/24/19 History amLODIPine [Norvasc] 5 mg PO DAILY #30 tab 09/15/19 10/24/19 Rx Fenofibrate Nanocrystallized 145 mg PO DAILY 10/24/19 10/24/19 History [Fenofibrate] Tiotropium 18 Mcg/Puff [Spiriva] 1 cap INHALATION RT-DAILY 10/24/19 10/24/19 H istory Cefdinir [Omnicef] 300 mg PO BID 7 Days #14 cap 10/28/19 Rx Lactobacillus Acidoph & Bulgar 1 each PO QID #30 packet 10/28/19 Rx [Lactinex] metroNIDAZOLE [Flagyl] 500 mg PO TID #21 tab 10/28/19 Rx predniSONE [Deltasone] 40 mg PO DAILY #30 tab 10/28/19 Rx Allergies Allergy/AdvReac Type Severity Reaction Status Date / Time dicyclomine [From Bentyl] Allergy Rapid Verified 01/03/20 08:33 Heart Rate NSAIDS (Non-Steroidal AdvReac ULCERS Verified 01/03/20 05:45 Anti-Inflamma Physical Exam Vitals: Vital Signs Temp Pulse Pulse Resp BP BP Pulse Ox 01/03/20 12:10 89 01/03/20 11:57 97.6 F 77 98 22 146/90 99 01/03/20 09:30 77 24 102/61 99 01/03/20 09:24 75 01/03/20 09:07 69 01/03/20 08:52 74 94/55 98 01/03/20 08:40 74 24 87/55 99 01/03/20 08:10 80 24 74/36 97 01/03/20 08:00 86 24 152/82 97 01/03/20 07:51 106 H 01/03/20 07:30 126 H 01/03/20 05:40 98.1 F 89 18 143/100 91 L Intake and Output 01/02/20 01/03/20 01/03/20 22:59 06:59 14:59 Other: Weight 90.718 kg Constitutional: No acute distress, conversant, pleasant Eyes:Anicteric sclerae, moist conjunctiva, no lid-lag, PERRLA, ENMT: Oropharynx clear, no erythema, exudates Neck: Supple, FROM, no masses, or JVD, No carotid bruits, No thyromegaly Lungs: Clear to auscultation, Clear to percussion, Normal respiratory effort, no accessory muscle use Cardiovascular: Heart regular in rate and rhythm, No murmurs, gallops, or rubs, No peripheral edema Abdominal: Soft, Nontender, no guarding, rebound or rigidity, Normoactive bowel sounds, No hepatomegaly, No splenomegaly, No palpable mass Skin: Normal temperature, tone, texture, turgor, no induration, No subcutaneous nodules, No rash, lesions, No ulcers Extremities: No digital cyanosis, No clubbing, Pedal pulses intact and symmetrical, Radial pulses intact and symmetrical, No calf tenderness Psychiatric: Alert and oriented to person, place and time, appropriate affect, intact judgement Neuro: Muscles Strength 5/5 in all 4 extremities, Sensation to light touch grossly present throughout, Cranial nerves II-XII grossly intact, no focal sensory deficits Results CBC & Chem 7: 01/03/20 06:10 01/03/20 06:10 Labs: Abnormal Lab Results - Last 24 Hours (Table) 01/03/20 01/03/20 01/03/20 Range/Units 06:10 06:10 08:05 MCHC 30.5 L (31.0-37.0) g/dL RDW 18.9 H (11.5-15.5) % VBG pH 7.22 L (7.31-7.41) VBG pCO2 57 H (37-51) mmHg VBG HCO3 22 L (24-28) mmol/L Chloride 109 H (98-107) mmol/L Carbon Dioxide 18 L (22-30) mmol/L BUN 23 H (7-17) mg/dL Creatinine 1.22 H (0.52-1.04) mg/dL Glucose 179 H (74-99) mg/dL Urine Appearance (Clear) Urine Protein (Negative) Urine Bilirubin (Negative) Amorphous Sediment (None) /hpf Urine Bacteria (None) /hpf Hyaline Casts (0-2) /lpf Urine Mucus (None) /hpf 01/03/20 Range/Units 12:35 MCHC (31.0-37.0) g/dL RDW (11.5-15.5) % VBG pH (7.31-7.41) VBG pCO2 (37-51) mmHg VBG HCO3 (24-28) mmol/L Chloride (98-107) mmol/L Carbon Dioxide (22-30) mmol/L BUN (7-17) mg/dL Creatinine (0.52-1.04) mg/dL Glucose (74-99) mg/dL Urine Appearance Cloudy H (Clear) Urine Protein 1+ H (Negative) Urine Bilirubin 1+ H (Negative) Amorphous Sediment Rare H (None) /hpf Urine Bacteria Rare H (None) /hpf Hyaline Casts 39 H (0-2) /lpf Urine Mucus Moderate H (None) /hpf Assessment and Plan Plan: Allergic reaction Acute CHF exacerbation, unknown type Acute on chronic hypoxic respiratory failure Vomiting and diarrhea CKD 3 DM 2 HTN Allergic reaction resolved Bipap Steroids and bronchodilators. Follow up ABG Lasix IV BID Echo SSI with blood sugar checks every 6hrs Hold bp meds as she is currently slightly hypotensive Rest of medical issues stable Admitted to inpatient expected length of stay more than 2 midnights
[2020-01-03 14:26] LABS: ABG Base Excess -4.4 mmol/L; ABG HCO3 22 mmol/L (21-25); ABG Oxygen Saturation 93.1 % (94-97); ABG PCO2 45 mmHg (35-45); ABG PO2 77 mmHg (83-108); ABG TCO2 24 mmol/L (19-24); Allen Test Performed? Yes
[2020-01-03] MEDS ORDERED: IPRATROPIUM-ALBUTEROL 3 ML NEB INHALATION SCH (16:00)
[2020-01-03 16:57] LABS: Glucose,Whole Blood 237 mg/dL (75-99)
[2020-01-03] MEDS: INSULIN ASPART (NovoLOG) 100 UNIT/ML VIAL SQ SCH ×2 (17:25→21:57)
[2020-01-03] MEDS: methylPREDNISolone SOD SUCCI 40 MG/ML 1 ML VIAL IV SCH (17:25)
[2020-01-03] MEDS ORDERED: ACETAMINOPHEN TAB 325 MG TAB PO PRN (18:08)
[2020-01-03 20:21] LABS: Glucose,Whole Blood 218 mg/dL (75-99)
[2020-01-03] MEDS: FUROSEMIDE 10 MG/ML 2 ML VIAL IV SCH (21:57)
[2020-01-03] MEDS: ONDANSETRON 4 MG/2 ML VIAL IVP PRN (22:04)
[2020-01-04] MEDS: methylPREDNISolone SOD SUCCI 40 MG/ML 1 ML VIAL IV SCH ×5 (00:11→23:12)
[2020-01-04] MEDS: PANTOPRAZOLE 40 MG TABLET PO SCH ×2 (00:55→08:45)
[2020-01-04] MEDS: MAG HYDROX/AL HYDROX/SIMETH 30 ML CUP PO PRN (00:55)
[2020-01-04] MEDS: ALPRAZolam 0.25 MG TAB PO PRN ×2 (00:58→21:36)
[2020-01-04] MEDS: PROCHLORPERAZINE 10 MG TAB PO PRN ×2 (01:01→06:11)
[2020-01-04] MEDS: ONDANSETRON 4 MG/2 ML VIAL IVP PRN ×2 (03:58→12:11)
[2020-01-04] MEDS: INSULIN ASPART (NovoLOG) 100 UNIT/ML VIAL SQ SCH ×4 (06:24→21:31)
[2020-01-04 06:26] LABS: Glucose,Whole Blood 188 mg/dL (75-99)
[2020-01-04 06:33] LABS: Anisocytosis Slight; HCT 43.3 % (34.0-46.0); HGB 12.9 gm/dL (11.4-16.0); Hypochromasia Marked; MCH 26.8 pg (25.0-35.0); MCHC 29.9 g/dL (31.0-37.0); MCV 89.7 fL (80.0-100.0); Mean Platelet Volume 8.4; Platelet Count 407 k/uL (150-450); RBC 4.82 m/uL (3.80-5.40); RDW 18.7 % (11.5-15.5); WBC 11.6 k/uL (3.8-10.6)
[2020-01-04 06:58] LABS: Albumin 3.2 g/dL (3.5-5.0); Calcium 8.9 mg/dL (8.4-10.2); Magnesium 2.2 mg/dL (1.6-2.3); Potassium 4.4 mmol/L (3.5-5.1); Total Bilirubin 0.4 mg/dL (0.2-1.3); Total Protein 6.6 g/dL (6.3-8.2)
[2020-01-04] MEDS: IPRATROPIUM-ALBUTEROL 3 ML NEB INHALATION SCH ×4 (07:27→19:51)
[2020-01-04] MEDS ORDERED: PANTOPRAZOLE 40 MG TABLET PO SCH (08:00)
[2020-01-04] MEDS: FUROSEMIDE 10 MG/ML 2 ML VIAL IV SCH (08:45)
[2020-01-04] MEDS: LEVOTHYROXINE 100 MCG TAB PO SCH (08:45)
[2020-01-04] MEDS: SODIUM CHLORIDE 0.9% 1,000 ML IV SCH ×2 (08:47→15:00)
[2020-01-04] MEDS: FENOFIBRATE 160 MG TAB PO SCH (08:58)
--- NOTE | 2020-01-04 10:10 | P.PN ---
Subjective Progress Note Date: 01/04/20 Principal diagnosis: sob Due to persistent diarrhea patient had a rectal tube inserted for continuous drainage. Her blood pressure had been on the higher side. She states that her breathing has been getting better. No chest pain. She did mention some right side pain that goes into the right side of her lower back. No fevers or chills. No other overnight events. Objective - Vital Signs Vital signs: Vital Signs Temp 98.5 F 01/04/20 08:00 Pulse 108 H 01/04/20 08:00 Resp 24 01/04/20 08:00 BP 182/89 01/04/20 08:00 Pulse Ox 93 L 01/04/20 08:00 Intake & Output 01/03/20 01/04/20 01/04/20 18:59 06:59 18:59 Intake Total 600 Output Total 500 Balance 600 -500 Weight 97.5 kg Intake: IV 600 Sodium Chloride 0.9% 1, 600 000 ml @ 20 mls/hr IV . Q24H [facility] Rx#:[id number] Output: Urine 500 Other: Voiding Method Indwelling Catheter Indwelling Catheter # Voids 0 1 - Exam Constitutional: No acute distress, conversant, pleasant Eyes:Anicteric sclerae, moist conjunctiva, no lid-lag, PERRLA, ENMT: Oropharynx clear, no erythema, exudates Neck: Supple, FROM, no masses, or JVD, No carotid bruits, No thyromegaly Lungs: Bilateral diffuse wheezing, Normal respiratory effort, no accessory muscle use Cardiovascular: Heart regular in rate and rhythm, No murmurs, gallops, or rubs, No peripheral edema Abdominal: Soft, tender all over, no guarding, rebound or rigidity, Normoactive bowel sounds, No hepatomegaly, No splenomegaly, No palpable mass Skin: Normal temperature, tone, texture, turgor, no induration, No subcutaneous nodules, No rash, lesions, No ulcers Extremities: No digital cyanosis, No clubbing, Pedal pulses intact and symmetrical, Radial pulses intact and symmetrical, No calf tenderness Psychiatric: Alert and oriented to person, place and time, appropriate affect, intact judgement Neuro: Muscles Strength 5/5 in all 4 extremities, Sensation to light touch grossly present throughout, Cranial nerves II-XII grossly intact, no focal sensory deficits - Labs CBC & Chem 7: 01/04/20 05:45 01/04/20 05:45 Labs: Abnormal Lab Results - Last 24 Hours (Table) 01/03/20 01/03/20 01/03/20 Range/Units 12:35 14:25 16:47 WBC (3.8-10.6) k/uL MCHC (31.0-37.0) g/dL RDW (11.5-15.5) % ABG pH 7.30 L (7.35-7.45) ABG pO2 77 L (83-108) mmHg ABG O2 Saturation 93.1 L (94-97) % Chloride (98-107) mmol/L Carbon Dioxide (22-30) mmol/L BUN (7-17) mg/dL Creatinine (0.52-1.04) mg/dL Glucose (74-99) mg/dL POC Glucose (mg/dL) 237 H (75-99) mg/dL Albumin (3.5-5.0) g/dL Urine Appearance Cloudy H (Clear) Urine Protein 1+ H (Negative) Urine Bilirubin 1+ H (Negative) Amorphous Sediment Rare H (None) /hpf Urine Bacteria Rare H (None) /hpf Hyaline Casts 39 H (0-2) /lpf Urine Mucus Moderate H (None) /hpf 01/03/20 01/04/20 01/04/20 Range/Units 20:20 05:45 05:45 WBC 11.6 H (3.8-10.6) k/uL MCHC 29.9 L (31.0-37.0) g/dL RDW 18.7 H (11.5-15.5) % ABG pH (7.35-7.45) ABG pO2 (83-108) mmHg ABG O2 Saturation (94-97) % Chloride 108 H (98-107) mmol/L Carbon Dioxide 18 L (22-30) mmol/L BUN 39 H (7-17) mg/dL Creatinine 1.64 H (0.52-1.04) mg/dL Glucose 193 H (74-99) mg/dL POC Glucose (mg/dL) 218 H (75-99) mg/dL Albumin 3.2 L (3.5-5.0) g/dL Urine Appearance (Clear) Urine Protein (Negative) Urine Bilirubin (Negative) Amorphous Sediment (None) /hpf Urine Bacteria (None) /hpf Hyaline Casts (0-2) /lpf Urine Mucus (None) /hpf 01/04/20 Range/Units 06:24 WBC (3.8-10.6) k/uL MCHC (31.0-37.0) g/dL RDW (11.5-15.5) % ABG pH (7.35-7.45) ABG pO2 (83-108) mmHg ABG O2 Saturation (94-97) % Chloride (98-107) mmol/L Carbon Dioxide (22-30) mmol/L BUN (7-17) mg/dL Creatinine (0.52-1.04) mg/dL Glucose (74-99) mg/dL POC Glucose (mg/dL) 188 H (75-99) mg/dL Albumin (3.5-5.0) g/dL Urine Appearance (Clear) Urine Protein (Negative) Urine Bilirubin (Negative) Amorphous Sediment (None) /hpf Urine Bacteria (None) /hpf Hyaline Casts (0-2) /lpf Urine Mucus (None) /hpf Assessment and Plan Plan: Allergic reaction to bentyl in the ER, resolved. Acute CHF exacerbation, unknown type Acute on chronic hypoxic respiratory failure, requiring bipap for about 24 hours Acute COPD exacerbation Intractable vomiting Diarrhea tested negative for C.diff CKD 3 DM 2 HTN Patient now on NC, continue to keep sats above 92% Continue steroids and bronchodilators. Lasix 20mg IV BID Echo Send stool cx, stool for WBC Stool for giardia and cryptospidium antigens Clear liquid diet, Consult GI SSI with blood sugar checks every 6hrs Resume bp meds Rest of medical issues stable
--- NOTE | 2020-01-04 11:00 | ECHOF ---
Referral Reason:chf MEASUREMENTS -------- HEIGHT: 157.5 cm WEIGHT: 97.1 kg BP: 147/75 IVSd: 1.3 cm (0.6 - 1.1) LVIDd: 3.9 cm (3.9 - 5.3) LVPWd: 1.4 cm (0.6 - 1.1) IVSs: 1.5 cm LVIDs: 2.9 cm LVPWs: 1.3 cm LAESV Index (A-L): 32.11 ml/m RAP: 5.00 mmHg RVSP: 22.06 mmHg FINDINGS -------- Undetermined rhythm. This was a technically difficult study with suboptimal views. Pt. not compliant. The left ventricular size is normal. There is mild concentric left ventricular hypertrophy. Overa ll left ventricular systolic function is low-normal with, an EF between 50 - 55 %. The RV was not well visualized. LA is midly dilated 29-33ml/m2. The right atrium was not well visualized. 5.0mg of Lumason was utilized for enhancement of images Interatrial and interventricular septum intact. The aortic valve was not well visualized. There is no evidence of aortic regurgitation. There is no evidence of aortic stenosis. Mild mitral regurgitation is present. Mild tricuspid regurgitation present. There is no evidence of pulmonary hypertension. The right v entricular systolic pressure, as measured by Doppler, is 22.06mmHg. The pulmonic valve was not well visualized. AORTIC ROOT NOT VISUALIZED IVC Not well visulized. There is no pericardial effusion. CONCLUSIONS -------- 1. Undetermined rhythm. 2. This was a technically difficult study with suboptimal views. 3. Pt. not compliant. 4. The left ventricular size is normal. 5. There is mild concentric left ventricular hypertrophy. 6. Overall left ventricular systolic function is low-normal with, an EF between 50 - 55 %. 7. The RV was not well visualized. 8. LA is midly dilated 29-33ml/m2. 9. The right atrium was not well visualized. 10. 5.0mg of Lumason was utilized for enhancement of images 11. Interatrial and interventricular septum intact. 12. The aortic valve was not well visualized. 13. There is no evidence of aortic regurgitation. 14. There is no evidence of aortic stenosis. 15. Mild mitral regurgitation is present. 16. Mild tricuspid regurgitation present. 17. There is no evidence of pulmonary hypertension. 18. The right ventricular systolic pressure, as measured by Doppler, is 22.06mmHg. 19. The pulmonic valve was not well visualized. 20. AORTIC ROOT NOT VISUALIZED 21. IVC Not well visulized. 22. There is no pericardial effusion. CLIN APPLICATION SPECIALIST: Chari Mota RDCS
[2020-01-04 11:42] LABS: Glucose,Whole Blood 179 mg/dL (75-99)
[2020-01-04] MEDS: LOPERAMIDE 2 MG CAP PO SCH ×4 (11:42→21:31)
[2020-01-04 13:37] VITALS: BMI 39.3
[2020-01-04] MEDS ORDERED: PEG 3350-NA SULF,BICARB,CL/KCL 4,000 ML BOTTLE PO ONE (16:00)
[2020-01-04] MEDS: DILTIAZEM CD 180 MG CAP.ER.24H PO SCH (16:00)
[2020-01-04] MEDS: ESCITALOPRAM 20 MG TAB PO SCH ×2 (16:00→16:06)
[2020-01-04 16:52] LABS: Glucose,Whole Blood 170 mg/dL (75-99)
[2020-01-04] MEDS ORDERED: BISACODYL 5 MG TABLET.DR PO ONE (18:00)
--- NOTE | 2020-01-04 20:25 | P.CONS ---
History of Present Illness - Reason for Consult Consult date: 01/04/20 Nausea, vomiting, diarrhea Requesting physician: Carlitos Sheffield - Chief Complaint Nausea, vomiting, diarrhea, abdominal pain - History of Present Illness 59-year-old female with past medical history significant for diabetes mellitus, hypertension, COPD on home oxygen therapy, prior history of colitis and hypothyroidism who presented to the hospital with a constellation of symptoms including abdominal pain, diarrhea, nausea and vomiting. The patient was hospitalized with similar complaints approximately 2 months ago at the end of October when she was found to have computed tomography scan of the abdomen with findings of a nonspecific left-sided colitis, mild free fluid in the abdomen and an umbilical hernia as well as findings of a right sided lower lobe pneumonia. The patient was treated medically at that time. She was on antibiotic therapy with testing for Clostridium difficile negative at that time. On her previous hospitalization the patient had reported that the symptoms had started suddenly and had only been present for a few days. On her current presentation she reports that the diarrhea, nausea and vomiting have continued since her last hos pitalization. She does report a history of colonoscopy in 2016 in [place] at which time she reports being told she had colitis. However the patient is unclear if this was ischemic, infectious or inflammatory in nature and denies any chronic treatment for colitis. The patient does have a known history of COPD on home oxygen therapy. She denies any hematochezia or melena but is reporting upwards of 10 bowel movements per day. Laboratory evaluation on presentation was significant for a WBC of 11.6, hemoglobin 12.9 and platelet count of 407,000. Review of Systems REVIEW OF SYSTEMS: CONSTITUTIONAL: Denies any fevers, chills, weight change or fatigue. CARDIOVASCULAR: Denies any chest pain, palpitations high or low blood pressures RESPIRATORY: Denies any hemoptysis or cough but does suffer from shortness of breath at baseline. GENITOURINARY: No dysuria or hematuria. MUSCULOSKELETAL: No weakness reported. SKIN: Denies any new rashes or lesions, jaundice or pallor. PSYCHIATRIC: Denies any depression or anxiety. NEUROLOGY: Denies headache, denies any new focal deficits. EARS/NOSE/THROAT: No recent hearing change, congestion, nasal discharge or sore throat. EYES: No pain in eyes, discharge or change in vision. GASTROINTESTINAL: As per HPI. Past Medical History Past Medical History: Asthma, COPD, Diabetes Mellitus, Hypertension, Thyroid Disorder Additional Past Medical History / Comment(s): Hernia History of Any Multi-Drug Resistant Organisms: None Reported Past Surgical History: Orthopedic Surgery Additional Past Surgical History / Comment(s): teeth extraction 2 weeks ago total top 5-6 teeth total. Past Anesthesia/Blood Transfusion Reactions: No Reported Reaction Past Psychological History: No Psychological Hx Reported Smoking Status: Former smoker Past Alcohol Use History: None Reported Past Drug Use History: Marijuana Additional Drug Use History / Comment(s): OCCASIONAL MARIJUANA USE SINCE ITS BEEN LEGALIZED - Past Family History Father Family Medical History: Liver Disease Mother Family Medical History: COPD, Diabetes Mellitus, Hypertension Medications and Allergies Home Medications Medication Instructions Recorded Confirmed Type Diltiazem HCl [Cardizem CD] 360 mg PO DAILY 04/12/19 01/04/20 History Levothyroxine Sodium 200 mcg PO DAILY 04/12/19 01/04/20 History Omeprazole 20 mg PO DAILY 04/12/19 01/04/20 History metFORMIN HCL [Glucophage] 1,000 mg PO BID-W/MEALS 04/12/19 01/04/20 History glipiZIDE [Glucotrol] 10 mg PO DAILY 09/11/19 01/04/20 History Fenofibrate Nanocrystallized 145 mg PO DAILY 10/24/19 01/04/20 History [Fenofibrate] Escitalopram Oxalate [Lexapro] 20 mg PO DAILY 01/04/20 01/04/20 History amLODIPine [Norvasc] 10 mg PO DAILY 01/04/20 01/04/20 History Allergies Allergy/AdvReac Type Severity Reaction Status Date / Time dicyclomine [From Bentyl] Allergy Rapid Verified 01/04/20 12:22 Heart Rate NSAIDS (Non-Steroidal AdvReac ULCERS Verified 01/04/20 12:22 Anti-Inflamma Physical Exam Vitals: Vital Signs Temp Pulse Pulse Resp BP Pulse Ox 01/04/20 11:40 96 01/04/20 11:30 98.5 F 98 108 H 20 151/79 92 L 01/04/20 08:00 98.5 F 108 H 24 182/89 93 L 01/04/20 07:42 97 01/04/20 07:31 96 01/04/20 04:00 97.9 F 112 H 17 147/75 91 L 01/04/20 00:00 98.0 F 104 H 18 177/80 95 01/03/20 21:50 102 H 01/03/20 21:22 102 H 98 01/03/20 20:00 97.9 F 105 H 20 149/79 95 01/03/20 16:40 105 H 23 01/03/20 16:35 97.6 F 105 H 23 166/79 94 L 01/03/20 15:41 100 01/03/20 15:25 98 Intake and Output 01/03/20 01/04/20 01/04/20 22:59 06:59 14:59 Intake Total 600 Output Total 500 Balance 600 -500 Intake: IV 600 Sodium Chloride 0.9% 1, 600 000 ml @ 20 mls/hr IV . Q24H [facility] Rx#:[id number] Output: Urine 500 Other: Voiding Method Indwelling Catheter Indwelling Catheter Indwelling Catheter # Voids 0 1 Weight 97.5 kg On physical examination, patient appears comfortable in no apparent distress. HEAD: Normocephalic, atraumatic. EYES: No scleral icterus. No conjunctival injection. MOUTH: No lesions, tongue midline. NECK: Trachea midline, no gross abnormalities. CHEST: Decreased air entry in all cota. HEART: S1-S2 appreciated. ABDOMEN: Soft, obese, and mildly tender to palpation. Bowel sounds are positive. No organomegaly. No guarding or rigidity. EXTREMITIES: No pedal edema. SKIN: No rashes, no jaundice. NEUROLOGIC: Alert and oriented to person. No focal deficits. Results CBC & Chem 7: 01/04/20 05:45 01/04/20 05:45 Labs: Abnormal Lab Results - Last 24 Hours (Table) 01/03/20 01/03/20 01/03/20 Range/Units 12:35 14:25 16:47 WBC (3.8-10.6) k/uL MCHC (31.0-37.0) g/dL RDW (11.5-15.5) % ABG pH 7.30 L (7.35-7.45) ABG pO2 77 L (83-108) mmHg ABG O2 Saturation 93.1 L (94-97) % Chloride (98-107) mmol/L Carbon Dioxide (22-30) mmol/L BUN (7-17) mg/dL Creatinine (0.52-1.04) mg/dL Glucose (74-99) mg/dL POC Glucose (mg/dL) 237 H (75-99) mg/dL Albumin (3.5-5.0) g/dL Urine Appearance Cloudy H (Clear) Urine Protein 1+ H (Negative) Urine Bilirubin 1+ H (Negative) Amorphous Sediment Rare H (None) /hpf Urine Bacteria Rare H (None) /hpf Hyaline Casts 39 H (0-2) /lpf Urine Mucus Moderate H (None) /hpf 01/03/20 01/04/20 01/04/20 Range/Units 20:20 05:45 05:45 WBC 11.6 H (3.8-10.6) k/uL MCHC 29.9 L (31.0-37.0) g/dL RDW 18.7 H (11.5-15.5) % ABG pH (7.35-7.45) ABG pO2 (83-108) mmHg ABG O2 Saturation (94-97) % Chloride 108 H (98-107) mmol/L Carbon Dioxide 18 L (22-30) mmol/L BUN 39 H (7-17) mg/dL Creatinine 1.64 H (0.52-1.04) mg/dL Glucose 193 H (74-99) mg/dL POC Glucose (mg/dL) 218 H (75-99) mg/dL Albumin 3.2 L (3.5-5.0) g/dL Urine Appearance (Clear) Urine Protein (Negative) Urine Bilirubin (Negative) Amorphous Sediment (None) /hpf Urine Bacteria (None) /hpf Hyaline Casts (0-2) /lpf Urine Mucus (None) /hpf 01/04/20 01/04/20 Range/Units 06:24 11:41 WBC (3.8-10.6) k/uL MCHC (31.0-37.0) g/dL RDW (11.5-15.5) % ABG pH (7.35-7.45) ABG pO2 (83-108) mmHg ABG O2 Saturation (94-97) % Chloride (98-107) mmol/L Carbon Dioxide (22-30) mmol/L BUN (7-17) mg/dL Creatinine (0.52-1.04) mg/dL Glucose (74-99) mg/dL POC Glucose (mg/dL) 188 H 179 H (75-99) mg/dL Albumin (3.5-5.0) g/dL Urine Appearance (Clear) Urine Protein (Negative) Urine Bilirubin (Negative) Amorphous Sediment (None) /hpf Urine Bacteria (None) /hpf Hyaline Casts (0-2) /lpf Urine Mucus (None) /hpf Chest x-ray: report reviewed (Minimal pulmonary vascular congestion on chest x- ray.) Assessment and Plan (1) Nausea vomiting and diarrhea Narrative/Plan: 59-year-old female presented to the hospital due to complaints of nausea, vomiting, abdominal pain. Patient was previously here a few months ago with similar complaints. At that time computed tomography scan of the abdomen was significant for a specific colitis. She is only suffering for symptoms for a few days at that time, however reports persistent nausea, vomiting and diarrhea since being discharged. She had been treated conservatively with antibiotic therapy. She does report a history of colitis diagnosed in 2016 of these, but is unclear whether this was of infectious, inflammatory, or ischemic etiology. She denies any chronic medications for colitis. Unclear etiology of symptoms, plans are for endoscopic evaluation. May be secondary to inflammatory process, functional in nature, due to dietary intolerances or other etiology. Current Visit: Yes Status: Acute Code(s): R11.2 - NAUSEA WITH VOMITING, UNSPECIFIED; R19.7 - DIARRHEA, UNSPECIFIED SNOMED Code(s): 1080012 Plan: Supportive care Clear liquid diet Stool studies ordered, Clostridium difficile negative Bowel prep ordered Plan for colonoscopy for further evaluation tomorrow Continue other medical management at this time Further recommendations pending findings of endoscopic evaluation Thank you for allowing us to participate in the care of the patient, we will continue to follow
[2020-01-04 20:49] LABS: Glucose,Whole Blood 189 mg/dL (75-99)
[2020-01-04] MEDS: amLODIPine 10 MG TAB PO SCH (21:20)
[2020-01-05] MEDS: MORPHINE SULFATE 2 MG/ML SYRINGE IVP PRN ×3 (03:16→20:34)
[2020-01-05] MEDS: SODIUM CHLORIDE 0.9% 1,000 ML IV SCH ×3 (03:35→15:58)
[2020-01-05] MEDS: methylPREDNISolone SOD SUCCI 40 MG/ML 1 ML VIAL IV SCH ×3 (05:29→23:55)
[2020-01-05 06:17] LABS: Glucose,Whole Blood 151 mg/dL (75-99)
[2020-01-05] MEDS: INSULIN ASPART (NovoLOG) 100 UNIT/ML VIAL SQ SCH ×4 (06:18→20:34)
[2020-01-05 07:07] LABS: Anisocytosis Slight; Basophils % (A) 0 %; Eosinophils # (A) 0.1 k/uL (0-0.7); Eosinophils % (A) 1 %; HCT 37.9 % (34.0-46.0); HGB 12.1 gm/dL (11.4-16.0); Hypochromasia Moderate; Lymphocytes # (A) 1.1 k/uL (1.0-4.8); Lymphocytes % (A) 9 %; MCH 28.5 pg (25.0-35.0); MCHC 31.8 g/dL (31.0-37.0); MCV 89.5 fL (80.0-100.0); Mean Platelet Volume 8.3; Monocytes # (A) 0.6 k/uL (0-1.0); Monocytes % (A) 5 %; Neutrophils # (A) 10.9 k/uL (1.3-7.7); Neutrophils % (A) 85 %; Platelet Count 369 k/uL (150-450); RBC 4.24 m/uL (3.80-5.40); RDW 18.5 % (11.5-15.5); WBC 12.8 k/uL (3.8-10.6)
[2020-01-05] MEDS: IPRATROPIUM-ALBUTEROL 3 ML NEB INHALATION SCH ×4 (07:20→20:11)
[2020-01-05 07:40] LABS: Albumin 2.8 g/dL (3.5-5.0); Calcium 8.7 mg/dL (8.4-10.2); Magnesium 2.4 mg/dL (1.6-2.3); Phosphorus 3.7 mg/dL (2.5-4.5); Potassium 4.4 mmol/L (3.5-5.1); Total Bilirubin 0.2 mg/dL (0.2-1.3); Total Protein 5.8 g/dL (6.3-8.2)
[2020-01-05 08:10] LABS: C Reactive Protein 159.3 mg/L (<10.0)
[2020-01-05] MEDS ORDERED: methylPREDNISolone SOD SUCCI 40 MG/ML 1 ML VIAL IV SCH (09:00)
--- NOTE | 2020-01-05 11:10 | P.PN ---
Subjective Progress Note Date: 01/05/20 Principal diagnosis: sob Patient doing ok, no significant sob today. It seems that the diarrhea has been improving. Still having right sided pain radiating to the right flank area. Objective - Vital Signs Vital signs: Vital Signs Temp 97.8 F 01/05/20 08:00 Pulse 75 01/05/20 08:00 Resp 20 01/05/20 08:00 BP 163/74 01/05/20 08:00 Pulse Ox 91 L 01/05/20 08:00 Intake & Output 01/04/20 01/05/20 01/05/20 18:59 06:59 18:59 Intake Total 2000 Output Total 575 900 Balance -575 1100 Weight 97.5 kg 99 kg Intake: Oral 1999 Output: Urine 575 500 Urine/Stool Mix 400 Other: Voiding Method Indwelling Catheter Indwelling Catheter Indwelling Catheter - Exam Constitutional: No acute distress, conversant, pleasant Eyes:Anicteric sclerae, moist conjunctiva, no lid-lag, PERRLA, ENMT: Oropharynx clear, no erythema, exudates Neck: Supple, FROM, no masses, or JVD, No carotid bruits, No thyromegaly Lungs: Bilateral diffuse wheezing, Normal respiratory effort, no accessory muscle use Cardiovascular: Heart regular in rate and rhythm, No murmurs, gallops, or rubs, No peripheral edema Abdominal: Soft, tender all over, no guarding, rebound or rigidity, Normoactive bowel sounds, No hepatomegaly, No splenomegaly, No palpable mass Skin: Normal temperature, tone, texture, turgor, no induration, No subcutaneous nodules, No rash, lesions, No ulcers Extremities: No digital cyanosis, No clubbing, Pedal pulses intact and symmetrical, Radial pulses intact and symmetrical, No calf tenderness Psychiatric: Alert and oriented to person, place and time, appropriate affect, intact judgement Neuro: Muscles Strength 5/5 in all 4 extremities, Sensation to light touch grossly present throughout, Cranial nerves II-XII grossly intact, no focal sensory deficits - Labs CBC & Chem 7: 01/05/20 05:57 01/05/20 05:57 Labs: Abnormal Lab Results - Last 24 Hours (Table) 01/04/20 01/04/20 01/04/20 Range/Units 10:30 11:41 16:51 WBC (3.8-10.6) k/uL RDW (11.5-15.5) % Neutrophils # (1.3-7.7) k/uL Chloride (98-107) mmol/L Carbon Dioxide (22-30) mmol/L BUN (7-17) mg/dL Creatinine (0.52-1.04) mg/dL Glucose (74-99) mg/dL POC Glucose (mg/dL) 179 H 170 H (75-99) mg/dL Magnesium (1.6-2.3) mg/dL AST (14-36) U/L C-Reactive Protein (<10.0) mg/L Total Protein (6.3-8.2) g/dL Albumin (3.5-5.0) g/dL Stool Lactoferrin POSITIVE H (NEGATIVE) 01/04/20 01/05/20 01/05/20 Range/Units 20:48 05:57 05:57 WBC 12.8 H (3.8-10.6) k/uL RDW 18.5 H (11.5-15.5) % Neutrophils # 10.9 H (1.3-7.7) k/uL Chloride 110 H (98-107) mmol/L Carbon Dioxide 21 L (22-30) mmol/L BUN 43 H (7-17) mg/dL Creatinine 1.41 H (0.52-1.04) mg/dL Glucose 155 H (74-99) mg/dL POC Glucose (mg/dL) 189 H (75-99) mg/dL Magnesium 2.4 H (1.6-2.3) mg/dL AST 12 L (14-36) U/L C-Reactive Protein 159.3 H (<10.0) mg/L Total Protein 5.8 L (6.3-8.2) g/dL Albumin 2.8 L (3.5-5.0) g/dL Stool Lactoferrin (NEGATIVE) 01/05/20 Range/Units 06:15 WBC (3.8-10.6) k/uL RDW (11.5-15.5) % Neutrophils # (1.3-7.7) k/uL Chloride (98-107) mmol/L Carbon Dioxide (22-30) mmol/L BUN (7-17) mg/dL Creatinine (0.52-1.04) mg/dL Glucose (74-99) mg/dL POC Glucose (mg/dL) 151 H (75-99) mg/dL Magnesium (1.6-2.3) mg/dL AST (14-36) U/L C-Reactive Protein (<10.0) mg/L Total Protein (6.3-8.2) g/dL Albumin (3.5-5.0) g/dL Stool Lactoferrin (NEGATIVE) Microbiology - Last 24 Hours (Table) 01/04/20 10:30 Stool Culture - Preliminary Stool Assessment and Plan Plan: Allergic reaction to bentyl in the ER, resolved. Acute CHF exacerbation, systolic Echo showed EF low normal at 50-55% Pulmonary edema Acute on chronic hypoxic respiratory failure, requiring bipap for about 24 hours on admission, now off Acute COPD exacerbation Intractable vomiting Severe diarrhea requiring flexiseal rectal tube tested negative for C.diff CKD 3 DM 2 HTN Patient now on NC, continue to keep sats above 92% Continue bronchodilators, wean down steroids. Initially she was diuresed with lasix due to pulm edema, but with severe diarrhea/dehydration, it was held. Likely to benefit from ERLIN inhibitor addition once she becomes more stable Stool WBC positive, stool cx pending, stool for giardia and cryptospidium antigens both negative NPO for colonoscopy today, by GI. SSI with blood sugar checks every 6hrs Resume bp meds Rest of medical issues stable
[2020-01-05 11:11] LABS: Erythrocyte Sedimentation Rate 25 mm/hr (0-20)
[2020-01-05] MEDS ORDERED: PROPOFOL 10 MG/ML 20 ML VIAL IV ONE (12:07)
[2020-01-05] MEDS ORDERED: IV FLUID CONTINUATION 800 ML IV ONE (12:12)
--- NOTE | 2020-01-05 12:38 | P.PCN ---
Date of Procedure: 01/05/20 Description of Procedure: BRIEF HISTORY: 59-year-old female with past medical history significant for diabetes mellitus, hypertension, COPD on home oxygen therapy, prior history of colitis and hypothyroidism who presented to the hospital with a constellation of symptoms including abdominal pain, diarrhea, nausea and vomiting. The patient was hospitalized with similar complaints approximately 2 months ago at the end of October when she was found to have computed tomography scan of the abdomen with findings of a nonspecific left-sided colitis, mild free fluid in the abdomen and an umbilical hernia as well as findings of a right sided lower lobe pneumonia. The patient was treated medically at that time. She was on antibiotic therapy with testing for Clostridium difficile negative at that time. On her previous hospitalization the patient had reported that the symptoms had started suddenly and had only been present for a few days. On her current presentation she reports that the diarrhea, nausea and vomiting have continued since her last hospitalization. She does report a history of colonoscopy in 2016 in [place] at which time she reports being told she had colitis. However the patient is unclear if this was ischemic, infectious or inflammatory in nature and denies any chronic treatment for colitis. The patient does have a known history of COPD on home oxygen therapy. She denies any hematochezia or melena but is reporting upwards of 10 bowel movements per day. Laboratory evaluation on presentation was significant for a WBC of 11.6, hemoglobin 12.9 and platelet count of 407,000. PROCEDURE PERFORMED: Incomplete colonoscopy with biopsy. PREOPERATIVE DIAGNOSIS: Diarrhea, altered bowel function. ESTIMATED BLOOD LOSS: Minimal. IV sedation per Anesthesia. PROCEDURE: After informed consent was obtained, the patient, was brought into the endoscopy unit. IV sedation was administered by Anesthesia under continuous monitoring. Digital rectal examination was normal. Initially the Olympus CF-190 flexible video colonoscope was then inserted in the rectum, gradually advanced to the descending colon. Complete colonoscopy could not be performed secondary to a poor prep with a large amount of solid and liquid stool throughout the visualized colon. In the descending colon there was an area of ulceration, friability and erythema consistent with nonspecific colitis which was biopsied. Biopsies were taken as the scope was withdrawn through the whole left colon. No gross abnormalities otherwise noted. Complete visualization of the mucosa however was inhibited by poor prep. Patient tolerated the procedure well. IMPRESSION: Incomplete colonoscopy secondary to a poor prep with solid and liquid stool throughout the visualized colon. Nonspecific left colonic inflammation, erythema and friability consistent with nonspecific colitis with biopsies of the left colon taken. RECOMMENDATIONS: Findings of this examination were discussed with the patient. Okay to resume liquid diet and advance to low fiber, low residual as tolerated. Agree with initiation of steroid therapy with Solu-Medrol 20 mg every 8 hours. Would recommend backing off on antidiarrheals as symptoms improve. Await pathology from biopsies.
[2020-01-05] MEDS: LOPERAMIDE 2 MG CAP PO SCH ×4 (13:11→20:34)
[2020-01-05] MEDS: ESCITALOPRAM 20 MG TAB PO SCH (13:14)
[2020-01-05] MEDS: amLODIPine 10 MG TAB PO SCH (13:14)
[2020-01-05] MEDS: DILTIAZEM CD 180 MG CAP.ER.24H PO SCH (13:14)
[2020-01-05] MEDS: FENOFIBRATE 160 MG TAB PO SCH (13:14)
[2020-01-05] MEDS: LEVOTHYROXINE 100 MCG TAB PO SCH (13:28)
[2020-01-05] MEDS: PANTOPRAZOLE 40 MG TABLET PO SCH (13:28)
[2020-01-05 13:32] LABS: Glucose,Whole Blood 164 mg/dL (75-99)
[2020-01-05 17:28] LABS: Glucose,Whole Blood 132 mg/dL (75-99)
[2020-01-05 20:23] LABS: Glucose,Whole Blood 161 mg/dL (75-99)
[2020-01-06] MEDS: SODIUM CHLORIDE 0.9% 1,000 ML IV SCH ×2 (03:13→17:58)
[2020-01-06 05:59] LABS: Glucose,Whole Blood 160 mg/dL (75-99)
[2020-01-06] MEDS: INSULIN ASPART (NovoLOG) 100 UNIT/ML VIAL SQ SCH ×4 (06:30→21:03)
[2020-01-06] MEDS: MAG HYDROX/AL HYDROX/SIMETH 30 ML CUP PO PRN (06:36)
[2020-01-06] MEDS: IPRATROPIUM-ALBUTEROL 3 ML NEB INHALATION SCH ×4 (07:55→19:45)
[2020-01-06] MEDS: DILTIAZEM CD 180 MG CAP.ER.24H PO SCH (09:30)
[2020-01-06] MEDS: LEVOTHYROXINE 100 MCG TAB PO SCH (09:30)
[2020-01-06] MEDS: FENOFIBRATE 160 MG TAB PO SCH (09:31)
[2020-01-06] MEDS: LOPERAMIDE 2 MG CAP PO SCH ×4 (09:31→21:02)
[2020-01-06] MEDS: ESCITALOPRAM 20 MG TAB PO SCH (09:31)
[2020-01-06] MEDS: PANTOPRAZOLE 40 MG TABLET PO SCH (09:31)
[2020-01-06] MEDS: methylPREDNISolone SOD SUCCI 40 MG/ML 1 ML VIAL IV SCH ×3 (09:31→23:40)
[2020-01-06] MEDS: amLODIPine 10 MG TAB PO SCH (09:31)
--- NOTE | 2020-01-06 09:46 | XR ---
EXAMINATION TYPE: XR chest 1V portable DATE OF EXAM: 01/06/2020 COMPARISON: 01/03/2020 HISTORY: Shortness of breath TECHNIQUE: Single frontal view of the chest is obtained. FINDINGS: New small right pleural effusion and right basilar airspace disease. Cardiomediastinal vanessa houette is again enlarged. Minimal pulmonary vascular congestion. Osseous structures are grossly inta ct. IMPRESSION: New small right pleural effusion and right basilar airspace disease, likely atelectasis. Correlate for congestive heart failure.
[2020-01-06 11:28] LABS: Glucose,Whole Blood 134 mg/dL (75-99)
--- NOTE | 2020-01-06 15:52 | P.PN ---
Subjective Progress Note Date: 01/06/20 Principal diagnosis: Diarrhea, shortness of breath Patient was seen and examined. No acute events overnight. Patient underwent colonoscopy yesterday, incomplete prep. She reports one episode of diarrhea today. Patient denies any chest pain, shortness breath or palpitations. No nausea or vomiting. No fever or chills. Currently on 4 L nasal cannula. Objective - Vital Signs Vital signs: Vital Signs Temp 98.3 F 01/06/20 12:00 Pulse 75 01/06/20 15:31 Resp 18 01/06/20 12:00 BP 157/70 01/06/20 12:00 Pulse Ox 93 L 01/06/20 12:00 Intake & Output 01/05/20 01/06/20 01/06/20 18:59 06:59 18:59 Intake Total 522 760 600 Output Total 800 800 Balance -278 -40 600 Weight 101.5 kg Intake: IV 300 Oral 222 760 600 Output: Urine 800 800 Other: Voiding Method Indwelling Catheter Indwelling Catheter Indwelling Catheter # Voids 1 # Bowel Movements 1 - Exam General: [non toxic], [no distress on 4 L since], [appears at stated age] Derm: [warm], [dry] Head: [atraumatic], [normocephalic], [symmetric] Eyes: [EOMI], [no lid lag], [anicteric sclera] Mouth: [no lip lesion], [mucus membranes moist] Cardiovascular: [S1S2 reg], [no murmur], [positive DP pulse bilateral], Lungs: [Decreased breath sounds bilateral], [no rhonchi, no rales] , [no accessory muscle use] Abdominal: [soft], [ nontender to palpation], [no guarding], [no appreciable organomegaly] Ext: [no gross muscle atrophy], [no edema], [no contractures] Neuro: [no focal neuro deficits] Psych: [Alert], [oriented], [appropriate affect] - Labs CBC & Chem 7: 01/05/20 05:57 01/05/20 05:57 Labs: Abnormal Lab Results - Last 24 Hours (Table) 01/05/20 01/05/20 01/06/20 Range/Units 17:14 20:22 05:56 POC Glucose (mg/dL) 132 H 161 H 160 H (75-99) mg/dL 01/06/20 Range/Units 11:22 POC Glucose (mg/dL) 134 H (75-99) mg/dL Assessment and Plan Assessment: Acute on chronic hypoxic respiratory failure, due to acute CHF exacerbation Severe diarrhea Hyperchloremic metabolic acidosis Chronic kidney disease Diabetes mellitus Hypertension Chest x-ray this morning shows small right toe fusion and right basilar airspace disease, likely atelectasis. Echocardiogram with low EF 50-55% with mild concentric LVH. Plans: DC IVF. Start Lasix 40 mg IV twice a day. Strict intake and output. Daily weights. Colonoscopy inconclusive. Stool for cryptosporidium and Giardia negative. Stool lactoferrin positive. C. diff negative. Plans: Started on Solu-Medrol 20 mg IV every 8 hours. Zofran as needed for nausea or vomiting. Protonix by mouth. Imodium as needed. Low fiber diet. Follow stool culture. Follow GI consultation. Possibly related to severe diarrhea. Plans: Encourage hydration by mouth. DC IVF. Repeat BMP tomorrow morning. Creatinine 1.41. Appears at baseline. Plans: Encourage hydration by mouth. Avoid nephrotoxins. Repeat BMP tomorrow morning. [id number] glucose 134. Plans: Insulin sliding scale. Regular Accu-Cheks. Hypoglycemic precautions. BP 157/70. Plans: Continue amlodipine, diltiazem. Monitor vitals, adjust medications as necessary. DVT prophylaxis: [SCD] Discussed with: [Patient] Anticipated discharge: [1-2 days] Anticipated discharge place: [Home versus rehab] A total of [35] minutes was spent on the care of this complex patient more than 50% of the time was spent in counseling and care coordination. [Patient admitted for severe diarrhea. Colonoscopy inconclusive. CHF exace rbation requiring IV diuresis. She is pending clinical improvement. Likely DC in 1-2 days.]
[2020-01-06 17:44] LABS: Glucose,Whole Blood 159 mg/dL (75-99)
--- NOTE | 2020-01-06 19:52 | P.PN ---
Subjective Progress Note Date: 01/06/20 Principal diagnosis: Diarrhea, colitis Patient is seen lying in bed reporting improvement in bowel movements with only 1 loose bowel movement today. Tolerating diet. No abdominal pain. Objective - Vital Signs Vital signs: Vital Signs Temp 98.3 F 01/06/20 03:45 Pulse 80 01/06/20 08:08 Resp 18 01/06/20 03:45 BP 131/63 01/06/20 03:45 Pulse Ox 92 L 01/06/20 03:45 Intake & Output 01/05/20 01/06/20 01/06/20 18:59 06:59 18:59 Intake Total 522 760 Output Total 800 800 Balance -278 -40 Weight 101.5 kg Intake: IV 300 Oral 222 760 Output: Urine 800 800 Other: Voiding Method Indwelling Catheter Indwelling Catheter # Voids 1 # Bowel Movements 1 - Exam On physical examination, patient appears comfortable in no apparent distress. HEAD: Normocephalic, atraumatic. EYES: No scleral icterus. No conjunctival injection. MOUTH: No lesions, tongue midline. NECK: Trachea midline, no gross abnormalities. CHEST: Decreased air entry in all lung cota. ABDOMEN: Soft, obese. Bowel sounds are positive. No organomegaly. No guarding or rigidity. EXTREMITIES: No pedal edema. SKIN: No rashes, no jaundice. NEUROLOGIC: Alert and oriented x3. No focal deficits. - Labs CBC & Chem 7: 01/05/20 05:57 01/05/20 05:57 Labs: Abnormal Lab Results - Last 24 Hours (Table) 01/05/20 01/05/20 01/05/20 Range/Units 05:57 13:31 17:14 ESR 25 H (0-20) mm/hr POC Glucose (mg/dL) 164 H 132 H (75-99) mg/dL 01/05/20 01/06/20 Range/Units 20:22 05:56 ESR (0-20) mm/hr POC Glucose (mg/dL) 161 H 160 H (75-99) mg/dL Assessment and Plan (1) Nausea vomiting and diarrhea Narrative/Plan: 59-year-old female presented to the hospital due to complaints of nausea, vomiting, abdominal pain. Patient was previously here a few months ago with similar complaints. At that time computed tomography scan of the abdomen was significant for a specific colitis. She is only suffering for symptoms for a few days at that time, however reports persistent nausea, vomiting and diarrhea since being discharged. She had been treated conservatively with antibiotic therapy. She does report a history of colitis diagnosed in 2016 of these, but is unclear whether this was of infectious, inflammatory, or ischemic etiology. She denies any chronic medications for colitis. Unclear etiology of symptoms, was performed with findings of patchy erythema and inflammation in the left colon with biopsies taken. Currently improved on combination of steroid therapy and antidiarrheals. Current Visit: Yes Status: Acute Code(s): R11.2 - NAUSEA WITH VOMITING, UNSPECIFIED; R19.7 - DIARRHEA, UNSPECIFIED SNOMED Code(s): 6780544 Plan: Supportive care Okay for low fiber, low residual diet Stool studies ordered, Clostridium difficile negative Await pathology from biopsies Continue antidiarrheals, if symptoms remain improved would recommend switching to as needed Continue steroid therapy Continue other medical management at this time Further recommendations pending findings of biopsies from colonoscopy Thank you for allowing us to participate in the care of the patient, we will continue to follow
[2020-01-06 20:22] LABS: Glucose,Whole Blood 179 mg/dL (75-99)
[2020-01-06] MEDS: FUROSEMIDE 10 MG/ML 4 ML VIAL IV SCH (21:02)
[2020-01-06] MEDS: BACITRACIN 500 UNIT/GM OINT 28.4 GM TUBE TOPICAL SCH (21:04)
[2020-01-07 02:07] LABS: Glucose,Whole Blood 170 mg/dL (75-99)
[2020-01-07 05:33] VITALS: RESP 16
[2020-01-07 06:08] LABS: Glucose,Whole Blood 178 mg/dL (75-99)
[2020-01-07] MEDS: INSULIN ASPART (NovoLOG) 100 UNIT/ML VIAL SQ SCH ×2 (06:44→12:39)
[2020-01-07] MEDS: IPRATROPIUM-ALBUTEROL 3 ML NEB INHALATION SCH ×2 (08:12→11:03)
[2020-01-07] MEDS: methylPREDNISolone SOD SUCCI 40 MG/ML 1 ML VIAL IV SCH (08:18)
[2020-01-07] MEDS: LEVOTHYROXINE 100 MCG TAB PO SCH (08:19)
[2020-01-07] MEDS: FUROSEMIDE 10 MG/ML 4 ML VIAL IV SCH (08:19)
[2020-01-07] MEDS: amLODIPine 10 MG TAB PO SCH (08:20)
[2020-01-07] MEDS: DILTIAZEM CD 180 MG CAP.ER.24H PO SCH (08:20)
[2020-01-07] MEDS: FENOFIBRATE 160 MG TAB PO SCH (08:20)
[2020-01-07] MEDS: LOPERAMIDE 2 MG CAP PO SCH (08:20)
[2020-01-07] MEDS: PANTOPRAZOLE 40 MG TABLET PO SCH (08:20)
[2020-01-07] MEDS: ESCITALOPRAM 20 MG TAB PO SCH (08:20)
[2020-01-07 08:49] LABS: Anisocytosis Slight; Basophils % (A) 0 %; Eosinophils % (A) 0 %; HCT 37.6 % (34.0-46.0); HGB 12.5 gm/dL (11.4-16.0); Hypochromasia Slight; Lymphocytes # (A) 1.2 k/uL (1.0-4.8); Lymphocytes % (A) 11 %; MCHC 33.3 g/dL (31.0-37.0); MCV 87.2 fL (80.0-100.0); Mean Platelet Volume 8.4; Monocytes # (A) 0.5 k/uL (0-1.0); Monocytes % (A) 5 %; Neutrophils # (A) 9.4 k/uL (1.3-7.7); Neutrophils % (A) 83 %; Platelet Count 364 k/uL (150-450); RBC 4.31 m/uL (3.80-5.40); WBC 11.2 k/uL (3.8-10.6)
[2020-01-07 09:04] LABS: Albumin 2.8 g/dL (3.5-5.0); Calcium 8.6 mg/dL (8.4-10.2); Potassium 4.1 mmol/L (3.5-5.1); Total Bilirubin 0.4 mg/dL (0.2-1.3); Total Protein 5.8 g/dL (6.3-8.2)
[2020-01-07] MEDS: BACITRACIN 500 UNIT/GM OINT 28.4 GM TUBE TOPICAL SCH (12:14)
[2020-01-07 12:22] VITALS: BP 129/70; PULSE 72; TEMP 97
[2020-01-07 12:37] LABS: Glucose,Whole Blood 225 mg/dL (75-99)
--- NOTE | 2020-01-07 17:00 | CONS ---
CONSULTATION REASON FOR CONSULT: Renal failure. HISTORY OF PRESENT ILLNESS: Patient is a 59-year-old female who was admitted to the hospital on 01/03/2020 with complaints of vomiting and diarrhea and abdominal pain. This has improved. The patient was also hypotensive with systolic blood pressure in the 70s and 80s. She has been hydrated. The patient denies use of any nonsteroidal anti-inflammatory agents prior to admission. She was not on any ERLIN inhibitors prior to admission. Serum creatinine was 1.2. It peaked to 1.64 on 01/04/2020 and it is now down to 1.01. Currently patient is maintained on Lasix, as she developed volume overload. Chest x- ray from yesterday did show evidence of pulmonary vascular congestion. Overall patient states she is feeling better. She denies any prior history of kidney diseases. Patient was also evaluated by GI during her admission and is status post colonoscopy on 01/05/2020, which was incomplete. PAST MEDICAL HISTORY: Her past medical history is significant for hypertension, type 2 diabetes, COPD, hypothyroidism, osteoarthritis. PAST SURGICAL HISTORY: Orthopedic surgery, tooth extraction. SOCIAL HISTORY: Patient is a former smoker. No history of drug abuse or alcohol abuse. MEDICATIONS: Medications at home prior to admission included Cardizem, omeprazole, Synthroid, Glucophage, Imodium, Glucotrol, Norvasc, updraft treatments, Flagyl, prednisone. ALLERGIES: ALLERGIES include BENTYL AND NSAIDS, which caused peptic ulcers. REVIEW OF SYSTEMS: As per HPI. Other systems negative. PHYSICAL EXAMINATION: Patient is comfortable, awake, not in any acute distress. Blood pressure is 129/70, heart rate 72 per minute. She is afebrile. EXAMINATION OF THE HEART: S1 and S2. EXAMINATION OF LUNGS: Bilateral breath sounds are heard. Decreased breath sounds at bases. ABDOMEN: Soft, non-tender. Examination of lower extremities shows trace edema bilaterally. MEDICAL TRANSCRIPTIONIST exam is grossly intact. LABS: Labs show sodium 134, potassium 4.1, chloride 102, BUN 33, serum creatinine 1.01, hemoglobin 12.5 g/dL. ASSESSMENT: 1. Acute kidney injury associated with hypotension and hypoperfusion, currently improved significantly. 2. Congestive heart failure, currently being diuresed. Ejection fraction was 50% to 55% this admission. Patient did have a mildly dilated left atrium. 3. Nausea and vomiting on initial admission, currently resolved. Patient did have a colonoscopy; however, it was incomplete secondary to incomplete prep. 4. History of hypertension. Blood pressure is controlled, currently on the lower side. PLAN: May continue with the diuretics. Patient was maintained on loop diuretics at home as well. Repeat renal profile as outpatient in about 1-2 weeks. Patient is advised to continue to avoid the use of NSAIDs. She may resume her Glucophage. Thank you for this consultation. Will continue to follow the patient with you during her hospitalization. MMODL / IJN: [id number] /
--- NOTE | 2020-01-07 17:22 | P.DS ---
Providers Date of admission: 01/03/20 09:03 Expected date of discharge: 01/07/20 Attending physician: Carlitos Sheffield MD Consults: 01/04/20 09:48 Consult Physician Routine Consulting Provider: Sylvester Whitaker Consult Reason/Comments: diarrhea Do you want consulting provider notified?: Yes 01/06/20 15:52 Consult Physician Routine Consulting Provider: Digna Ramírez Consult Reason/Comments: CKD, metabolic acidosis Do you want consulting provider notified?: Yes Primary care physician: Marie Dean MD Hospital Course: 59-year-old female with PMH of COPD, diabetes mellitus, hypertension and hypothyroidism presents the ED for nausea, vomiting, abdominal discomfort and diarrhea. She had recently been hospitalized for acute colitis. She has a history of chronic respiratory failure dependent on 2 L home O2 due to COPD. In the ED, she was given Zofran and Bentyl. She developed moderate to severe respiratory distress soon after. This is thought to be related to an ALLERGIC reaction to Bentyl which was treated with epinephrine, Ativan, morphine, nitroglycerin and steroids. Her respiratory status and significantly improved. Venous blood gas was done in the ED which showed pH of 7.22, pCO2 of 27 and bicarbonate of 18. Patient was admitted for further evaluation and management. She was initially started on Lasix IV for concerns of acute CHF exacerbation. Her ALLERGIC reaction quickly resolved from the emergency room. GI was consulted for her diarrhea and recommended supportive care, clear liquid diet and stool studies. She underwent colonoscopy where biopsies were taken but was incomplete due to inadequate prep. Her stool culture was preliminarily negative at the time of discharge. Her stool for lactoferrin was positive. Stool for cryptosporidium was negative. Stool for Giardia was negative. C. diff was negative. Coronavirus testing was negative. GI recommended to start her on Solu-Medrol 20 mg IV 3 times a day. She had no further episodes of diarrhea while hospitalized. Repeat chest x-ray showed small right pleural effusion and right basilar airspace disease which is likely related to atelectasis. Echocardiogram was ordered which showed EF of 50-55% with mild concentric LVH. Her IV was discontinued and she was started on Lasix 40 mg IV twice a day. Her respiratory status progressively improved throughout her hospitalization. Patient was seen and examined this morning. No acute events overnight. Patient reports no complaints. No further episodes of diarrhea today. She also denies any shortness of breath, chest pain or palpitations. Patient requesting to go home today. She does have 2 L of oxygen at home. General: [non toxic], [no distress on 3 L since], [appears at stated age] Derm: [warm], [dry] Head: [atraumatic], [normocephalic], [symmetric] Eyes: [EOMI], [no lid lag], [anicteric sclera] Mouth: [no lip lesion], [mucus membranes moist] Cardiovascular: [S1S2 reg], [no murmur], [positive DP pulse bilateral], Lungs: [Decreased breath sounds bilateral], [no rhonchi, no rales] , [no accessory muscle use] Abdominal: [soft], [ nontender to palpation], [no guarding], [no appreciable org anomegaly] Ext: [no gross muscle atrophy], [no edema], [no contractures] Neuro: [no focal neuro deficits] Psych: [Alert], [oriented], [appropriate affect] Acute on chronic hypoxic respiratory failure, due to acute CHF exacerbation Severe diarrhea Chronic kidney disease Diabetes mellitus Hypertension Chest x-ray this morning shows small right pleural effusion and right basilar airspace disease, likely atelectasis. Echocardiogram with low EF 50-55% with mild concentric LVH. Plans: Continue Lasix at home. Strict intake and output. Daily weights. Colonoscopy inconclusive. Stool for cryptosporidium and Giardia negative. Stool lactoferrin positive. C. diff negative. Plans: Started on Solu-Medrol 20 mg IV every 8 hours. Zofran as needed for nausea or vomiting. Protonix by mouth. Imodium as needed. Low fiber diet. Follow stool culture. Follow GI in the outpatient setting. Discontinue metformin. Creatinine 1.03. Appears at baseline. Plans: Encourage hydration by mouth. Avoid nephrotoxins. [id number] glucose 225. Plans: Insulin sliding scale. Regular Accu-Cheks. Hypoglycemic precautions. BP 129/70. Plans: Continue amlodipine, diltiazem. Monitor vitals, adjust medications as necessary. DVT prophylaxis: [SCD] Discussed with: [Patient] Anticipated discharge: [today] Anticipated discharge place: [Home versus rehab] A total of [35] minutes was spent on the care of this complex patient more than 50% of the time was spent in counseling and care coordination. [Patient admitted for severe diarrhea. Colonoscopy inconclusive. Diarrhea resolved. Respiratory status back to baseline. Asked nurse to ambulate patient with 2 L home O2. Anticipated DC home today. This complex discharge took about 35 minutes to complete.] Pertinent Studies: Chest x-ray, echocardiogram Procedures: Colonoscopy Patient Condition at Discharge: Stable Plan - Discharge Summary New Discharge Prescriptions: New Loperamide [Imodium] 2 mg PO QID #14 cap Furosemide [Lasix] 40 mg PO DAILY #30 tablet Continue Omeprazole 20 mg PO DAILY Levothyroxine Sodium 200 mcg PO DAILY Diltiazem HCl [Cardizem CD] 360 mg PO DAILY glipiZIDE [Glucotrol] 10 mg PO DAILY Fenofibrate Nanocrystallized [Fenofibrate] 145 mg PO DAILY Escitalopram Oxalate [Lexapro] 20 mg PO DAILY amLODIPine [Norvasc] 10 mg PO DAILY Discontinued metFORMIN HCL [Glucophage] 1,000 mg PO BID-W/MEALS Discharge Medication List Diltiazem HCl [Cardizem CD] 360 mg PO DAILY 04/12/19 [History] Levothyroxine Sodium 200 mcg PO DAILY 04/12/19 [History] Omeprazole 20 mg PO DAILY 04/12/19 [History] glipiZIDE [Glucotrol] 10 mg PO DAILY 09/11/19 [History] Fenofibrate Nanocrystallized [Fenofibrate] 145 mg PO DAILY 10/24/19 [History] Escitalopram Oxalate [Lexapro] 20 mg PO DAILY 01/04/20 [History] amLODIPine [Norvasc] 10 mg PO DAILY 01/04/20 [History] Furosemide [Lasix] 40 mg PO DAILY #30 tablet 01/07/20 [Rx] Loperamide [Imodium] 2 mg PO QID #14 cap 01/07/20 [Rx] Follow up Appointment(s)/Referral(s): Marie Dean MD [Primary Care Provider] - 01/15/20 3:40 pm Sylvester Whitaker MD [STAFF PHYSICIAN] - 01/17/20 11:00 am (Appt is with Angela Dominguez NP, please arrive 15 minutes early for paperwork) Patient Instructions/Handouts: Colitis (ED) Activity/Diet/Wound Care/Special Instructions: Diet: Low fiber FU PCP within 3 days of DC. FU GI within 1 week of DC. Take all medications as advised. Discharge Disposition: HOME SELF-CARE
--- NOTE | 2020-01-10 06:47 | CDI ---
Documentation Clarification Form Date: 01/10/2020 From: Wisam Martinez Phone: If you have a question about this query, please contact Ryann Ingram, Avid Editor at [phone] between 8am and 5pm. Admit Date: 01/03/2020 Discharge Date: 01/07/2020 Patient Name: Lillie Santana Visit Number: [id number] ATTENTION: The Clinical Documentation Specialists (CDI) and [facility] Coding Staff appreciate your assistance in clarifying documentation. Please respond to the clarification below the line at the bottom and electronically sign. The CDI & [facility] Coding staff will review the response and follow-up if needed. Please note: Queries are made part of the Legal Health Record. If you have any questions, please contact the author of this message via ITS. Dear Lisbeth Pham., The final diagnosis of the pathology report state Non-specific colitis with focal eschar suggestive of ischemic colitis. Documentation states:She does report a history of colitis diagnosed in 2016 of these, but is unclear whether this was of infectious, inflammatory, or ischemic etiology. Patient history/risk factors: Diarhhea, CHF, ARF, CKD Treatment: Improved on combination of steroid therapy and antidiarrheals. In your professional opinion, do you agree with the pathology report specifying Colitis as Ischemic Colitis? Yes No Other (please specify) Unable to determine unable to determine at this time from information given during this admission MTDD
== END 2020-01-07 15:04 | disposition home or self-care (01) | DRG 291 ==
LOC: EC 05:36 → 3SCARD 09:03
PROVIDERS: ADMIT Internal Medicine; ATTEND Internal Medicine
PROC: 0DBG8ZX Excision of Left Large Intestine, Via Natural or Artificial Opening Endoscopic, Diagnostic (ICD-10-PCS; principal; 2020-01-05 08:35)
DX: I13.0 Hypertensive heart and chronic kidney disease with heart failure and stage 1 through stage 4 chronic kidney disease, or unspecified chronic kidney disease (principal); J96.21 Acute and chronic respiratory failure with hypoxia; I50.21 Acute systolic (congestive) heart failure; N17.9 Acute kidney failure, unspecified; J44.1 Chronic obstructive pulmonary disease with (acute) exacerbation; E87.2 Acidosis; E11.22 Type 2 diabetes mellitus with diabetic chronic kidney disease; K52.9 Noninfective gastroenteritis and colitis, unspecified; E03.9 Hypothyroidism, unspecified; N18.3 Chronic kidney disease, stage 3 (moderate); Z79.899 Other long term (current) drug therapy; Z79.890 Hormone replacement therapy; Z79.84 Long term (current) use of oral hypoglycemic drugs; Z88.6 Allergy status to analgesic agent; Z91.09 Other allergy status, other than to drugs and biological substances; Z98.890 Other specified postprocedural states; Z87.891 Personal history of nicotine dependence; Z83.3 Family history of diabetes mellitus; Z82.5 Family history of asthma and other chronic lower respiratory diseases; Z82.49 Family history of ischemic heart disease and other diseases of the circulatory system; Z99.81 Dependence on supplemental oxygen; Z83.79 Family history of other diseases of the digestive system; Z11.59 Encounter for screening for other viral diseases
CPT/HCPCS: 36415; 36600; 45380; 51702; 71045; 80053; 81001; 82803; 82805; 83605; 83630; 83690; 83735; 83880; 83993; 84100; 84484; 85025; 85027; 85652; 86140; 87045; 87046; 87324; 87328; 87329; 88305; 93005; 93306; 94640; 94660; 94760; 96361; 96365; 96372; 96374; 96375; 96376; 99291